=== PATIENT | female | born 1995 | race African-American/Black ===

== ENCOUNTER 2018-03-02 20:41 | Outpatient (REF) | payer MEDICAID, SELFPAY ==
[2018-03-02 22:10] LABS: HCG Qual (Serum) Negative
== END 2018-03-02 21:01 ==
LOC: NCHCN 20:41
PROVIDERS: PCP Specialist/Technologist Athletic Trainer; Visit Provider Specialist/Technologist Athletic Trainer
DX: N91.2 Amenorrhea, unspecified (principal)
CPT/HCPCS: 84703

== ENCOUNTER 2018-03-18 20:09 | Emergency (ER) | payer MEDICAID, SELFPAY ==
[2018-03-18 20:12] VITALS: BP 170/82; PULSE 88; RESP 16; TEMP 36.5; O2SAT 96
[2018-03-18 20:21] VITALS: RESP 18
--- NOTE | 2018-03-18 20:29 | ED.GENADUL_ITS ---
Discharge Plan Disposition Patient Disposition: HOME Condition: Good Discharge Details Chief Complaint: Dizzy/Sync Clinical Impression: Syncope Primary Care Provider: Charanjit Maria ED Provider: Jaiden Burnett Home Meds and New Rx's Prescriptions: Continue aripiprazole [Abilify] 5 MG tablet 5 mg PO MO RF: 0 docusate sodium [Colace] 100 MG capsule 100 mg PO BID RF: 0 trazodone 100 mg Tablet 100 mg PO DAILY RF: 0 albuterol sulfate [ProAir HFA] 90 mcg/actuation Hfa Aerosol Inhaler 2 puff Inhalation DAILY RF: 0 Discharge Instructions Instructions: Syncope (ED) Additional Instructions: follow up with your primary care provider this week. Your blood pressure was elevated here, this should be rechecked with your primary care provider if you have chest pain, difficulty breathing or severe abdominal pain return to the emergency department. Discharge Data Discharge Physician: Jaiden Burnett Medical Decision Making 22 yo female with hx of schizophrenia who comes in with chief complaint of several episodes of brief passing out lasting a few seconds the past few days. She denies any chest pain or sob, no fevers, abd pain, vaginal bleeding, leg pain. She is wells low and perc negative so do not feel pe likely, no hypoxia or tachycardia or evidence of PE. No chest pain or pressure so doubt acs at this time. I suspect psychogenic cause for her symptoms given she does note increased stressors in her life, could also be orthostasis vs vasovagal. Will obtain ecg and hcg. Has normal gait and no deficits on neuro exam so doubt cva ecg shows no evidence of brugada, wpw or other abnormalities. No syncope with exertion so doubt hocm. hcg negative and remains with normal tele here. will have her f/u with her pcp this week and return precautions given Differential Diagnosis orthostasis, vasovagal, psychogenic syncope, ectopic ECG Data Attestation: I personally reviewed and interpreted this ECG (s) as follows: Prior ECG tracings: not available for review Interpretation: sinus rhythm, normal rate at 89, normal pr of 162, no acute st t wave findings HPI General Mode of arrival: ambulatory . Date/Time Provider Initiated Documentation: 03/18/18 20:09 . Limitations to Documentation: no limitations . Information obtained by: patient . History of Present Illness 22 year old F presents to the emergency department with the chief complaint of syncope, and is localized to the head. and it has been intermittent. No relieving factors improve symptom(s), No exacerbating factors reported . Patient notes no other symptoms.. Patient did receive the following treatments prior to arrival, none Related Data Home Medications Medication Instructions Recorded Confirmed docusate sodium [Colace] 100 mg PO BID 03/22/17 03/18/18 aripiprazole [Abilify] 5 mg PO MO tab-cap 09/29/17 03/18/18 albuterol sulfate [ProAir HFA] 2 puff INHALATION DAILY 03/18/18 03/18/18 trazodone 100 mg PO DAILY 03/18/18 03/18/18 Allergies Allergy/AdvReac Type Severity Reaction Status Date / Time Penicillins Allergy Unknown Unverified 03/18/18 20:18 aspirin AdvReac Severe Wheezing Unverified 03/18/18 20:18 General Stated Complaint: Dizzy/Sync JAMES: 3 Review of Systems Review of Systems All systems reviewed & are unremarkable except as noted in HPI and below Constitutional Denies chills, Denies fever(s) and Denies weakness Eyes Denies loss of vision ENT Denies change in voice Cardiovascular Denies chest pain and Denies dyspnea Respiratory Denies dyspnea Gastrointestinal Denies abdominal pain, Denies nausea and Denies vomiting Genitourinary Denies dysuria Musculoskeletal Denies joint swelling Integumentary/Breasts Denies rash Neurologic Denies loss of vision and Denies weakness Psychiatric Denies depression Endocrine Denies cold intolerance and Denies heat intolerance Allergic/Immunologic Reports urticaria PFSH Family History Other Diabetes Essential hypertension Medical History Asthma Insomnia Schizophrenia Social History Smoking/Tobacco Use Status: Current every day Exam Const General: no acute distress Orientation: alert HENMT Head: normal to inspection Ears: external ears normal General nose exam: external nose normal Mouth: moist mucous membranes Eyes General: appearance normal, both eyes and all related structures Neck Neck: normal visual inspection Resp Effort & Inspection: normal respiratory effort and able to speak in complete sentences Cardio Rate: regular rate Skin General skin exam: no rashes or lesions noted Neuro General: alert and oriented x3 Extrem General: normal to inspection Psych Mental Status: mental status grossly normal Course Vital Signs Temperature 36.5 C 03/18/18 20:12 Pulse 88 03/18/18 20:12 Respiratory Rate 16 03/18/18 20:12 Blood Pressure 170/82 H 03/18/18 20:12 Pulse Oximetry 96 03/18/18 20:12 Temperature 36.5 C 03/18/18 20:12 Temperature Source Skin 03/18/18 20:12 Pulse 88 03/18/18 20:12 Respiratory Rate 18 03/18/18 20:21 Respiratory Effort Non-Labored 03/18/18 20:21 Respiratory Depth Normal 03/18/18 20:21 Respiratory Pattern Normal 03/18/18 20:21 Blood Pressure 170/82 H 03/18/18 20:12 Pulse Oximetry 96 03/18/18 20:12 Pain Level 9 03/18/18 20:12
[2018-03-18 21:04] VITALS: BP 149/92; PULSE 87; O2SAT 97
== END 2018-03-18 21:06 | disposition home or self-care (01) ==
LOC: ER 21:08
PROVIDERS: Emergency Provider Emergency Medicine; PCP Specialist/Technologist Athletic Trainer
DX: R42 Dizziness and giddiness (principal)
CPT/HCPCS: 81025; 93005; 99283; 93010

== ENCOUNTER 2018-04-04 14:54 | Emergency (ER) | payer MEDICAID, SELFPAY ==
[2018-04-04 14:58] VITALS: BP 157/99; PULSE 95; RESP 20; TEMP 36.8; O2SAT 96
--- NOTE | 2018-04-04 15:05 | W.ED.GENAD ---
Discharge Plan Disposition Patient Disposition: HOME Condition: Improving Discharge Details Chief Complaint: PsychEval Clinical Impression: Suicidal thoughts, Depression, Financial problems Primary Care Provider: Charanjit Maria ED Provider: Jesus Flynn Home Meds and New Rx's Prescriptions: No Action aripiprazole [Abilify] 5 MG tablet 5 mg PO MO RF: 0 docusate sodium [Colace] 100 MG capsule 100 mg PO BID RF: 0 trazodone 100 mg Tablet 100 mg PO DAILY RF: 0 albuterol sulfate [ProAir HFA] 90 mcg/actuation Hfa Aerosol Inhaler 2 puff Inhalation DAILY RF: 0 PNV cmb#95-ferrous fumarate-FA [] 28 mg iron- 800 mcg Tablet 1 tab PO DAILY RF: 0 Discharge Instructions Instructions: Depression (ED), Suicide Prevention for Adults (ED) Additional Instructions: Please follow the given safety plan and contact [facility] human services if you have any worsening of your psychiatric condition. Feel free to return to the emergency department for any new or worsening symptoms. Referrals: Charanjit Maria [Primary Care Provider] - (As needed for reassessment) Discharge Data Discharge Date/Time-TO BE ENTERED AT DEPARTURE: 04/04/18 19:20 Medical Decision Making <ZACH Chaney - Last Filed: 04/05/18 15:48> Patient 22-year-old female presenting today with chief concern of suicidal ideation. She is accompanied by her fianc?. Patient has history of schizophrenia, asthma, anxiety, depression, suicidal ideation and PTSD. She reports that she has attempted suicide by cutting historically. Was hospitalized 1 year ago after suicidal ideation. She reports that her depression and suicidal ideation seem to be above yesterday. She reports that she and her fianc? are having financial difficulties and seemed to be driving this. Also expressed concerns in her sexual life to nursing staff. States that last night she tried to suffocate herself with a blanket. Her current plan is hang herself. Reports she been taking her medication as prescribed. No recent change to her medication. On exam, she seems calm, cooperative and having good insight. She is appropriate at this time. Is seeking help and is in agreement with moving forward to receive help including admission if necessary. Patient has a counselor whom she sees regularly. She reports she is actively trying to get , last menses was 3 months ago. Will obtain test and laboratory evaluation. Laboratory evaluation significant for mild leukocytosis. As the patient is not having any indication of infection at this point, this is stress mediated. He is seen ALT are also elevated have not been historically. AST is 108, ALT of 97. Patient will need to follow-up with primary care regarding this. UPT negative. Remaining laboratory evaluation without significant abnormality EKG has evaluated the patient. She agrees the patient has concerning history and plan at this point for active suicidal ideation. Agrees that admission is appropriate at this point. Will attempt to find bed placement for the patient At the end of my shift, patient is cooperative and agrees to voluntary admission. Care transition to Ismael Flynn NP will continue to follow patient <Jesus Flynn NP - Last Filed: 04/04/18 23:20> Care of patient was transferred to [place] pending psychiatric admission. Patient remained stable with no new complaint. Patient significant other came to the emergency department while she was eating dinner and after he was done with work and patient stated that she now wanted to contract safety plan and go home as she was feeling better. Patient states that she was able to take a nap and sleep and is now feeling better. Patient states that she did not sleep well last night due to her and her significant other arguing over finances but now that she is got some sleep she feels less suicidal and feels safe to go home. Mental health was re-paged for second evaluation to establish plan of care as patient does see [facility] services on a regular basis for ongoing psychiatric issues. Safety plan was able to be established and patient and significant other are agreeable to plan and given that patient has had multiple occurrences of similar presentation where she states either a medical or psychiatric complaints until significant other gets here and then symptoms improve I do worry about some attention seeking behavior which was discussed with patient. Patient was though encouraged to return for any new or significant worsening of symptoms. After discussion of diagnosis and plan of care patient has no further needs, questions, or concerns and states clear understanding to return to the emergency department for any worsening symptoms. HPI <ZCAH Chaney - Last Filed: 04/05/18 15:48> General Mode of arrival: ambulatory. Date/Time Provider Initiated Documentation: 04/04/18 14:57. Limitations to Documentation: no limitations. Information obtained by: patient and family. History of Present Illness 22 year old F presents to the emergency department with the chief complaint of suicidal ideation, described as severe, Patient started experiencing this day(s) (1) and it has been constant. No exacerbating factors reported . Patient notes no other symptoms.; denies confusion, chest pain, cough, fever/chills, headaches, loss of appetite, malaise, nausea/vomiting, rash, shortness of breath and syncope. Patient did receive the following treatments prior to arrival, other (contacted ANUSHA BANG who advised patient coming for evaluation. She reports she has been taking medications as prescribed, no recent change in meds) Related Data Home Medications Medication Instructions Recorded Confirmed docusate sodium [Colace] 100 mg PO BID 03/22/17 04/04/18 aripiprazole [Abilify] 5 mg PO MO tab-cap 09/29/17 04/04/18 albuterol sulfate [ProAir HFA] 2 puff INHALATION DAILY 03/18/18 04/04/18 trazodone 100 mg PO DAILY 03/18/18 04/04/18 PNV cmb#95-ferrous fumarate-FA 1 tab PO DAILY 04/04/18 04/04/18 [] Allergies Allergy/AdvReac Type Severity Reaction Status Date / Time Penicillins Allergy Unknown Unverified 04/04/18 15:01 aspirin AdvReac Severe Wheezing Unverified 04/04/18 15:01 General Stated Complaint: PsychEval JAMES: 2 Review of Systems <ZACH Chaney - Last Filed: 04/05/18 15:48> Constitutional Reports as per HPI and Denies headache(s) Eyes Denies change in vision ENT Denies headache(s) Cardiovascular Reports as per HPI, Denies chest pain, Denies palpitations, Denies dyspnea and Denies dyspnea on exertion Respiratory Denies cough, Denies dyspnea and Denies dyspnea on exertion Gastrointestinal Denies abdominal pain, Denies nausea and Denies vomiting Genitourinary Reports system reviewed and no additional complaints, except as docu (denies any change in urinary habits) and Reports abnormal menses (reports last menses was 3 months ago, reports she is trying to become . ) Musculoskeletal Denies abnormal gait and Denies back pain Integumentary/Breasts Denies rash Neurologic Denies abnormal gait, Denies headache(s) and Denies memory loss Psychiatric Reports as per HPI, Reports anxiety, Denies change in appetite, Denies depression, Denies auditory hallucinations, Denies irritability and Denies memory loss Endocrine Denies palpitations Exam <ZACH Chaney - Last Filed: 04/05/18 15:48> Const General: cooperative, healthy appearing, comfortable, no acute distress, well developed and well groomed Nutritional Appearance: well nourished and obese Orientation: alert and awake HENMT Head: normal to inspection Ears: hearing grossly normal bilaterally Eyes General: appearance normal, both eyes and all related structures Resp Effort & Inspection: normal respiratory effort, able to speak in complete sentences and no respiratory distress Auscultation: clear to auscultation bilaterally, no rales, no rhonchi and no wheezes Cardio Rate: regular rate Rhythm: regular rhythm Heart Sounds: S1 normal and S2 normal Skin General skin exam: no rashes or lesions noted Lesions: no lesions Rashes: no rashes Neuro General: alert, awake and oriented x3 Cranial Nerves: CN's II-XI intact bilaterally Cognition: normal cognition Speech: speech normal Gait: normal gait Psych Appearance: grossly normal and well kempt Mental Status: mental status grossly normal Speech and Movement: speech and movement normal Mood: congruent mood Affect: normal affect Attitude: cooperative Thought Process: normal Thought Content: normal Insight: insight good Judgment: judgment good Course <ZACH Chaney - Last Filed: 04/05/18 15:48> Vital Signs Temperature 36.8 C 04/04/18 14:58 Pulse 95 H 04/04/18 14:58 Respiratory Rate 20 04/04/18 14:58 Blood Pressure 157/99 H 04/04/18 14:58 Pulse Oximetry 96 04/04/18 14:58 Temperature 36.8 C 04/04/18 14:58 Temperature Source Temporal Artery Scan 04/04/18 14:58 Pulse 95 H 04/04/18 14:58 Respiratory Rate 20 04/04/18 14:58 Respiratory Effort Non-Labored 04/04/18 14:58 Blood Pressure 157/99 H 04/04/18 14:58 Blood Pressure Position Sitting 04/04/18 14:58 Pulse Oximetry 96 04/04/18 14:58 Oxygen Delivery Method Room Air 04/04/18 14:58 Oxygen Flow Rate 0 04/04/18 14:58 Pain Level 6 04/04/18 14:58 Sign Out <ZACH Chaney - Last Filed: 04/05/18 15:48> Sign Out Data: Sign Out Comment: Patient is actively suicidal. Will need f/u with PCP for elevated AST, ALT. Evaluated by [facility], will need placement. Awaiting bed. Care transitioned to Ismael Flynn NP Last updated by Michelle Sapp PA at 04/04/18 17:01
--- NOTE | 2018-04-04 15:23 | ED.GENADUL_ITS ---
Discharge Plan Disposition Patient Disposition: HOME Condition: Improving Discharge Details Chief Complaint: PsychEval Clinical Impression: Suicidal thoughts, Depression, Financial problems Primary Care Provider: Charanjit Maria ED Provider: Jesus Flynn Home Meds and New Rx's Prescriptions: No Action aripiprazole [Abilify] 5 MG tablet 5 mg PO MO RF: 0 docusate sodium [Colace] 100 MG capsule 100 mg PO BID RF: 0 trazodone 100 mg Tablet 100 mg PO DAILY RF: 0 albuterol sulfate [ProAir HFA] 90 mcg/actuation Hfa Aerosol Inhaler 2 puff Inhalation DAILY RF: 0 PNV cmb#95-ferrous fumarate-FA [] 28 mg iron- 800 mcg Tablet 1 tab PO DAILY RF: 0 Discharge Instructions Instructions: Depression (ED), Suicide Prevention for Adults (ED) Additional Instructions: Please follow the given safety plan and contact [facility] human services if you have any worsening of your psychiatric condition. Feel free to return to the emergency department for any new or worsening symptoms. Referrals: Charanjit Maria [Primary Care Provider] - (As needed for reassessment) Discharge Data Discharge Date/Time-TO BE ENTERED AT DEPARTURE: 04/04/18 19:20 Medical Decision Making <ZACH Chaney - Last Filed: 04/05/18 15:48> Patient 22-year-old female presenting today with chief concern of suicidal ideation. She is accompanied by her fianc?. Patient has history of schizophrenia, asthma, anxiety, depression, suicidal ideation and PTSD. She reports that she has attempted suicide by cutting historically. Was hospitalized 1 year ago after suicidal ideation. She reports that her depression and suicidal ideation seem to be above yesterday. She reports that she and her fianc? are having financial difficulties and seemed to be driving this. Also expressed concerns in her sexual life to nursing staff. States that last night she tried to suffocate herself with a blanket. Her current plan is hang herself. Reports she been taking her medication as prescribed. No recent change to her medication. On exam, she seems calm, cooperative and having good insight. She is appropriate at this time. Is seeking help and is in agreement with moving forward to receive help including admission if necessary. Patient has a counselor whom she sees regularly. She reports she is actively trying to get , last menses was 3 months ago. Will obtain test and laboratory evaluation. Laboratory evaluation significant for mild leukocytosis. As the patient is not having any indication of infection at this point, this is stress mediated. He is seen ALT are also elevated have not been historically. AST is 108, ALT of 97. Patient will need to follow-up with primary care regarding this. UPT negative. Remaining laboratory evaluation without significant abnormality EKG has evaluated the patient. She agrees the patient has concerning history and plan at this point for active suicidal ideation. Agrees that admission is appropriate at this point. Will attempt to find bed placement for the patient At the end of my shift, patient is cooperative and agrees to voluntary admission. Care transition to Ismael Flynn NP will continue to follow patient <Jesus Flynn NP - Last Filed: 04/04/18 23:20> Care of patient was transferred to [place] pending psychiatric admission. Patient remained stable with no new complaint. Patient significant other came to the emergency department while she was eating dinner and after he was done with work and patient stated that she now wanted to contract safety plan and go home as she was feeling better. Patient states that she was able to take a nap and sleep and is now feeling better. Patient states that she did not sleep well last night due to her and her significant other arguing over finances but now that she is got some sleep she feels less suicidal and feels safe to go home. Mental health was re-paged for second evaluation to establish plan of care as patient does see [facility] services on a regular basis for ongoing psychiatric issues. Safety plan was able to be established and patient and significant other are agreeable to plan and given that patient has had multiple occurrences of similar presentation where she states either a medical or psychiatric complaints until significant other gets here and then symptoms improve I do worry about some attention seeking behavior which was discussed with patient. Patient was though encouraged to return for any new or significant worsening of symptoms. After discussion of diagnosis and plan of care patient has no further needs, questions, or concerns and states clear understanding to return to the emergency department for any worsening symptoms. HPI <ZACH Chaney - Last Filed: 04/05/18 15:48> General Mode of arrival: ambulatory . Date/Time Provider Initiated Documentation: 04/04/18 14:57 . Limitations to Documentation: no limitations . Information obtained by: patient and family . History of Present Illness 22 year old F presents to the emergency department with the chief complaint of suicidal ideation, described as severe, Patient started experiencing this day(s) (1) and it has been constant. No exacerbating factors reported . Patient notes no other symptoms.; denies confusion, chest pain, cough, fever/ chills, headaches, loss of appetite, malaise, nausea/vomiting, rash, shortness of breath and syncope. Patient did receive the following treatments prior to arrival, other (contacted ANUSHA BANG who advised patient coming for evaluation. She reports she has been taking medications as prescribed, no recent change in meds ) Related Data Home Medications Medication Instructions Recorded Confirmed docusate sodium [Colace] 100 mg PO BID 03/22/17 04/04/18 aripiprazole [Abilify] 5 mg PO MO tab-cap 09/29/17 04/04/18 albuterol sulfate [ProAir HFA] 2 puff INHALATION DAILY 03/18/18 04/04/18 trazodone 100 mg PO DAILY 03/18/18 04/04/18 PNV cmb#95-ferrous fumarate-FA 1 tab PO DAILY 04/04/18 04/04/18 [] Allergies Allergy/AdvReac Type Severity Reaction Status Date / Time Penicillins Allergy Unknown Unverified 04/04/18 15:01 aspirin AdvReac Severe Wheezing Unverified 04/04/18 15:01 General Stated Complaint: PsychEval JAMES: 2 Review of Systems <ZACH Chaney - Last Filed: 04/05/18 15:48> Constitutional Reports as per HPI and Denies headache(s) Eyes Denies change in vision ENT Denies headache(s) Cardiovascular Reports as per HPI, Denies chest pain, Denies palpitations, Denies dyspnea and Denies dyspnea on exertion Respiratory Denies cough, Denies dyspnea and Denies dyspnea on exertion Gastrointestinal Denies abdominal pain, Denies nausea and Denies vomiting Genitourinary Reports system reviewed and no additional complaints, except as docu (denies any change in urinary habits) and Reports abnormal menses (reports last menses was 3 months ago, reports she is trying to become . ) Musculoskeletal Denies abnormal gait and Denies back pain Integumentary/Breasts Denies rash Neurologic Denies abnormal gait, Denies headache(s) and Denies memory loss Psychiatric Reports as per HPI, Reports anxiety, Denies change in appetite, Denies depression, Denies auditory hallucinations, Denies irritability and Denies memory loss Endocrine Denies palpitations Exam <ZACH Chaney - Last Filed: 04/05/18 15:48> Const General: cooperative, healthy appearing, comfortable, no acute distress, well developed and well groomed Nutritional Appearance: well nourished and obese Orientation: alert and awake HENMT Head: normal to inspection Ears: hearing grossly normal bilaterally Eyes General: appearance normal, both eyes and all related structures Resp Effort & Inspection: normal respiratory effort, able to speak in complete sentences and no respiratory distress Auscultation: clear to auscultation bilaterally, no rales, no rhonchi and no wheezes Cardio Rate: regular rate Rhythm: regular rhythm Heart Sounds: S1 normal and S2 normal Skin General skin exam: no rashes or lesions noted Lesions: no lesions Rashes: no rashes Neuro General: alert, awake and oriented x3 Cranial Nerves: CN's II-XI intact bilaterally Cognition: normal cognition Speech: speech normal Gait: normal gait Psych Appearance: grossly normal and well kempt Mental Status: mental status grossly normal Speech and Movement: speech and movement normal Mood: congruent mood Affect: normal affect Attitude: cooperative Thought Process: normal Thought Content: normal Insight: insight good Judgment: judgment good Course <ZACH Chaney - Last Filed: 04/05/18 15:48> Vital Signs Temperature 36.8 C 04/04/18 14:58 Pulse 95 H 04/04/18 14:58 Respiratory Rate 20 04/04/18 14:58 Blood Pressure 157/99 H 04/04/18 14:58 Pulse Oximetry 96 04/04/18 14:58 Temperature 36.8 C 04/04/18 14:58 Temperature Source Temporal Artery Scan 04/04/18 14:58 Pulse 95 H 04/04/18 14:58 Respiratory Rate 20 04/04/18 14:58 Respiratory Effort Non-Labored 04/04/18 14:58 Blood Pressure 157/99 H 04/04/18 14:58 Blood Pressure Position Sitting 04/04/18 14:58 Pulse Oximetry 96 04/04/18 14:58 Oxygen Delivery Method Room Air 04/04/18 14:58 Oxygen Flow Rate 0 04/04/18 14:58 Pain Level 6 04/04/18 14:58 Sign Out <ZACH Chaney - Last Filed: 04/05/18 15:48> Sign Out Data: Sign Out Comment: Patient is actively suicidal. Will need f/u with PCP for elevated AST, ALT. Evaluated by [facility], will need placement. Awaiting bed. Care transitioned to Ismael Flynn NP Last updated by Michelle Sapp PA at 04/04/18 17:01
[2018-04-04 15:50] LABS: Abs Immature Grans 0.01 k/cumm (0.0-0.09); Absolute Basophil Count 0.02 k/cumm (0.0-0.2); Absolute Eosinophil Count 0.25 k/cumm (0.0-0.7); Absolute Lymphocyte Count 2.82 k/cumm (1.2-3.4); Absolute Monocyte Count 0.84 k/cumm (0.11-0.7); Basophils % 0.2; Eosinophils % 2.1; HCT 42.6 % (36.0-46.0); HGB 14.3 g/dL (12.0-15.5); Immature Grans % 0.1; Lymphocytes % 23.4; Mean Corp. HGB Concentration 33.6 g/dL (32.0-36.0); Mean Corpuscular Hemoglobin 30.8 pg (27.0-33.0); Mean Corpuscular Volume 91.8 fL (80-95); Mean Platelet Volume 11.2 fL (8.0-11.0); Neutrophils % 67.2; Platelet Count 281 x1000/uL (130-400); RBC 4.64 m/cumm (4.00-5.20); RBC Distribution Width 13.2 % (11.7-14.6); White Blood Cell Count 12.05 k/cumm (4.4-10.8)
[2018-04-04 16:04] LABS: Bilirubin Negative (Negative); Blood Negative (Negative); Clarity Clear; Glucose Negative (Negative); Ketones Negative (Negative); Leukocyte Esterase Negative (Negative); Nitrite Negative (Negative); Urobilinogen 0.2 EU/dL (Up TO 0.2); pH 7.5 (5-8)
--- NOTE | 2018-04-04 16:04 | PDOC.ERCMPRO ---
Care Management Progress Note 04/04 at 1515-Talia states she is having suicidal thoughts. Stated she tried to suffocate herself last evening with a blanket. Talia states to nursing that she wants to hang herself. Met with Talia, discussed the importance of keeping her safe while she is here in the hospital. Talia stated that she understood our discussion around the care plan, for which we reviewed each item. Michelle SERRANO has ordered a CPSO and Sherlyn Nursing Manager Commercial is aware. Huddle was had in the Emergency Department with Michelle SERRANO, Manager Commercial Sherlyn, Rhea RN, and Jacqueline Rodriguez RN. Care plan was distributed to the appropriate team members. 161Jacob-Nurys MONTEZ has just arrived and will interview patient. Care Plan Talia Joaquin Voluntary 04/04/18 1. Patient can wear own clothing 2. Comfort bath system for personal hygiene 3. No personal belongings in the room 4. Finger foods only, may have a spoon, nursing to account for post meals 5. No telephone 6. Visitors: Boyfriend Nic only 7. Supervised bathroom privileges 8. Patient to have CPSO, licensed sitter, DESIREE, RESEARCH ENGINEER MARINE EQUIPMENT, head sulfide operator 9. May have crayons, paper, and activities (if appropriate) from the mental health activity cart in ED. 10. Patient may have television in available 11. Follow policy on admitted behavioral health patient Please adhere to this care plan. Any changes or issues, please call a huddle: notify [facility] amortization schedule clerk Care Management [phone]; and notify [facility] amortization schedule clerk clinician at [phone]. Any changes, a new care plan must be written and distributed.
[2018-04-04 16:13] LABS: *AMPHETAMINES SCREEN URINE Negative (Negative); *BARBITURATES SCREEN URINE Negative (Negative); *BENZODIAZEPINES SCREEN URINE Negative (Negative); Cannabinoids THC Negative (Negative); Cocaine Screen,Urine Negative (Negative); METHADONE URINE SCREEN Negative (Negative); OPIATES URINE SCREEN Negative (Negative); Tricyclic Antidepressants Negative (Negative)
--- NOTE | 2018-04-04 16:13 | CMPROGNOTE_ITS ---
Care Management Progress Note 04/04 at 1515-Talia states she is having suicidal thoughts. Stated she tried to suffocate herself last evening with a blanket. Talia states to nursing that she wants to hang herself. Met with Talia, discussed the importance of keeping her safe while she is here in the hospital. Talia stated that she understood our discussion around the care plan, for which we reviewed each item. Michelle SERRANO has ordered a CPSO and Sherlyn Nursing Automotive Manufacturer is aware. Huddle was had in the Emergency Department with Michelle SERRANO, Automotive Manufacturer Sherlyn, Rhea RN, and Jacqueline Rodriguez RN. Care plan was distributed to the appropriate team members. 161Jacob-Nurys MONTEZ has just arrived and will interview patient. Care Plan Talia Joaquin Voluntary 04/04/18 1. Patient can wear own clothing 2. Comfort bath system for personal hygiene 3. No personal belongings in the room 4. Finger foods only, may have a spoon, nursing to account for post meals 5. No telephone 6. Visitors: Boyfriend Nic only 7. Supervised bathroom privileges 8. Patient to have CPSO, licensed sitter, DESIREE, REFRACTORY REPAIRER, sexual assault response coordinator 9. May have crayons, paper, and activities (if appropriate) from the mental health activity cart in ED. 10. Patient may have television in available 11. Follow policy on admitted behavioral health patient Please adhere to this care plan. Any changes or issues, please call a huddle: notify [facility] radiocommunications technician Care Management [phone]; and notify [facility] radiocommunications technician clinician at [phone]. Any changes, a new care plan must be written and distributed.
[2018-04-04 16:15] LABS: ALT 97 U/L (12-78); AST 108 U/L (15-37); Albumin 3.3 g/dL (3.4-5.0); Alkaline Phosphatase 75 U/L (46-116); Anion Gap 6.4 mmol/L (3-11); BUN 11 mg/dL (7-18); Bilirubin, Total 0.1 mg/dL (0.2-1.0); CO2 30.6 mmol/L (21.0-32.0); CREATININE 0.56 mg/dL (0.55-1.02); Calcium 9.3 mg/dL (8.5-10.1); Chloride 99 mmol/L (98-107); Glucose 152 mg/dL (70-100); Potassium 4.1 mmol/L (3.5-5.1); Sodium 136 mmol/L (136-145); TSH 2.41 uIU/mL (0.358-3.74); Total Protein 8.1 g/dL (6.4-8.2)
[2018-04-04 16:18] LABS: Salicylate 2.9 mg/dL (2.8-20.0)
[2018-04-04 16:23] LABS: Acetaminophen < 2 ug/mL (10-30)
[2018-04-04 16:29] LABS: ETHANOL BLOOD < 3.0 mg/dL (<3)
--- NOTE | 2018-04-04 16:30 | PDOC.MHCN ---
Date of service: 04/04/18 Time of Service: 16:31 Mental Health Crisis Note Presenting Issue How did you arrive at the ED and why did you come: Patient arrived at the emergency department via private vehicle for thoughts of suicide. Precipitating Factors Client states that she is suicidal. She states that she tried to suffocate herself yesterday with a blanket. She states that she engaged in self-harm (cutting) about a month ago. She is unable to contract for safety. Disposition BEHAVIOR: No abnormal behavior to report EYE CONTACT: Direct MOOD: Calm and cooperative AFFECT: Flat APPETITE: Good SLEEP(trouble falling/staying asleep: Good Plan Client is unable to contract for safety. She will remain at the hospital on a voluntary status until a bed becomes available at a [facility] treatment facility. There are currently no beds available but referrals have been sent to [facility], [facility], and [facility]. Signature Clinician's Name/Title: Nurys Joaquin - [facility] Emergency Clinician
--- NOTE | 2018-04-04 16:49 | PDOC.MHCN_ITS ---
Date of service: 04/04/18 Time of Service: 16:31 Mental Health Crisis Note Presenting Issue How did you arrive at the ED and why did you come: Patient arrived at the emergency department via private vehicle for thoughts of suicide. Precipitating Factors Client states that she is suicidal. She states that she tried to suffocate herself yesterday with a blanket. She states that she engaged in self-harm ( cutting) about a month ago. She is unable to contract for safety. Disposition BEHAVIOR: No abnormal behavior to report EYE CONTACT: Direct MOOD: Calm and cooperative AFFECT: Flat APPETITE: Good SLEEP(trouble falling/staying asleep: Good Plan Client is unable to contract for safety. She will remain at the hospital on a voluntary status until a bed becomes available at a [facility] treatment facility. There are currently no beds available but referrals have been sent to [facility], [facility], and [facility] Signature Clinician's Name/Title: Nurys Joaquin - [facility] Emergency Clinician
--- NOTE | 2018-04-04 18:04 | PDOC.MHCN ---
Mental Health Crisis Note Presenting Issue How did you arrive at the ED and why did you come: Patient's flex brings her to the ER because she is feeling suicidal. Precipitating Factors Several hours after arriving at the ER, patient reports she is feeling better and she requests to go home. Upon a reassessment, she states her depression is a 6 on a scale of 1 to 10 but denies current suicidal ideation. She states that she has been unable to take naps over the past couple of days as she normally does due to being busy during the day. This has caused her to become tired and irritable. She and her fiance have also been arguing about money which resulted in her feeling suicidal. She states she was able to nap while in the ER, so she is now feeling better. We discuss that when she is feeling suicidal during [facility]' business hours, that she should come to [facility] for an assessment as opposed to coming directly to [facility]. She is agreeable to trying this. Disposition BEHAVIOR: Cooperative. EYE CONTACT: Good. MOOD: Describes her mood as depressed. AFFECT: Normal. APPETITE: Good. SLEEP(trouble falling/staying asleep: Good. Plan After consulting with Jesus Flynn, ER provider, the decision is made to discharge patient home with her fidarren. She has an upcoming appointment with her medication provider at [facility] on April 20 and a therapy appointment with Vi Joseph, also at [facility], on May 15. Patient knows how to contact [facility] emergency services and she will call as needed.
--- NOTE | 2018-04-04 18:16 | PDOC.MHCN_ITS ---
Mental Health Crisis Note Presenting Issue How did you arrive at the ED and why did you come: Patient's flex brings her to the ER because she is feeling suicidal. Precipitating Factors Several hours after arriving at the ER, patient reports she is feeling better and she requests to go home. Upon a reassessment, she states her depression is a 6 on a scale of 1 to 10 but denies current suicidal ideation. She states that she has been unable to take naps over the past couple of days as she normally does due to being busy during the day. This has caused her to become tired and irritable. She and her fiance have also been arguing about money which resulted in her feeling suicidal. She states she was able to nap while in the ER, so she is now feeling better. We discuss that when she is feeling suicidal during [facility]' business hours, that she should come to [facility] for an assessment as opposed to coming directly to [facility]. She is agreeable to trying this. Disposition BEHAVIOR: Cooperative. EYE CONTACT: Good. MOOD: Describes her mood as depressed. AFFECT: Normal. APPETITE: Good. SLEEP(trouble falling/staying asleep: Good. Plan After consulting with Jesus Flynn, ER provider, the decision is made to discharge patient home with her fidarren. She has an upcoming appointment with her medication provider at [facility] on April 20 and a therapy appointment with Vi Joseph, also at [facility], on May 15. Patient knows how to contact [facility] emergency services and she will call as needed.
--- NOTE | 2018-04-04 18:55 | PDOC.ERCMPRO ---
- If Service Date Differs Date of service: 04/04/18 Time of Service: 18:55 Care Management Progress Note CM received notification from STAR Bianchi, that Talia will be returning home today. She will F/U with [facility] in the community and has agreed to reaching out to [facility] for an assessment.
[2018-04-04 18:56] VITALS: BP 136/90; PULSE 81; RESP 20; TEMP 36.8; O2SAT 99
--- NOTE | 2018-04-04 18:57 | CMPROGNOTE_ITS ---
- If Service Date Differs Date of service: 04/04/18 Time of Service: 18:55 Care Management Progress Note CM received notification from STAR Bianchi, that Talia will be returning home today. She will F/U with [facility] in the community and has agreed to reaching out to [facility] for an assessment.
== END 2018-04-04 19:20 | disposition home or self-care (01) ==
PROVIDERS: Physician Assistant; Emergency Provider Nurse Practitioner Family; PCP Specialist/Technologist Athletic Trainer
DX: F41.8 Other specified anxiety disorders (principal); R45.851 Suicidal ideations; Z59.9 Problem related to housing and economic circumstances, unspecified
CPT/HCPCS: 36415; 80053; 80307; 81025; 93005; 99285; 80320; 80329; 81003; 84443; 85025; 93010; 99284

== ENCOUNTER 2018-04-17 09:21 | Emergency (ER) | payer MEDICAID, SELFPAY ==
[2018-04-17 09:23] VITALS: BP 155/95; PULSE 78; RESP 16; TEMP 36.5; O2SAT 96
--- NOTE | 2018-04-17 10:05 | ED.GENADUL_ITS ---
Discharge Plan Disposition Patient Disposition: HOME Condition: Improving Discharge Details Chief Complaint: Abd Prob Clinical Impression: Abdominal pain Reason For Visit: JESSICA Primary Care Provider: Charanjit Maria ED Provider: Jesus Flynn Home Meds and New Rx's Prescriptions: Continue aripiprazole [Abilify] 5 MG tablet 5 mg PO MO RF: 0 docusate sodium [Colace] 100 MG capsule 100 mg PO BID RF: 0 trazodone 100 mg Tablet 100 mg PO DAILY RF: 0 albuterol sulfate [ProAir HFA] 90 mcg/actuation Hfa Aerosol Inhaler 2 puff Inhalation DAILY RF: 0 PNV cmb#95-ferrous fumarate-FA [] 28 mg iron- 800 mcg Tablet 1 tab PO DAILY RF: 0 metformin 500 mg Tablet 500 mg PO BID RF: 0 sertraline 25 mg Tablet 25 mg PO DAILY RF: 0 Discharge Instructions Instructions: Abdominal Pain (ED) Additional Instructions: Patient is medically clear to return to the care bed. Patient should take previously prescribed medication as scheduled and follow-up with primary care provider as needed for reassessment. Patient to return to the emergency department for any new or significant worsening of symptoms. Referrals: Charanjit Maria [Primary Care Provider] - (As needed for reassessment ) Discharge Data Discharge Date/Time-TO BE ENTERED AT DEPARTURE: 04/17/18 14:06 Medical Decision Making Patient presenting to the emergency department for chief complaint of abdominal pain. Patient reports approximately 30 minutes prior to arrival she had a sudden onset of sharp left lower quadrant abdominal pain. Patient denies any injury or trauma. She does state that this has occurred in the past and pain seems to last for approximately a month with no specific worsening with eating, no fever chills, no diarrhea. Physical exam is positive for Torres sign and mild left lower quadrant tenderness no other specific physical exam findings are noted. Of notation is patient's large body habitus making good physical exam of abdomen slightly difficult. Plan to check labs and CT image. Concern for possible inflammatory bowel disease, cholecystitis, other intra-abdominal pathology. Review of labs is otherwise nondiagnostic and shows mild elevation of LFTs otherwise no severe leukocytosis and CT scan shows fatty liver disease otherwise no acute intra-abdominal findings noted. Patient was reassessed and stated improvement of symptoms. Patient was p.o. challenged and was able to tolerate intake and stated she was feeling better after eating food again. Patient was discharged and informed to follow-up with primary care for reassessment as needed or return for any new or worsening symptoms. After discussion of diagnosis and plan of care patient has no further needs, questions , or concerns and states clear understanding to return to the emergency department for any worsening symptoms. HPI General Mode of arrival: EMS . Date/Time Provider Initiated Documentation: 04/17/18 09:45 . Limitations to Documentation: no limitations . Information obtained by: patient and RN notes reviewed . History of Present Illness 22 year old F presents to the emergency department with the chief complaint of Abd pain, with intensity rated at 9. Quality is described as sharp, and is localized to the abdomen (llq). Patient reports no radiation. Patient started experiencing this minute(s) (30) and it has been constant. No relieving factors improve symptom(s), No exacerbating factors reported . Patient notes no other symptoms.. Patient did receive the following treatments prior to arrival, none Related Data Home Medications Medication Instructions Recorded Confirmed docusate sodium [Colace] 100 mg PO BID 03/22/17 04/17/18 aripiprazole [Abilify] 5 mg PO MO tab-cap 09/29/17 04/17/18 albuterol sulfate [ProAir HFA] 2 puff INHALATION DAILY 03/18/18 04/17/18 trazodone 100 mg PO DAILY 03/18/18 04/17/18 PNV cmb#95-ferrous fumarate-FA 1 tab PO DAILY 04/04/18 04/17/18 [] metformin 500 mg PO BID 04/17/18 04/17/18 sertraline 25 mg PO DAILY 04/17/18 04/17/18 Allergies Allergy/AdvReac Type Severity Reaction Status Date / Time Penicillins Allergy Unknown Unverified 04/17/18 09:27 aspirin AdvReac Severe Wheezing Unverified 04/17/18 09:27 General Stated Complaint: Abd Prob JAMES: 3 Review of Systems Constitutional Denies chills and Denies fever(s) Cardiovascular Denies chest pain and Denies dyspnea Respiratory Denies dyspnea Gastrointestinal Reports as per HPI, Reports abdominal pain, Denies melena, Denies change in bowel habits, Denies change in stool character, Denies constipation, Denies diarrhea, Denies nausea and Denies vomiting Genitourinary Reports amenorrhea, Denies hematuria, Denies urinary incontinence, Denies urinary hesitancy, Denies urinary urgency and Denies vaginal discharge Integumentary/Breasts Denies rash PFSH Family History Other Diabetes Essential hypertension Medical History Asthma Insomnia Schizophrenia Social History Smoking/Tobacco Use Status: Current every day Exam Const General: cooperative Orientation: alert, awake and oriented x3 Resp Effort & Inspection: normal respiratory effort and able to speak in complete sentences Auscultation: clear to auscultation bilaterally Cardio Rate: regular rate Rhythm: regular rhythm Heart Sounds: S1 normal and S2 normal GI Inspection: large pannus and obesity Palpation: soft, no hepatosplenomegaly, not firm, no guarding, no masses, no pulsatile masses, not rigid, no splenomegaly and tender in the LLQ, in the RUQ and Torres's sign positive; not at McBurney's point, with no rebound tenderness and Rovsing's sign negative Auscultation: normal bowel sounds Back/Spine/Pelvis Back: no CVA tenderness Neuro General: alert, awake, oriented x3, gait normal and moves all extremities Psych Thought Content: no homicidality and suicidality Course Vital Signs Temperature 36.5 C 04/17/18 09:23 Pulse 78 04/17/18 09:23 Respiratory Rate 16 04/17/18 09:23 Blood Pressure 155/95 H 04/17/18 09:23 Pulse Oximetry 96 04/17/18 09:23 Temperature 36.5 C 04/17/18 09:23 Temperature Source Skin 04/17/18 09:23 Pulse 78 04/17/18 09:23 Respiratory Rate 16 04/17/18 09:23 Blood Pressure 155/95 H 04/17/18 09:23 Blood Pressure Position Supine 04/17/18 09:23 Pulse Oximetry 96 04/17/18 09:23 Oxygen Delivery Method Room Air 04/17/18 09:23 Oxygen Flow Rate 0 04/17/18 09:23 Pain Level 9 04/17/18 09:23 Lab/Test Results Lab/Test Results: POC- Test(urine) Negative
[2018-04-17 10:18] LABS: Abs Immature Grans 0.02 k/cumm (0.0-0.09); Absolute Basophil Count 0.03 k/cumm (0.0-0.2); Absolute Lymphocyte Count 2.34 k/cumm (1.2-3.4); Absolute Monocyte Count 0.53 k/cumm (0.11-0.7); Absolute Neutrophil Count 6.82 k/cumm (1.2-6.7); Basophils % 0.3; HCT 42.5 % (36.0-46.0); HGB 14.1 g/dL (12.0-15.5); Immature Grans % 0.2; Lymphocytes % 23.5; Mean Corp. HGB Concentration 33.2 g/dL (32.0-36.0); Mean Corpuscular Hemoglobin 30.7 pg (27.0-33.0); Mean Corpuscular Volume 92.4 fL (80-95); Monocytes % 5.3; Neutrophils % 68.7; Platelet Count 272 x1000/uL (130-400); White Blood Cell Count 9.94 k/cumm (4.4-10.8)
[2018-04-17 10:32] LABS: ALT 136 U/L (12-78); AST 163 U/L (15-37); Albumin 3.4 g/dL (3.4-5.0); Alkaline Phosphatase 68 U/L (46-116); Anion Gap 8.6 mmol/L (3-11); BUN 10 mg/dL (7-18); Bilirubin, Total 0.3 mg/dL (0.2-1.0); CO2 30.4 mmol/L (21.0-32.0); CREATININE 0.73 mg/dL (0.55-1.02); Chloride 98 mmol/L (98-107); Glucose 118 mg/dL (70-100); Lipase 78 U/L (73-393); Sodium 137 mmol/L (136-145); Total Protein 8.2 g/dL (6.4-8.2)
[2018-04-17] MEDS: Omnipaque 350 MG/ML 100 ML BTL IJ (11:27)
--- NOTE | 2018-04-17 11:35 | DI.CT_ITS ---
SYMPTOM/DIAGNOSIS: ABD PAIN CT ABDOMEN AND PELVIS: CT scan of the abdomen and pelvis was performed following intravenous contrast administration. There are no priors for comparison. Comparison ultrasound is 11/24/17 The visualized lung bases are clear. There is diffuse decreased attenuation of the liver consistent with fatty infiltration. The liver appears mildly enlarged. No suspicious hepatic mass is seen. The gallbladder is negative. No biliary ductal dilatation is present. The portal and superior mesenteric veins are patent. The pancreas, spleen and adrenal glands are unremarkable. The kidneys show normal and symmetric enhancement. No evidence of a solid renal mass or obstruction. The urinary bladder is intact. The reproductive organs are unremarkable. The bowel shows no evidence of obstruction or inflammation. No findings to suggest an acute appendicitis are present. The aorta is of normal caliber. No significant abdominal or pelvic adenopathy, ascites or pneumoperitoneum is seen. No acute osseous abnormality is identified. IMPRESSION: No evidence of an acute abdomen. The findings were discussed with the Emergency Department on the date of the examination.
[2018-04-17 12:16] LABS: Bilirubin Negative (Negative); Blood Trace-intact (Negative); Clarity Clear; Glucose Negative (Negative); Ketones Negative (Negative); Leukocyte Esterase Negative (Negative); Nitrite Negative (Negative); Specific Gravity <= 1.005 (1.005-1.025); Urobilinogen 0.2 EU/dL (Up TO 0.2)
[2018-04-17 12:23] LABS: Epithelial Cells Many HPF (Negative); WBC 0-2 HPF (0-5)
[2018-04-17 12:24] LABS: Bacteria Rare HPF (Negative); C & S Indicated? No/Sq. Contamination; Casts Negative LPF (Negative); Crystals Negative HPF (Negative); Mucus Trace (Negative)
[2018-04-17 12:44] VITALS: BP 155/95; PULSE 78; RESP 16; TEMP 36.5; O2SAT 96
== END 2018-04-17 14:06 | disposition home or self-care (01) ==
PROVIDERS: Emergency Provider Nurse Practitioner Family; PCP Specialist/Technologist Athletic Trainer
DX: R10.32 Left lower quadrant pain (principal)
CPT/HCPCS: 80053; 81025; 83690; 99285; 74177; 81003; 81015; 85025; 99283; J3490

== ENCOUNTER 2018-04-18 22:54 | Emergency (ER) | payer MEDICAID, SELFPAY ==
[2018-04-18 23:07] VITALS: BP 159/96; PULSE 88; RESP 16; TEMP 36.4; O2SAT 97
--- NOTE | 2018-04-18 23:07 | DI.CT_ITS ---
SYMPTOMS/DIAGNOSIS: DOUBLE VISION S/P HITTING HEAD ON FRONTAL SIDE DURING FALL CRANIAL CT: A noncontrast cranial CT was performed. The ventricular system is normal in appearance. There is no evidence of an intracranial mass lesion. There is no evidence of a subdural or epidural hematoma. No focal areas of decreased attenuation are seen. CONCLUSION: Normal noncontrast cranial CT.
--- NOTE | 2018-04-18 23:44 | DI.VRAD_ITS ---
EXAM: CT Head Without Intravenous Contrast EXAM DATE/TIME: 04/18/2018 11:08 PM CLINICAL HISTORY: 22 years old, female; Signs and symptoms; Other: Double vision TECHNIQUE: Axial computed tomography images of the head/brain without intravenous contrast. All CT scans at this facility use at least one of these dose optimization techniques: automated exposure control; mA and/or kV adjustment per patient size (includes targeted exams where dose is matched to clinical indication); or iterative reconstruction. Coronal and sagittal reformatted images were created and reviewed. COMPARISON: CT HEAD WITHOUT CONTRAST 02/24/2017 1:01 PM FINDINGS: Brain: Unremarkable. No hemorrhage. No significant white matter disease. No edema. Ventricles: No ventriculomegaly. Bones/joints: No acute fracture. Sinuses: No acute sinusitis. Mastoid air cells: Unremarkable. Soft tissues: Unremarkable. IMPRESSION: No acute intracranial abnormality. Dictated and Authenticated by: Galdino Chang MD. Ordering:CHESTER CHAPMAN MD
[2018-04-19 00:19] VITALS: BP 161/92; PULSE 83; RESP 14; TEMP 36.9; O2SAT 96
--- NOTE | 2018-04-19 00:19 | ED.GENADUL_ITS ---
Discharge Plan Disposition Patient Disposition: HOME Condition: Good Discharge Details Chief Complaint: HeadInjury Clinical Impression: Fall, Contusion Reason For Visit: JESSICA Primary Care Provider: Charanjit Maria ED Provider: Prem Moore Home Meds and New Rx's Prescriptions: No Action aripiprazole [Abilify] 5 MG tablet 5 mg PO MO RF: 0 docusate sodium [Colace] 100 MG capsule 100 mg PO BID RF: 0 trazodone 100 mg Tablet 100 mg PO DAILY RF: 0 albuterol sulfate [ProAir HFA] 90 mcg/actuation Hfa Aerosol Inhaler 2 puff Inhalation DAILY RF: 0 PNV cmb#95-ferrous fumarate-FA [] 28 mg iron- 800 mcg Tablet 1 tab PO DAILY RF: 0 metformin 500 mg Tablet 500 mg PO BID RF: 0 sertraline 25 mg Tablet 25 mg PO DAILY RF: 0 Discharge Instructions Instructions: Contusion in Adults (ED) Additional Instructions: Please drink 8-10 cups of water per day. If you notice any worsening of your symptoms, or any new symptoms such as vomiting, diarrhea, fever, chills, shortness of breath, chest pain, numbness, weakness, or fainting , please return immediately to the emergency department for reevaluation. Please follow up with your primary care provider as soon as possible for reassessment and reevaluation. As always, it was a pleasure participating in your medical care today. Referrals: Charanjit Maria [Primary Care Provider] - Medical Decision Making This is a 22-year-old female who presents for a fall. She fell asleep while on the toilet, fell forward and hit the front of her head. She recalls the event, she admits to mild tenderness on the forehead, but shows no signs of trauma or abnormality. Physical exam neurologic exam showed no other abnormalities except as I was leaving the room the patient states that she sees double vision. Double vision is present in both eyes when they are open or one or the other is closed. It is not improved or worsened by any of these maneuvers. The double vision appears to be inconsistent, and she also shows no signs of difficulty typing, speaking, writing, or reading. She is able to read all signs in the room well without any difficulty. In fact when she looks at the words room 8 she says there are two 8 but the word room looks perfectly normal. The remainder of her neurologic exam is completely normal with no other abnormalities. To be perfectly honest her signs and symptoms do not appear to be consistent with what I would expect with a normal acute neurologic issue. We did get a CT scan to rule out any acute process and there is no evidence of tumor, mass, lesion, or other abnormality. Went back and reassessed the patient she stated that I still see double vision but if we wait a few minutes it might get better. We did contact [facility] neurology, and I spoke with a neurologist there discussed the case, physical exam findings and imaging findings. He too feels that the patient's symptoms appear to be slightly inconsistent, and atypical for neurologic lesion. He had no additional recommendations aside for ophthalmology follow-up on an outpatient basis or acute observation here in the ED for resolution of her symptoms. He did not recommend MRI imaging at this time. I went back and reassessed the patient 7 minutes later she stated that the double vision had completely resolved. I feel that the patient fell asleep at her toilet, suffered from a small contusion on her head, and either has an atypical transient neurologic component causing double vision or a potential factitious issue. Regardless with a complete resolution of her symptoms I feel she is safe for discharge home. We discussed red flags which to return the patient understands. I have extensively reviewed the treatment plan and discharge instructions with the patient. I have addressed all patient concerns at this time. The patient was made aware of what symptoms to monitor for that would warrant a return to the emergency department. Discussed the plan with the patient, they demonstrate verbal understanding and agreement with our assessment and plan at this time. EKG 23: 11 Rate 77, intervals normal, sinus rhythm, no ST elevations or depressions, inverted T wave in V1. No Q waves. No epsilon wave, delta wave, or other abnormality. FINDINGS: Brain: Unremarkable. No hemorrhage. No significant white matter disease. No edema. Ventricles: No ventriculomegaly. Bones/joints: No acute fracture. Sinuses: No acute sinusitis. Mastoid air cells: Unremarkable. Soft tissues: Unremarkable. IMPRESSION: No acute intracranial abnormality. HPI General Date/Time Provider Initiated Documentation: 04/18/18 23:07 . HPI Narrative: This is a 22-year-old -[place] female with a past medical history of schizophrenia, diabetes, and asthma who presents today for evaluation of a fall. Patient states that she was urinating on the toilet when she fell asleep. She is unsure if she passed out or not but she says she often falls asleep while on the toilet. Unfortunately for her she then fell forward and hit her forehead on the ground. Patient states that she woke up immediately when she hit the ground, and remembers the event. since then she has had mild pain on the front of her head, but denies any other pain. She denies any headache, chest pain, shortness of breath, arm or neck pain, back pain. Patient initially denied any vision changes, and as I was walking out the room she said that she thinks she may have double vision now. She says that it is in both eyes. Improved by nothing, made worse by nothing. She denies any other associated symptoms. Patient denies any other complaints at this time. Related Data Home Medications Medication Instructions Recorded Confirmed docusate sodium [Colace] 100 mg PO BID 03/22/17 04/18/18 aripiprazole [Abilify] 5 mg PO MO tab-cap 09/29/17 04/18/18 albuterol sulfate [ProAir HFA] 2 puff INHALATION DAILY 03/18/18 04/18/18 trazodone 100 mg PO DAILY 03/18/18 04/18/18 PNV cmb#95-ferrous fumarate-FA 1 tab PO DAILY 04/04/18 04/18/18 [] metformin 500 mg PO BID 04/17/18 04/18/18 sertraline 25 mg PO DAILY 04/17/18 04/18/18 Allergies Allergy/AdvReac Type Severity Reaction Status Date / Time Penicillins Allergy Unknown Unverified 04/17/18 09:27 aspirin AdvReac Severe Wheezing Unverified 04/17/18 09:27 General Stated Complaint: HeadInjury JAMES: 3 Review of Systems Review of Systems All systems reviewed & are unremarkable except as noted in HPI and below Exam Narrative Exam Narrative: 1.Const: Well-nourished, Well-developed, appearing stated age 2.Eyes: PERRL, no conjunctival injection, and symmetrical lids. Patient subjectively says that she sees double of everything. However this is inconsistent, and depending on how many fingers I hold up she sees either the same amount, double, or even sometimes triple the amount. Patient's findings are consistent no matter which eye is covered. She sees double vision in the left eye and the right eye. She is able to read things on the wall, and on the computer screen well without difficulty. She is able to type well without significant difficulty. There is no evidence of raccoon eyes, velazquez sign, CSF rhinorrhea, mastoid tenderness, cranial crepitus, hemotympanum, exophthalmos, or hyphema. Patient demonstrates intact dentition with no signs of tooth avulsion or fracture, no signs of jaw deformity, no evidence of a LeFort's fracture, with an intact palate, nose and orbital region. There is no evidence of a nasal septal hematoma. No proptosis. Jaw closes symmetrically. Airway is clear. 3.ENT: Atraumatic external nose and ears. Moist MM. Neck: Symmetric, trachea midline, No thyromegaly. 4.CVS: +S1/S2, No murmurs or gallops. Peripheral pulses 2+ and equal in all extremities. Brisk capillary refill in all extremities. 5.RESP: Unlabored respiratory effort. Clear to auscultation bilaterally. No wheezes rales or rhonchi 6.GI: Soft, Nontender/Nondistended, No hepatosplenomegaly. No guarding or rebound. 7.MSK: Normocephalic/Atraumatic, Extremities w/o deformity or ttp No cyanosis or clubbing, Normal movement of all extremities no midline tenderness to palpation over the CTLS spine. Normal ROM in flexion, extension, side bend, and rotation. Patient has +5 out of 5 strength in the lower extremities in dorsiflexion and plantarflexion, knee flexion and extension, hip flexion and extension. There is +2 over 2 dorsalis pedis pulses bilaterally. There is normal sensation to the skin with light touch at the foot, knee, and hip. Normal saddle sensation. Good sensation over the deep sural nerve area bilaterally. Rectal exam deferred. Reflexes are +2 over 4 in the patellar reflex bilaterally. +5 out of 5 strength in the medial, ulnar, radial nerve distribution bilaterally in the hands as well as intact light touch sensation to these dermatomes on the hands 8.Skin: Warm, Dry. No rashes or lesions. 9.Neuro: torch solderer II-XII grossly intact. Sensation grossly intact, no focal neurologic deficits. All 6 cardinal planes of vision are fully intact. No evidence of rotatory or vertical nystagmus. The patient demonstrated a normal [id number], good dexterity. There was no evidence of dysdiadochokinesia. Patient was able to ambulate without difficulty. There was no wide-based gait. Romberg, and rzcs-hu-fyts are both normal on testing. Sensation was intact bilaterally as well as muscle strength bilaterally for all extremities. Patient was able to verbalize butter cup with no slurring, or miss pronunciation. Cerebellar function testing is normal. The patient demonstrates a normal hints exam with no findings concerning for a central event. No vertical nystagmus. The head impulse test is negative for any significant central abnormality. Normal test of skew. No suggestion of a central cerebellar event. 10.Psych: (AAO) x3. Appropriate mood and affect Course Vital Signs Temperature 36.4 C L 04/18/18 23:07 Pulse 88 04/18/18 23:07 Respiratory Rate 16 04/18/18 23:07 Blood Pressure 159/96 H 04/18/18 23:07 Pulse Oximetry 97 04/18/18 23:07 Temperature 36.4 C L 04/18/18 23:07 Temperature Source Skin 04/18/18 23:07 Pulse 88 04/18/18 23:07 Respiratory Rate 16 04/18/18 23:07 Respiratory Effort 04/18/18 23:31 Respiratory Depth Normal 04/18/18 23:31 Respiratory Pattern Normal 04/18/18 23:31 Blood Pressure 159/96 H 04/18/18 23:07 Blood Pressure Position Sitting 04/18/18 23:07 Pulse Oximetry 97 04/18/18 23:07 Oxygen Delivery Method Room Air 04/18/18 23:07 Oxygen Flow Rate 0 04/18/18 23:07
== END 2018-04-19 00:32 | disposition home or self-care (01) ==
LOC: ER 04-19 00:24
PROVIDERS: Emergency Provider Student in an Organized Health Care Education/Training Program; PCP Specialist/Technologist Athletic Trainer
DX: S00.83XA Contusion of other part of head, initial encounter (principal); H53.2 Diplopia; W18.12XA Fall from or off toilet with subsequent striking against object, initial encounter; E11.9 Type 2 diabetes mellitus without complications; Z79.84 Long term (current) use of oral hypoglycemic drugs
CPT/HCPCS: 93005; 99284; 70450; 93010

== ENCOUNTER 2018-04-27 18:30 | Emergency (ER) | payer MEDICAID, SELFPAY ==
[2018-04-27 18:31] VITALS: BP 154/76; PULSE 93; RESP 16; TEMP 36; O2SAT 96
--- NOTE | 2018-04-27 18:45 | DI.RAD_ITS ---
SYMPTOM/DIAGNOSIS: LUQ ABD PAIN PA CHEST, FLAT AND UPRIGHT ABDOMEN: The exam is somewhat limited by patient body habitus. The heart size is normal. The lungs are clear. No free air is visible. There are no dilated bowel loops or air fluid levels. IMPRESSION: Somewhat limited exam. No acute abnormality.
[2018-04-27 18:46] LABS: Bilirubin Negative (Negative); Blood Trace-lysed (Negative); Clarity Cloudy; Glucose Negative (Negative); Ketones Trace mg/dL (Negative); Leukocyte Esterase Negative (Negative); Nitrite Negative (Negative); Specific Gravity 1.025 (1.005-1.025); Urobilinogen 0.2 EU/dL (Up TO 0.2)
--- NOTE | 2018-04-27 18:56 | ED.GENADUL_ITS ---
Discharge Plan Disposition Patient Disposition: HOME Condition: Improving Discharge Details Chief Complaint: Abd Prob Clinical Impression: Abdominal wall pain in left upper quadrant Primary Care Provider: Charanjit Maria ED Provider: Jesus Flynn Home Meds and New Rx's Prescriptions: Continue aripiprazole [Abilify] 5 MG tablet 5 mg PO MO RF: 0 docusate sodium [Colace] 100 MG capsule 100 mg PO BID RF: 0 trazodone 100 mg Tablet 100 mg PO DAILY RF: 0 albuterol sulfate [ProAir HFA] 90 mcg/actuation Hfa Aerosol Inhaler 2 puff Inhalation DAILY RF: 0 PNV cmb#95-ferrous fumarate-FA [] 28 mg iron- 800 mcg Tablet 1 tab PO DAILY RF: 0 metformin 500 mg Tablet 500 mg PO BID RF: 0 sertraline 25 mg Tablet 25 mg PO DAILY RF: 0 Discharge Instructions Instructions: Abdominal Pain (ED) Additional Instructions: Please continue to eat and drink appropriate meals and take [id number] acetaminophen or Motrin as needed for discomfort. Just take as directed on packaging. Return immediately to the emergency department for any new or significant worsening of your symptoms otherwise follow-up with your primary care provider preferably in the next week for reexamination. Please mention to them that your liver function tests have been slowly elevating over the past couple of emergency department visits. Patient is medically cleared to return to the care bed Referrals: Charanjit Maria [Primary Care Provider] - 1 week Medical Decision Making Patient presenting to the emergency department for chief complaint of abdominal pain. Patient states that this pain started yesterday evening and has been persistent. She states that she is at the care bed and has otherwise been doing fine. She states that this pain was not associated with any injury or trauma, food intake, nausea vomiting diarrhea or constipation. Physical exam shows tenderness to the left upper quadrant but of notation is tenderness is even present with light palpation of the surface. Patient is obese making it difficult to differentiate soft tissue injury versus intra-abdominal injury but I highly suspect more of soft tissue injury due to superficiality of tenderness. Plan to check labs including lipase CBC and CMP and do plain film imaging of the abdomen and treat discomfort with acetaminophen and lidocaine patch. Reviewed patient's labs which are for the most part nondiagnostic but do show a normal lipase, mild leukocytosis, and elevated LFTs. Patient was reassessed and continues to complain of superficial left-sided abdominal wall pain. Still pending radiological imaging results from radiologist but my review of imaging shows no specific acute findings but difficult to fully view the abdominal cavity due to body habitus. Patient was p.o. challenged pending radiology interpretation. If radiologist agrees with imaging findings plan to discharge patient but I do feel that she needs a follow-up appointment with primary care in the next week given trending upward LFTs. Magnesium came back and is slightly low also patient given magnesium. Patient was reassessed and states that she feels better after having some taylor crackers and jovita armida. She does still have some mild discomfort so patient was given 15 mg of ketorolac otherwise I feel the patient is able to be safely discharged. I did consider CT imaging of the abdomen but with patient just having CT scan 10 days ago and no acute findings noted I do not feel that reimaging is needed given normal lipase along with superficial nature to discomfort. Plain film imaging of the abdomen shows nonobstructive bowel gas pattern and no acute cardial pulmonary findings. Patient encouraged to return immediately for any new or significant worsening of symptoms otherwise patient was placed on care management list to have a follow-up appointment preferably in the next week for increasing LFTs and abdominal pain. After discussion of diagnosis and plan of care patient has no further needs, questions, or concerns and states clear understanding to return to the emergency department for any worsening symptoms. HPI General Mode of arrival: ambulatory . Date/Time Provider Initiated Documentation: 04/27/18 18:33 . Limitations to Documentation: no limitations . Information obtained by: patient, RN notes reviewed and old records reviewed . History of Present Illness 22 year old F presents to the emergency department with the chief complaint of Abd pain, described as moderate, with intensity rated at 9. Quality is described as sharp, and is localized to the abdomen. Patient reports no radiation. Patient started experiencing this day(s) (2) and it has been constant. No relieving factors improve symptom(s), Movement worsens symptoms . Patient notes no other symptoms.. Patient did receive the following treatments prior to arrival, none Related Data Home Medications Medication Instructions Recorded Confirmed docusate sodium [Colace] 100 mg PO BID 03/22/17 04/27/18 aripiprazole [Abilify] 5 mg PO MO tab-cap 09/29/17 04/27/18 albuterol sulfate [ProAir HFA] 2 puff INHALATION DAILY 03/18/18 04/27/18 trazodone 100 mg PO DAILY 03/18/18 04/27/18 PNV cmb#95-ferrous fumarate-FA 1 tab PO DAILY 04/04/18 04/27/18 [] metformin 500 mg PO BID 04/17/18 04/27/18 sertraline 25 mg PO DAILY 04/17/18 04/27/18 Allergies Allergy/AdvReac Type Severity Reaction Status Date / Time Penicillins Allergy Unknown Unverified 04/27/18 18:35 aspirin AdvReac Severe Wheezing Unverified 04/27/18 18:35 General Stated Complaint: Abd Prob JAMES: 3 Review of Systems Constitutional Denies chills, Denies fever(s) and Denies poor appetite Cardiovascular Denies chest pain and Denies dyspnea Respiratory Denies dyspnea Gastrointestinal Reports as per HPI, Reports abdominal pain, Denies melena, Denies change in bowel habits, Denies constipation, Denies diarrhea, Denies nausea and Denies vomiting Genitourinary Denies hematuria, Denies urinary incontinence, Denies urinary hesitancy and Denies urinary urgency Integumentary/Breasts Denies rash PFSH Family History Other Diabetes Essential hypertension Medical History Asthma Insomnia Schizophrenia Social History Smoking/Tobacco Use Status: Current every day Exam Const General: cooperative Orientation: alert, awake and oriented x3 Resp Effort & Inspection: normal respiratory effort and able to speak in complete sentences Auscultation: clear to auscultation bilaterally Cardio Rate: regular rate Rhythm: regular rhythm Heart Sounds: S1 normal and S2 normal GI Inspection: normal to inspection, no abdominal wall ecchymosis, large pannus and obesity Palpation: soft, no hepatosplenomegaly, not firm, no guarding, no masses, no pulsatile masses, not rigid, no splenomegaly and tender in the LLQ (With light touch of the surface); not at McBurney's point, not periumbilically, Torres's sign negative, obturator sign negative, psoas sign negative, with no rebound tenderness and Rovsing's sign negative Auscultation: normal bowel sounds Back/Spine/Pelvis Back: no CVA tenderness Neuro General: alert, awake, oriented x3, gait normal and moves all extremities Course Vital Signs Temperature 36 C L 04/27/18 18:31 Pulse 93 H 04/27/18 18:31 Respiratory Rate 16 04/27/18 18:31 Blood Pressure 154/76 H 04/27/18 18:31 Pulse Oximetry 96 04/27/18 18:31 Temperature 36 C L 04/27/18 18:31 Temperature Source Skin 04/27/18 18:31 Pulse 93 H 04/27/18 18:31 Respiratory Rate 16 04/27/18 18:31 Respiratory Effort Non-Labored 04/27/18 18:31 Blood Pressure 154/76 H 04/27/18 18:31 Pulse Oximetry 96 04/27/18 18:31 Oxygen Delivery Method Room Air 04/27/18 18:31 Oxygen Flow Rate 0 04/27/18 18:31 Pain Level 9 04/27/18 18:31 Lab/Test Results Lab/Test Results: POC- Test(urine) Negative
[2018-04-27] MEDS: Acetaminophen 500 MG TAB 1000 MG PO (18:57)
[2018-04-27] MEDS: Lidocaine 5% Patch 1 PATCH TP (18:57)
[2018-04-27 19:08] LABS: RBC Negative (0-2); WBC Negative HPF (0-5)
[2018-04-27 19:09] LABS: Bacteria Rare HPF (Negative); C & S Indicated? No/Sq. Contamination; Casts Negative LPF (Negative); Crystals Few Amorphous HPF (Negative); Epithelial Cells Many HPF (Negative); Mucus Trace (Negative)
[2018-04-27 19:18] LABS: Abs Immature Grans 0.03 k/cumm (0.0-0.09); Absolute Basophil Count 0.03 k/cumm (0.0-0.2); Absolute Eosinophil Count 0.32 k/cumm (0.0-0.7); Absolute Lymphocyte Count 2.97 k/cumm (1.2-3.4); Absolute Monocyte Count 0.75 k/cumm (0.11-0.7); Absolute Neutrophil Count 8.83 k/cumm (1.2-6.7); Basophils % 0.2; Eosinophils % 2.5; HCT 42.9 % (36.0-46.0); HGB 14.2 g/dL (12.0-15.5); Immature Grans % 0.2; Mean Corp. HGB Concentration 33.1 g/dL (32.0-36.0); Mean Corpuscular Hemoglobin 30.2 pg (27.0-33.0); Mean Corpuscular Volume 91.3 fL (80-95); Mean Platelet Volume 10.8 fL (8.0-11.0); Monocytes % 5.8; Neutrophils % 68.3; Platelet Count 313 x1000/uL (130-400); RBC Distribution Width 13.1 % (11.7-14.6); White Blood Cell Count 12.93 k/cumm (4.4-10.8)
[2018-04-27 19:31] LABS: ALT 159 U/L (12-78); AST 178 U/L (15-37); Albumin 3.5 g/dL (3.4-5.0); Alkaline Phosphatase 77 U/L (46-116); Anion Gap 9.5 mmol/L (3-11); BUN 12 mg/dL (7-18); Bilirubin, Total 0.2 mg/dL (0.2-1.0); CO2 31.5 mmol/L (21.0-32.0); CREATININE 0.86 mg/dL (0.55-1.02); Calcium 9.3 mg/dL (8.5-10.1); Chloride 98 mmol/L (98-107); Glucose 132 mg/dL (70-100); Lipase 100 U/L (73-393); Magnesium 1.7 mg/dL (1.8-2.4); Potassium 4.2 mmol/L (3.5-5.1); Sodium 139 mmol/L (136-145); Total Protein 8.3 g/dL (6.4-8.2)
[2018-04-27 20:11] VITALS: BP 114/62; PULSE 84; RESP 18; TEMP 37; O2SAT 96
--- NOTE | 2018-04-27 20:40 | DI.VRAD_ITS ---
EXAM: XR Abdomen 2 Views with XR Chest 1 View EXAM DATE/TIME: 04/27/2018 6:51 PM CLINICAL HISTORY: 22 years old, female; Pain; Other: Luq; Patient HX: Luq pain, started last night; Additional info: Limited image quality due to patient habitus. TECHNIQUE: XR of the abdomen (2 views) with XR chest (1 view). COMPARISON: No relevant prior studies available. FINDINGS: Lungs: The pulmonary vasculature is within normal limits. No focal pulmonary consolidation. Pleural space: No pneumothorax. No pleural effusion. Heart/Mediastinum: The cardiomediastinal silhouette is within normal limits. Gastrointestinal tract: Nonobstructive bowel gas pattern. Intraperitoneal space: See Soft Tissues Finding. Bones/joints: The sacroiliac joints, pubic symphysis, and hips are intact. The osseous mineralization is normal. No acute fracture or malalignment. There are 5 nonrib-bearing lumbar vertebrae. Soft tissues: The study is limited due to body habitus. On the upright images, there is no evidence of pneumoperitoneum. IMPRESSION: 1. Nonobstructive bowel gas pattern. 2. No acute cardiopulmonary findings. Dictated and Authenticated by: Ashley Mendez MD. Ordering:NORMA PAUL MD
[2018-04-27] MEDS: Magnesium Oxide 400 MG TAB PO (21:19)
[2018-04-27] MEDS: Ketorolac 15 MG/ML VIAL IVP (21:20)
== END 2018-04-27 21:25 | disposition home or self-care (01) ==
LOC: ER 21:09
PROVIDERS: Emergency Provider Nurse Practitioner Family; PCP Specialist/Technologist Athletic Trainer
DX: R10.12 Left upper quadrant pain (principal); R79.89 Other specified abnormal findings of blood chemistry; E83.42 Hypomagnesemia
CPT/HCPCS: 36415; 80053; 81025; 83690; 96374; 99284; 74022; 81003; 81015; 83735; 85025; J1885

== ENCOUNTER 2018-05-07 00:39 | Emergency (ER) | payer MEDICAID, SELFPAY ==
--- NOTE | 2018-05-07 00:42 | W.ED.GENAD ---
Discharge Plan Disposition Patient Disposition: HOME Condition: Good Discharge Details Chief Complaint: PsychEval Clinical Impression: Elevated blood sugar, Suicidal ideation Reason For Visit: JESSICA Primary Care Provider: Charanjit Maria ED Provider: Kenton Ovalle [place] Meds and New Rx's Prescriptions: Continue aripiprazole [Abilify] 5 MG tablet 5 mg PO MO RF: 0 acetaminophen 325 mg Tablet 650 mg PO Q6H PRNRF: 0 polyethylene glycol 3350 [Miralax] 17 gram Powder In Packet 17 g PO DAILY RF: 0 ondansetron HCl 4 mg Tablet 4 mg PO QID PRNRF: 0 clonazepam 0.5 mg Tablet 1 mg PO BID PRNRF: 0 loperamide 2 mg Tablet 2 mg PO Q6H PRN PRNRF: 0 hydralazine 50 mg Tablet 50 mg PO DAILY RF: 0 trazodone 100 mg Tablet 100 mg PO DAILY RF: 0 albuterol sulfate [ProAir HFA] 90 mcg/actuation Hfa Aerosol Inhaler 2 puff Inhalation DAILY RF: 0 metformin 500 mg Tablet 100 mg PO DAILY RF: 0 sertraline 25 mg Tablet 75 mg PO DAILY RF: 0 Discharge Instructions Additional Instructions: Continue your medications including your metformin. Check your blood sugar at least once a day like you have been doing. Follow-up with your rocket test fire worker and stay at the care bed for safety. Return to ED for any worsening suicidal thoughts, feeling unsafe, persistently elevated blood sugar, vomiting, abdominal pain, confusion. Referrals: Charanjit Maria [Primary Care Provider] - Medical Decision Making Will place IV and give a liter of fluid and check a BMP for anion gap and bicarb. Suspect her sugar will be fine after a liter of LR. health care social worker to see the patient but I think ultimately she will will be able to be discharged back to her care bed. Patient's BMP shows a normal anion gap and normal bicarb. Blood sugar only 255 on lab value. Liter of LR was given. Repeat fingerstick was 200. From medical standpoint patient is ready for discharge. Patient was evaluated by a rocket test fire worker. She is not actively suicidal. She is already in a care bed where she will be watched. She is discharged with her rocket test fire worker to be taken back to her care bed. Medical Records Medical records reviewed: Yes I reviewed the patient's medical records. Lab Data Lab results reviewed: Yes I reviewed the patient's lab results. HPI General Mode of arrival: EMS. Date/Time Provider Initiated Documentation: 05/07/18 00:40. Limitations to Documentation: no limitations. Information obtained by: patient and old records reviewed. HPI Narrative: Patient presents to ED by ambulance from a care bed for evaluation of elevated blood sugar and suicidal thoughts. Patient is on metformin. She took it in the morning as usual. She had 2 peanut butter and jelly sandwiches tonight. Blood sugar has been around 300 now. She feels a little bit lightheaded but otherwise has no complaints physically. In regards to her suicidal thoughts she has history of same. She reports having triggers happen today which is making her have these thoughts. She has no specific plan. She cannot elaborate on the thoughts. Her rocket test fire worker had already been contacted and is here in the department to see her. Related Data Home Medications Medication Instructions Recorded Confirmed aripiprazole [Abilify] 5 mg PO MO tab-cap 09/29/17 04/27/18 albuterol sulfate [ProAir HFA] 2 puff INHALATION DAILY 03/18/18 05/07/18 trazodone 100 mg PO DAILY 03/18/18 05/07/18 metformin 100 mg PO DAILY 04/17/18 05/07/18 sertraline 75 mg PO DAILY 04/17/18 05/07/18 acetaminophen 650 mg PO Q6H PRN 05/07/18 05/07/18 clonazepam 1 mg PO BID PRN 05/07/18 05/07/18 hydralazine 50 mg PO DAILY 05/07/18 05/07/18 loperamide 2 mg PO Q6H PRN PRN 05/07/18 05/07/18 ondansetron HCl 4 mg PO QID PRN 05/07/18 05/07/18 polyethylene glycol 3350 [Miralax] 17 g PO DAILY 05/07/18 05/07/18 Allergies Allergy/AdvReac Type Severity Reaction Status Date / Time Penicillins Allergy Unknown Unverified 05/07/18 00:47 aspirin AdvReac Severe Wheezing Unverified 05/07/18 00:47 General JAMES: 3 Review of Systems Constitutional Denies chills, Denies fatigue, Denies fever(s), Denies headache(s), Denies malaise and Denies weakness Eyes Denies change in vision, Denies other visual disturbances and Denies eye pain ENT Denies otalgia, Denies facial pain, Denies headache(s), Denies nasal congestion, Denies sinus pain, Denies sinus pressure and Denies sore throat Cardiovascular Denies chest pain, Denies syncope, Denies pedal edema, Denies edema, Reports lightheadedness, Denies palpitations, Denies dyspnea and Denies dyspnea on exertion Respiratory Denies cough, Denies dyspnea and Denies dyspnea on exertion Gastrointestinal Denies abdominal pain, Denies diarrhea, Denies nausea and Denies vomiting Genitourinary Denies hematuria, Denies dysuria, Denies pelvic pain and Denies flank pain Musculoskeletal Denies numbness Integumentary/Breasts Denies erythema and Denies rash Neurologic Denies abnormal movements, Denies abnormal speech, Denies syncope, Denies headache(s), Denies focal weakness, Denies numbness and Denies weakness Psychiatric Reports anxiety, Denies hallucinations, Denies homicidal ideation and Reports suicidal ideation Endocrine Denies fatigue and Denies palpitations PFSH Asthma Insomnia Schizophrenia Family History Other Diabetes Essential hypertension Social History Smoking/Tobacco Use Status: Current every day Exam Const General: cooperative, comfortable and no acute distress Nutritional Appearance: obese morbidly obese Orientation: alert and oriented x3 HENMT Head: normocephalic and atraumatic Mouth: moist mucous membranes Neck Neck: trachea midline and supple Resp Effort & Inspection: normal respiratory effort Auscultation: clear to auscultation bilaterally Cardio Rate: regular rate Rhythm: regular rhythm Heart Sounds: S1 normal and S2 normal Skin General skin exam: no rashes or lesions noted Neuro General: alert, oriented x3, gait normal, no focal motor deficits, CN's II-XI intact bilaterally and not confused Extrem General: no clubbing, cyanosis or edema Psych Mental Status: mental status grossly normal Speech and Movement: speech and movement normal Mood: congruent mood Affect: normal affect Attitude: cooperative Thought Process: normal Thought Content: suicidality (thoughts at times but not true ideation/plan)
[2018-05-07 00:43] VITALS: BP 155/105; PULSE 81; RESP 18; TEMP 36.3; O2SAT 96
--- NOTE | 2018-05-07 00:48 | ED.GENADUL_ITS ---
Discharge Plan Disposition Patient Disposition: HOME Condition: Good Discharge Details Chief Complaint: PsychEval Clinical Impression: Elevated blood sugar, Suicidal ideation Reason For Visit: JESSICA Primary Care Provider: Charanjit Maria ED Provider: Kenton Ovalle [place] Meds and New Rx's Prescriptions: Continue aripiprazole [Abilify] 5 MG tablet 5 mg PO MO RF: 0 acetaminophen 325 mg Tablet 650 mg PO Q6H PRNRF: 0 polyethylene glycol 3350 [Miralax] 17 gram Powder In Packet 17 g PO DAILY RF: 0 ondansetron HCl 4 mg Tablet 4 mg PO QID PRNRF: 0 clonazepam 0.5 mg Tablet 1 mg PO BID PRNRF: 0 loperamide 2 mg Tablet 2 mg PO Q6H PRN PRNRF: 0 hydralazine 50 mg Tablet 50 mg PO DAILY RF: 0 trazodone 100 mg Tablet 100 mg PO DAILY RF: 0 albuterol sulfate [ProAir HFA] 90 mcg/actuation Hfa Aerosol Inhaler 2 puff Inhalation DAILY RF: 0 metformin 500 mg Tablet 100 mg PO DAILY RF: 0 sertraline 25 mg Tablet 75 mg PO DAILY RF: 0 Discharge Instructions Additional Instructions: Continue your medications including your metformin. Check your blood sugar at least once a day like you have been doing. Follow-up with your beater worker helper and stay at the care bed for safety. Return to ED for any worsening suicidal thoughts, feeling unsafe, persistently elevated blood sugar, vomiting, abdominal pain, confusion. Referrals: Charanjit Maria [Primary Care Provider] - Medical Decision Making Will place IV and give a liter of fluid and check a BMP for anion gap and bicarb. Suspect her sugar will be fine after a liter of LR. livestock farmworker to see the patient but I think ultimately she will will be able to be discharged back to her care bed. Patient's BMP shows a normal anion gap and normal bicarb. Blood sugar only 255 on lab value. Liter of LR was given. Repeat fingerstick was 200. From medical standpoint patient is ready for discharge. Patient was evaluated by a beater worker helper. She is not actively suicidal. She is already in a care bed where she will be watched. She is discharged with her beater worker helper to be taken back to her care bed. Medical Records Medical records reviewed: Yes I reviewed the patient's medical records. Lab Data Lab results reviewed: Yes I reviewed the patient's lab results. HPI General Mode of arrival: EMS . Date/Time Provider Initiated Documentation: 05/07/18 00:40 . Limitations to Documentation: no limitations . Information obtained by: patient and old records reviewed . HPI Narrative: Patient presents to ED by ambulance from a care bed for evaluation of elevated blood sugar and suicidal thoughts. Patient is on metformin. She took it in the morning as usual. She had 2 peanut butter and jelly sandwiches tonight. Blood sugar has been around 300 now. She feels a little bit lightheaded but otherwise has no complaints physically. In regards to her suicidal thoughts she has history of same. She reports having triggers happen today which is making her have these thoughts. She has no specific plan. She cannot elaborate on the thoughts. Her beater worker helper had already been contacted and is here in the department to see her. Related Data Home Medications Medication Instructions Recorded Confirmed aripiprazole [Abilify] 5 mg PO MO tab-cap 09/29/17 04/27/18 albuterol sulfate [ProAir HFA] 2 puff INHALATION DAILY 03/18/18 05/07/18 trazodone 100 mg PO DAILY 03/18/18 05/07/18 metformin 100 mg PO DAILY 04/17/18 05/07/18 sertraline 75 mg PO DAILY 04/17/18 05/07/18 acetaminophen 650 mg PO Q6H PRN 05/07/18 05/07/18 clonazepam 1 mg PO BID PRN 05/07/18 05/07/18 hydralazine 50 mg PO DAILY 05/07/18 05/07/18 loperamide 2 mg PO Q6H PRN PRN 05/07/18 05/07/18 ondansetron HCl 4 mg PO QID PRN 05/07/18 05/07/18 polyethylene glycol 3350 [Miralax] 17 g PO DAILY 05/07/18 05/07/18 Allergies Allergy/AdvReac Type Severity Reaction Status Date / Time Penicillins Allergy Unknown Unverified 05/07/18 00:47 aspirin AdvReac Severe Wheezing Unverified 05/07/18 00:47 General JAMES: 3 Review of Systems Constitutional Denies chills, Denies fatigue, Denies fever(s), Denies headache(s), Denies malaise and Denies weakness Eyes Denies change in vision, Denies other visual disturbances and Denies eye pain ENT Denies otalgia, Denies facial pain, Denies headache(s), Denies nasal congestion , Denies sinus pain, Denies sinus pressure and Denies sore throat Cardiovascular Denies chest pain, Denies syncope, Denies pedal edema, Denies edema, Reports lightheadedness, Denies palpitations, Denies dyspnea and Denies dyspnea on exertion Respiratory Denies cough, Denies dyspnea and Denies dyspnea on exertion Gastrointestinal Denies abdominal pain, Denies diarrhea, Denies nausea and Denies vomiting Genitourinary Denies hematuria, Denies dysuria, Denies pelvic pain and Denies flank pain Musculoskeletal Denies numbness Integumentary/Breasts Denies erythema and Denies rash Neurologic Denies abnormal movements, Denies abnormal speech, Denies syncope, Denies headache(s), Denies focal weakness, Denies numbness and Denies weakness Psychiatric Reports anxiety, Denies hallucinations, Denies homicidal ideation and Reports suicidal ideation Endocrine Denies fatigue and Denies palpitations PFSH Asthma Insomnia Schizophrenia Family History Other Diabetes Essential hypertension Social History Smoking/Tobacco Use Status: Current every day Exam Const General: cooperative, comfortable and no acute distress Nutritional Appearance: obese morbidly obese Orientation: alert and oriented x3 HENMT Head: normocephalic and atraumatic Mouth: moist mucous membranes Neck Neck: trachea midline and supple Resp Effort & Inspection: normal respiratory effort Auscultation: clear to auscultation bilaterally Cardio Rate: regular rate Rhythm: regular rhythm Heart Sounds: S1 normal and S2 normal Skin General skin exam: no rashes or lesions noted Neuro General: alert, oriented x3, gait normal, no focal motor deficits, CN's II-XI intact bilaterally and not confused Extrem General: no clubbing, cyanosis or edema Psych Mental Status: mental status grossly normal Speech and Movement: speech and movement normal Mood: congruent mood Affect: normal affect Attitude: cooperative Thought Process: normal Thought Content: suicidality (thoughts at times but not true ideation/plan)
--- NOTE | 2018-05-07 01:09 | PDOC.MHCN ---
Date of service: 05/07/18 Time of Service: 01:09 Mental Health Crisis Note Presenting Issue How did you arrive at the ED and why did you come: Client arrived via ambulance due to high blood sugar and SI. Precipitating Factors Client is experiencing SI but has no plan. Denies HI. Client has been staying at the CARE Bed through [facility]. Client stated she was triggered earlier in the day by a board game. Disposition BEHAVIOR: Appropriate EYE CONTACT: Good MOOD: Pleasant and cooperative AFFECT: Engaged and animated APPETITE: Good SLEEP(trouble falling/staying asleep: No trouble sleeping Plan Client agrees to stay safe tonight. The Plan is to return to the CARE Bed after fluids have been administered to help regulate her blood sugar. Stephania Valentine, POSSUM TRAPPER Coat Finisher to transport .
[2018-05-07] MEDS: Lactated Ringers 1,000 ML 1000 ML IV (01:13)
--- NOTE | 2018-05-07 01:15 | PDOC.MHCN_ITS ---
Date of service: 05/07/18 Time of Service: 01:09 Mental Health Crisis Note Presenting Issue How did you arrive at the ED and why did you come: Client arrived via ambulance due to high blood sugar and SI. Precipitating Factors Client is experiencing SI but has no plan. Denies HI. Client has been staying at the CARE Bed through [facility]. Client stated she was triggered earlier in the day by a board game. Disposition BEHAVIOR: Appropriate EYE CONTACT: Good MOOD: Pleasant and cooperative AFFECT: Engaged and animated APPETITE: Good SLEEP(trouble falling/staying asleep: No trouble sleeping Plan Client agrees to stay safe tonight. The Plan is to return to the CARE Bed after fluids have been administered to help regulate her blood sugar. Stephania Valentine, TELLER COORDINATOR Seed Core Operator to transport .
[2018-05-07 01:27] LABS: Anion Gap 7.3 mmol/L (3-11); BUN 14 mg/dL (7-18); CO2 27.7 mmol/L (21.0-32.0); CREATININE 0.71 mg/dL (0.55-1.02); Calcium 8.8 mg/dL (8.5-10.1); Chloride 98 mmol/L (98-107); Glucose 255 mg/dL (70-100); Potassium 3.7 mmol/L (3.5-5.1); Sodium 133 mmol/L (136-145)
[2018-05-07 02:41] VITALS: BP 150/96; PULSE 71; RESP 18; TEMP 36.5; O2SAT 96
== END 2018-05-07 02:40 | disposition home or self-care (01) ==
PROVIDERS: Emergency Provider Emergency Medicine; PCP Specialist/Technologist Athletic Trainer
DX: E11.65 Type 2 diabetes mellitus with hyperglycemia (principal); Z79.84 Long term (current) use of oral hypoglycemic drugs; R45.851 Suicidal ideations
CPT/HCPCS: 36415; 36416; 80048; 82962; 96360; 99284

== ENCOUNTER 2018-05-10 19:58 | Emergency (ER) | payer MEDICAID, SELFPAY ==
[2018-05-10 20:02] VITALS: BP 145/86; PULSE 88; RESP 24; TEMP 36.6; O2SAT 94
[2018-05-10 20:10] VITALS: RESP 24
--- NOTE | 2018-05-10 20:20 | W.ED.GENAD ---
Discharge Plan Disposition Patient Disposition: OTHER Condition: Good Discharge Details Chief Complaint: Chest Pain Clinical Impression: Asthma exacerbation, Chest pain Reason For Visit: MAMADOU Primary Care Provider: Charanjit Maria ED Provider: Kenton Ovalle [facility] Meds and New Rx's Prescriptions: Continue aripiprazole [Abilify] 5 MG tablet 5 mg PO MO RF: 0 acetaminophen 325 mg Tablet 650 mg PO PRNRF: 0 polyethylene glycol 3350 [Miralax] 17 gram Powder In Packet 17 g PO PRN PRNRF: 0 hydralazine 50 mg Tablet 50 mg PO DAILY RF: 0 trazodone 100 mg Tablet 100 mg PO DAILY RF: 0 metformin 500 mg Tablet 100 mg PO DAILY RF: 0 sertraline 25 mg Tablet 75 mg PO DAILY RF: 0 Changed albuterol sulfate [ProAir HFA] 90 mcg/actuation Hfa Aerosol Inhaler 2 puff Inhalation Q4H PRN PRNQty: 8.5 RF: 0 Discharge Instructions Instructions: Chest Pain (ED), Asthma (ED) Additional Instructions: Return to care bed. Continue current medications. Use the inhaler provided with the spacer for future difficulty breathing and wheezing. Follow-up with primary care next week. Return to ED for increased difficulty breathing, fever, worsening/new chest pain, other concerns. Referrals: Charanjit Maria [Primary Care Provider] - Medical Decision Making Patient here with complaint of chest pain and shortness of breath. Chest pain is completely reproducible. She does have some expiratory wheezing and does not have her inhaler. Her EKG is sinus rhythm and normal. I am not overly concerned with the chest pain. I think it probably all musculoskeletal. She is however morbidly obese with family history of cardiac disease and diabetes. Her heart score assuming she has a normal troponin will be 2. We will plan a q3 troponin and if negative will have follow-up as outpatient. Will get chest x-ray. She PERCs out and is not having anything suggestive of PE. Will give Toradol for chest pain. Will give DuoNeb for wheezing. Patient's laboratory studies are unremarkable. First troponin negative. Chest x-ray normal. Her breathing is much better after DuoNeb. She was late in getting Toradol so we will have to reevaluate chest pain after that. Second troponin due at 12:30 in the morning. If negative will plan discharge back to care bed with albuterol inhaler. Patient feels better after Toradol. Second troponin remains negative. Repeat EKG is unchanged. Patient to be discharged back to care bed with an inhaler for future use. Medical Records Medical records reviewed: Yes I reviewed the patient's medical records. Lab Data Lab results reviewed: Yes I reviewed the patient's lab results. ECG Data Attestation: I personally reviewed and interpreted this ECG (s) as follows: Interpretation: #1 - Normal sinus rhythm at a rate of 77. Normal axis and intervals. Normal ST. #2 -Sinus rhythm at 69. Normal axis and interval. Unchanged from earlier. HPI General Mode of arrival: EMS. Date/Time Provider Initiated Documentation: 05/10/18 20:18. Limitations to Documentation: no limitations. Information obtained by: patient. HPI Narrative: Patient here from care bed for evaluation of difficulty breathing and chest pain. Patient states symptoms started about an hour prior to arrival. She thinks it is just her asthma but she does not have her pump. However, the chest pain is something she has not previously had with asthma. It is sharp and in the center of the chest in the sternal area. Somewhat pleuritic. Does not seem to radiate anywhere. She started coughing when she started having difficulty breathing but not prior to that. She has not had fever or URI symptoms. She has some nausea but no abdominal pain. She has had no vomiting. She had no lightheadedness or diaphoresis. EMS was called and she is transported up here for evaluation. She did not receive treatment in route she is only [address] hospital. Related Data Home Medications Medication Instructions Recorded Confirmed aripiprazole [Abilify] 5 mg PO MO tab-cap 09/29/17 05/10/18 trazodone 100 mg PO DAILY 03/18/18 05/10/18 metformin 100 mg PO DAILY 04/17/18 05/10/18 sertraline 75 mg PO DAILY 04/17/18 05/10/18 acetaminophen 650 mg PO PRN 05/07/18 05/07/18 hydralazine 50 mg PO DAILY 05/07/18 05/07/18 polyethylene glycol 3350 [Miralax] 17 g PO PRN PRN 05/07/18 05/10/18 albuterol sulfate [ProAir HFA] 2 puff INHALATION Q4H PRN PRN #8.5 05/11/18 05/10/18 g Previous Rx's Medication Instructions Recorded albuterol sulfate [ProAir HFA] 2 puff INHALATION Q4H PRN PRN #8.5 05/11/18 g Allergies Allergy/AdvReac Type Severity Reaction Status Date / Time Penicillins Allergy Unknown Unverified 05/10/18 20:52 aspirin AdvReac Severe Wheezing Unverified 05/10/18 20:52 General Stated Complaint: Chest Pain JAMES: 3 Review of Systems Constitutional Denies chills, Denies excessive sweating, Denies fever(s), Denies headache(s), Denies malaise and Denies weakness Eyes Denies eye discharge and Denies eye pain ENT Denies otalgia, Denies facial pain, Denies headache(s), Denies nasal congestion, Denies neck pain and Denies sore throat Cardiovascular Reports chest pain, Denies diaphoresis, Denies syncope, Denies rapid heart rate and Reports dyspnea Respiratory Reports cough, Reports dyspnea and Reports wheezing Gastrointestinal Denies abdominal pain, Denies diarrhea, Reports nausea and Denies vomiting Genitourinary Denies hematuria, Denies dysuria, Denies pelvic pain and Denies flank pain Musculoskeletal Denies back pain, Denies neck pain, Denies numbness and Denies tingling Integumentary/Breasts Denies rash Neurologic Denies confusion, Denies syncope, Denies headache(s), Denies numbness, Denies tingling and Denies weakness Psychiatric Denies confusion Endocrine Denies excessive sweating Allergic/Immunologic Reports wheezing PFSH Diabetes mellitus (Chronic) Asthma Insomnia Schizophrenia Family History Other Diabetes Essential hypertension Social History Smoking/Tobacco Use Status: Current every day Exam Const General: cooperative and comfortable Nutritional Appearance: obese morbidly obese Orientation: alert and oriented x3 HENMT Head: normocephalic and atraumatic Mouth: moist mucous membranes Neck Neck: normal visual inspection, trachea midline and supple Chest Chest: tenderness costochondral junction Resp Effort & Inspection: normal respiratory effort and not tachypneic Auscultation: wheezes expiratory wheezes and scattered wheezes Cardio Rate: regular rate Rhythm: regular rhythm Heart Sounds: S1 normal and S2 normal GI Palpation: soft, not firm, no guarding and nontender Back/Spine/Pelvis Thoracic/Lumbar Spine: thoracic and lumbar spine normal to inspection and thoraco-lumbar ROM normal Skin Rashes: no rashes Neuro General: alert, oriented x3, moves all extremities and normal light touch, pain and propioception Extrem General: no clubbing, cyanosis or edema and no calf tenderness Course Vital Signs Temperature 97.9 F 05/10/18 20:02 Pulse 88 05/10/18 20:02 Respiratory Rate 24 05/10/18 20:02 Blood Pressure 145/86 H 05/10/18 20:02 Pulse Oximetry 94 L 05/10/18 20:02 Temperature 97.9 F 05/10/18 20:02 Temperature Source Temporal Artery Scan 05/10/18 20:02 Pulse 88 05/10/18 20:02 Respiratory Rate 24 05/10/18 20:02 Blood Pressure 145/86 H 05/10/18 20:02 Blood Pressure Position Sitting 05/10/18 20:02 Pulse Oximetry 94 L 05/10/18 20:02 Oxygen Delivery Method Room Air 05/10/18 20:02 Oxygen Flow Rate 0 05/10/18 20:02 Pain Level 8 05/10/18 20:02
--- NOTE | 2018-05-10 20:31 | ED.GENADUL_ITS ---
Discharge Plan Disposition Patient Disposition: OTHER Condition: Good Discharge Details Chief Complaint: Chest Pain Clinical Impression: Asthma exacerbation, Chest pain Reason For Visit: MAMADOU Primary Care Provider: Charanjit Maria ED Provider: Kenton Ovalle [place] Meds and New Rx's Prescriptions: Continue aripiprazole [Abilify] 5 MG tablet 5 mg PO MO RF: 0 acetaminophen 325 mg Tablet 650 mg PO PRNRF: 0 polyethylene glycol 3350 [Miralax] 17 gram Powder In Packet 17 g PO PRN PRNRF: 0 hydralazine 50 mg Tablet 50 mg PO DAILY RF: 0 trazodone 100 mg Tablet 100 mg PO DAILY RF: 0 metformin 500 mg Tablet 100 mg PO DAILY RF: 0 sertraline 25 mg Tablet 75 mg PO DAILY RF: 0 Changed albuterol sulfate [ProAir HFA] 90 mcg/actuation Hfa Aerosol Inhaler 2 puff Inhalation Q4H PRN PRNQty: 8.5 RF: 0 Discharge Instructions Instructions: Chest Pain (ED), Asthma (ED) Additional Instructions: Return to care bed. Continue current medications. Use the inhaler provided with the spacer for future difficulty breathing and wheezing. Follow-up with primary care next week. Return to ED for increased difficulty breathing, fever , worsening/new chest pain, other concerns. Referrals: Charanjit Maria [Primary Care Provider] - Medical Decision Making Patient here with complaint of chest pain and shortness of breath. Chest pain is completely reproducible. She does have some expiratory wheezing and does not have her inhaler. Her EKG is sinus rhythm and normal. I am not overly concerned with the chest pain. I think it probably all musculoskeletal. She is however morbidly obese with family history of cardiac disease and diabetes. Her heart score assuming she has a normal troponin will be 2. We will plan a q3 troponin and if negative will have follow-up as outpatient. Will get chest x -ray. She PERCs out and is not having anything suggestive of PE. Will give Toradol for chest pain. Will give DuoNeb for wheezing. Patient's laboratory studies are unremarkable. First troponin negative. Chest x-ray normal. Her breathing is much better after DuoNeb. She was late in getting Toradol so we will have to reevaluate chest pain after that. Second troponin due at 12:30 in the morning. If negative will plan discharge back to care bed with albuterol inhaler. Patient feels better after Toradol. Second troponin remains negative. Repeat EKG is unchanged. Patient to be discharged back to care bed with an inhaler for future use. Medical Records Medical records reviewed: Yes I reviewed the patient's medical records. Lab Data Lab results reviewed: Yes I reviewed the patient's lab results. ECG Data Attestation: I personally reviewed and interpreted this ECG (s) as follows: Interpretation: #1 - Normal sinus rhythm at a rate of 77. Normal axis and intervals. Normal ST. #2 -Sinus rhythm at 69. Normal axis and interval. Unchanged from earlier. HPI General Mode of arrival: EMS . Date/Time Provider Initiated Documentation: 05/10/18 20:18 . Limitations to Documentation: no limitations . Information obtained by: patient . HPI Narrative: Patient here from care bed for evaluation of difficulty breathing and chest pain. Patient states symptoms started about an hour prior to arrival. She thinks it is just her asthma but she does not have her pump. However, the chest pain is something she has not previously had with asthma. It is sharp and in the center of the chest in the sternal area. Somewhat pleuritic. Does not seem to radiate anywhere. She started coughing when she started having difficulty breathing but not prior to that. She has not had fever or URI symptoms. She has some nausea but no abdominal pain. She has had no vomiting. She had no lightheadedness or diaphoresis. EMS was called and she is transported up here for evaluation. She did not receive treatment in route she is only [address]. Related Data Home Medications Medication Instructions Recorded Confirmed aripiprazole [Abilify] 5 mg PO MO tab-cap 09/29/17 05/10/18 trazodone 100 mg PO DAILY 03/18/18 05/10/18 metformin 100 mg PO DAILY 04/17/18 05/10/18 sertraline 75 mg PO DAILY 04/17/18 05/10/18 acetaminophen 650 mg PO PRN 05/07/18 05/07/18 hydralazine 50 mg PO DAILY 05/07/18 05/07/18 polyethylene glycol 3350 [Miralax] 17 g PO PRN PRN 05/07/18 05/10/18 albuterol sulfate [ProAir HFA] 2 puff INHALATION Q4H PRN PRN #8.5 05/11/1805/10 g Previous Rx's Medication Instructions Recorded albuterol sulfate [ProAir HFA] 2 puff INHALATION Q4H PRN PRN #8.5 05/11/18 g Allergies Allergy/AdvReac Type Severity Reaction Status Date / Time Penicillins Allergy Unknown Unverified 05/10/18 20:52 aspirin AdvReac Severe Wheezing Unverified 05/10/18 20:52 General Stated Complaint: Chest Pain JAMES: 3 Review of Systems Constitutional Denies chills, Denies excessive sweating, Denies fever(s), Denies headache(s), Denies malaise and Denies weakness Eyes Denies eye discharge and Denies eye pain ENT Denies otalgia, Denies facial pain, Denies headache(s), Denies nasal congestion , Denies neck pain and Denies sore throat Cardiovascular Reports chest pain, Denies diaphoresis, Denies syncope, Denies rapid heart rate and Reports dyspnea Respiratory Reports cough, Reports dyspnea and Reports wheezing Gastrointestinal Denies abdominal pain, Denies diarrhea, Reports nausea and Denies vomiting Genitourinary Denies hematuria, Denies dysuria, Denies pelvic pain and Denies flank pain Musculoskeletal Denies back pain, Denies neck pain, Denies numbness and Denies tingling Integumentary/Breasts Denies rash Neurologic Denies confusion, Denies syncope, Denies headache(s), Denies numbness, Denies tingling and Denies weakness Psychiatric Denies confusion Endocrine Denies excessive sweating Allergic/Immunologic Reports wheezing PFSH Diabetes mellitus (Chronic) Asthma Insomnia Schizophrenia Family History Other Diabetes Essential hypertension Social History Smoking/Tobacco Use Status: Current every day Exam Const General: cooperative and comfortable Nutritional Appearance: obese morbidly obese Orientation: alert and oriented x3 HENMT Head: normocephalic and atraumatic Mouth: moist mucous membranes Neck Neck: normal visual inspection, trachea midline and supple Chest Chest: tenderness costochondral junction Resp Effort & Inspection: normal respiratory effort and not tachypneic Auscultation: wheezes expiratory wheezes and scattered wheezes Cardio Rate: regular rate Rhythm: regular rhythm Heart Sounds: S1 normal and S2 normal GI Palpation: soft, not firm, no guarding and nontender Back/Spine/Pelvis Thoracic/Lumbar Spine: thoracic and lumbar spine normal to inspection and thoraco-lumbar ROM normal Skin Rashes: no rashes Neuro General: alert, oriented x3, moves all extremities and normal light touch, pain and propioception Extrem General: no clubbing, cyanosis or edema and no calf tenderness Course Vital Signs Temperature 97.9 F 05/10/18 20:02 Pulse 88 05/10/18 20:02 Respiratory Rate 24 05/10/18 20:02 Blood Pressure 145/86 H 05/10/18 20:02 Pulse Oximetry 94 L 05/10/18 20:02 Temperature 97.9 F 05/10/18 20:02 Temperature Source Temporal Artery Scan 05/10/18 20:02 Pulse 88 05/10/18 20:02 Respiratory Rate 24 05/10/18 20:02 Blood Pressure 145/86 H 05/10/18 20:02 Blood Pressure Position Sitting 05/10/18 20:02 Pulse Oximetry 94 L 05/10/18 20:02 Oxygen Delivery Method Room Air 05/10/18 20:02 Oxygen Flow Rate 0 05/10/18 20:02 Pain Level 8 05/10/18 20:02
--- NOTE | 2018-05-10 20:34 | DI.RAD_ITS ---
SYMPTOM/DIAGNOSIS: CHEST PAIN/SHORTNESS OF BREATH PA AND LATERAL CHEST: The exam is somewhat limited by the patient's body habitus. Heart size is normal. The lungs are clear. There is a chronic deformity at the distal clavicle. IMPRESSION: Negative chest x-ray.
[2018-05-10 21:17] VITALS: RESP 24; RESP 8; O2SAT 96
[2018-05-10] MEDS: Albuterol/Ipratropium 3 ML UPD VIAL UPD (21:17)
[2018-05-10 21:34] LABS: Abs Immature Grans 0.04 k/cumm (0.0-0.09); Absolute Basophil Count 0.03 k/cumm (0.0-0.2); Absolute Eosinophil Count 0.32 k/cumm (0.0-0.7); Absolute Lymphocyte Count 3.22 k/cumm (1.2-3.4); Absolute Neutrophil Count 9.52 k/cumm (1.2-6.7); Basophils % 0.2; Eosinophils % 2.3; HCT 41.3 % (36.0-46.0); HGB 13.8 g/dL (12.0-15.5); Immature Grans % 0.3; Lymphocytes % 23.1; Mean Corp. HGB Concentration 33.4 g/dL (32.0-36.0); Mean Corpuscular Hemoglobin 30.8 pg (27.0-33.0); Mean Corpuscular Volume 92.2 fL (80-95); Mean Platelet Volume 10.8 fL (8.0-11.0); Monocytes % 5.9; Neutrophils % 68.2; Platelet Count 300 x1000/uL (130-400); RBC 4.48 m/cumm (4.00-5.20); RBC Distribution Width 13.3 % (11.7-14.6); White Blood Cell Count 13.96 k/cumm (4.4-10.8)
[2018-05-10 21:37] LABS: Absolute Monocyte Count 0.82 k/cumm (0.11-0.7)
[2018-05-10 21:47] VITALS: RESP 1
[2018-05-10 21:49] LABS: Anion Gap 6.8 mmol/L (3-11); BUN 13 mg/dL (7-18); CO2 31.2 mmol/L (21.0-32.0); CREATININE 0.75 mg/dL (0.55-1.02); Calcium 9.7 mg/dL (8.5-10.1); Chloride 99 mmol/L (98-107); Glucose 165 mg/dL (70-100); Potassium 3.8 mmol/L (3.5-5.1); Sodium 137 mmol/L (136-145)
[2018-05-10 22:10] LABS: Troponin I < 0.02 ng/mL (0.00-0.06)
[2018-05-10] MEDS: Ketorolac 15 MG/ML VIAL IVP (22:27)
[2018-05-10] MEDS: Normal Saline Flush 10 ML SYR IVP (22:29)
--- NOTE | 2018-05-10 22:32 | DI.VRAD_ITS ---
EXAM: XR Chest, 2 Views EXAM DATE/TIME: 05/10/2018 8:41 PM CLINICAL HISTORY: 22 years old, female; Pain and signs and symptoms; Shortness of breath; Chest pain; Type not specified; Patient HX: Chest pain/shortness of breath TECHNIQUE: XR of the chest, 2 views. COMPARISON: CR XR ABD FLAT UPRIGHT PA CHEST 04/27/2018 7:13 PM FINDINGS: Lungs: No consolidation. Pleural space: No pleural effusion. No pneumothorax. Heart/Mediastinum: No cardiomegaly. Bones/joints: Chronic appearing cortical density about the distal right clavicle suggesting chronic trauma. IMPRESSION: No acute cardiopulmonary pathology. Dictated and Authenticated by: Mere Cheng MD. Ordering:BRODY FERNANDO MD
[2018-05-11 01:00] LABS: Troponin I < 0.02 ng/mL (0.00-0.06)
[2018-05-11] MEDS: Albuterol HFA 8 GM 60 PUFF INH IH (01:31)
[2018-05-11] MEDS: Inhaler, Assist Device 1 EACH MC (01:32)
[2018-05-11 01:43] VITALS: BP 163/100; PULSE 79; RESP 16; O2SAT 95
== END 2018-05-11 01:42 | disposition other institution (70) ==
PROVIDERS: Emergency Provider Emergency Medicine; PCP Specialist/Technologist Athletic Trainer
DX: J45.901 Unspecified asthma with (acute) exacerbation (principal); R07.9 Chest pain, unspecified; E11.9 Type 2 diabetes mellitus without complications; Z79.84 Long term (current) use of oral hypoglycemic drugs; F17.210 Nicotine dependence, cigarettes, uncomplicated
CPT/HCPCS: 36415; 80048; 93005; 94640; 96374; 99285; 71046; 83735; 84484; 85025; 93010; J1885; J7620

== ENCOUNTER 2018-05-13 13:01 | Emergency (ER) | payer MEDICAID, SELFPAY ==
[2018-05-13 13:00] VITALS: BP 136/61; PULSE 82; RESP 16; TEMP 36.4; O2SAT 97
--- NOTE | 2018-05-13 13:12 | W.ED.GENAD ---
Discharge Plan Disposition Patient Disposition: [facility] Condition: Stable Discharge Details Chief Complaint: PsychEval Clinical Impression: Suicidal ideation, Major depression Primary Care Provider: Charanjit Maria ED Provider: Thu Yusuf Home Meds and New Rx's Prescriptions: No Action aripiprazole [Abilify] 5 MG tablet 5 mg PO MO RF: 0 acetaminophen 325 mg Tablet 650 mg PO PRN PRNRF: 0 polyethylene glycol 3350 [Miralax] 17 gram Powder In Packet 17 g PO PRN PRNRF: 0 hydralazine 50 mg Tablet 50 mg PO DAILY RF: 0 trazodone 100 mg Tablet 100 mg PO HS RF: 0 metformin 500 mg Tablet PO DAILY RF: 0 sertraline 25 mg Tablet 75 mg PO DAILY RF: 0 albuterol sulfate [ProAir HFA] 90 mcg/actuation Hfa Aerosol Inhaler 2 puff Inhalation Q4H PRN PRNQty: 8.5 RF: 0 Discharge Data Discharge Date/Time-TO BE ENTERED AT DEPARTURE: 05/13/18 17:52 Medical Decision Making 22-year-old female with a history of schizophrenia, PTSD, anxiety, depression, diabetes and asthma who presents for auditory hallucinations telling her to kill herself. Patient states she has no specific plan but occasionally has thought of cutting herself. No previous history of suicide attempts. No visual hallucinations, drug use or homicidal ideation. Pt was sent from the [facility] bed where she has been for the past month. Patient had refused evaluation at the [facility] bed and requested transfer to the ED. Patient has been seen here 2 times in the past week - 1 for suicidal ideations and 1 for chest pain, both of which she had lab work and was medically cleared. As patient had unremarkable lab work 3 days ago, I do not see an indication for repeat lab work at this time. We will do an Accu-Chek, urine and UDS and call mental health. 1400 --discussed with mental health - there are beds available and [facility] - will attempt placement. Accucheck 171. UDS and urine negative. Pt is medically cleared. 1703 --d/w Dr. Moore - accepts pt for transfer to [facility]. Pt has been cooperative. Medical Records Medical records reviewed: Yes I reviewed the patient's medical records. Lab Data Lab results reviewed: Yes I reviewed the patient's lab results. Laboratory Tests Range/Units 05/13/18 05/13/18 05/13/18 13:10 13:10 13:30 WBC Cancelled RBC Cancelled Hgb Cancelled Hct Cancelled MCV Cancelled MCH Cancelled MCHC Cancelled RDW Cancelled Plt Count Cancelled MPV Cancelled Abs Immat Gran (auto) Cancelled Immature Gran % Cancelled Neutrophils % Cancelled Lymphocytes % Cancelled Monocytes % Cancelled Eosinophils % Cancelled Basophils % Cancelled Absolute Neutrophils Cancelled Band Neutrophils Cancelled Absolute Lymphocytes Cancelled Absolute Monocytes Cancelled Absolute Eosinophils Cancelled Absolute Basophils Cancelled Metamyelocytes Cancelled Myelocytes Cancelled Promyelocytes Cancelled Nucleated RBCs Cancelled Differential Comment Cancelled Atypical Lymphocytes Cancelled Other Cell Type Cancelled RBC Morphology Cancelled Polychromasia Cancelled Hypochromasia Cancelled Poikilocytosis Cancelled Basophilic Stippling Cancelled Anisocytosis Cancelled Microcytosis Cancelled Macrocytosis Cancelled Spherocytes Cancelled Target Cells Cancelled Tear Drop Cells Cancelled Ovalocytes Cancelled Stomatocytes Cancelled [place] Bodies Cancelled Sofia Cells Cancelled Acanthocytes (Spur) Cancelled Schistocytes Cancelled Sodium Cancelled Potassium Cancelled Chloride Cancelled Carbon Dioxide Cancelled Anion Gap Cancelled BUN Cancelled Creatinine Cancelled Estimated GFR/1.73 m2 Cancelled Glucose Cancelled Calcium Cancelled Urine Opiates Screen (Negative) Negative Urine Methadone Screen (Negative) Negative Ur Barbiturates Screen (Negative) Negative Ur Tricyclics Screen (Negative) Negative Ur Amphetamines Screen (Negative) Negative U Benzodiazepines Scrn (Negative) Negative Urine Cocaine Screen (Negative) Negative Ur THC Screen (Negative) Negative Ethyl Alcohol Cancelled HPI General Mode of arrival: ambulatory. Date/Time Provider Initiated Documentation: 05/13/18 13:06. Limitations to Documentation: no limitations. Information obtained by: patient. HPI Narrative: Patient is a 22-year-old female with a history of obesity, anxiety, depression, diabetes, schizophrenia who presents for hearing voices and suicidal ideation. Patient states the voices are telling her to kill herself. Patient states she has no specific plan but states she occasionally thinks of cutting herself. Denies any previous history of suicide attempt. She has been taking Abilify injection once monthly. She denies any acute medical complaints. Related Data Home Medications Medication Instructions Recorded Confirmed aripiprazole [Abilify] 5 mg PO MO tab-cap 09/29/17 05/13/18 trazodone 100 mg PO HS 03/18/18 05/13/18 metformin mg PO DAILY 04/17/18 05/10/18 sertraline 75 mg PO DAILY 04/17/18 05/13/18 acetaminophen 650 mg PO PRN PRN 05/07/18 05/13/18 hydralazine 50 mg PO DAILY 05/07/18 05/13/18 polyethylene glycol 3350 [Miralax] 17 g PO PRN PRN 05/07/18 05/13/18 albuterol sulfate [ProAir HFA] 2 puff INHALATION Q4H PRN PRN #8.5 05/11/18 05/13/18 g Previous Rx's Medication Instructions Recorded albuterol sulfate [ProAir HFA] 2 puff INHALATION Q4H PRN PRN #8.5 05/11/18 g Allergies Allergy/AdvReac Type Severity Reaction Status Date / Time Penicillins Allergy Unknown Unverified 05/13/18 13:06 aspirin AdvReac Severe Wheezing Unverified 05/13/18 13:06 General Stated Complaint: PsychEval JAMES: 2 Review of Systems Review of Systems All systems reviewed & are unremarkable except as noted in HPI and below Constitutional Reports as per HPI, Denies chills and Denies fever(s) Eyes Denies blurry vision ENT Denies dizziness, Denies sore throat and Denies throat swelling Cardiovascular Denies chest pain and Denies dyspnea Respiratory Denies dyspnea Gastrointestinal Denies abdominal pain, Denies diarrhea and Denies vomiting Genitourinary Denies hematuria and Denies dysuria Musculoskeletal Denies back pain and Denies numbness Integumentary/Breasts Denies lesions and Denies rash Neurologic Denies dizziness and Denies numbness Psychiatric Reports depression, Reports auditory hallucinations, Denies visual hallucinations, Denies homicidal ideation and Reports suicidal ideation Allergic/Immunologic Denies throat swelling PFSH Diabetes mellitus (Chronic) Asthma Insomnia Schizophrenia Family History Other Diabetes Essential hypertension Family History Other Diabetes Essential hypertension Medical History Diabetes mellitus (Chronic) Asthma Insomnia Schizophrenia Social History Smoking/Tobacco Use Status: Current every day Social History Smoking/Tobacco Use Status: Current every day alcohol intake: never substance use type: does not use Exam Const General: cooperative, healthy appearing and no acute distress HENMT Head: normal to inspection Mouth: oral mucosae normal Eyes General: appearance normal, both eyes and all related structures Neck Neck: normal visual inspection Resp Effort & Inspection: normal respiratory effort and able to speak in complete sentences Auscultation: clear to auscultation bilaterally Cardio Rate: regular rate Rhythm: regular rhythm GI Inspection: normal to inspection Palpation: soft, not firm and nontender Skin General skin exam: no rashes or lesions noted Neuro General: alert, awake and oriented x3 Motor: muscle tone normal throughout Extrem General: normal to inspection and full ROM Psych Appearance: grossly normal Affect: normal affect Course Vital Signs Temperature 97.6 F 05/13/18 13:00 Pulse 82 05/13/18 13:00 Respiratory Rate 16 05/13/18 13:00 Blood Pressure 136/61 05/13/18 13:00 Pulse Oximetry 97 05/13/18 13:00 Temperature 97.6 F 05/13/18 13:00 Temperature Source Skin 05/13/18 13:00 Pulse 82 05/13/18 13:00 Respiratory Rate 16 05/13/18 13:00 Respiratory Effort 05/13/18 13:03 Blood Pressure 136/61 05/13/18 13:00 Blood Pressure Position Sitting 05/13/18 13:00 Pulse Oximetry 97 05/13/18 13:00 Oxygen Delivery Method Room Air 05/13/18 13:00 Oxygen Flow Rate 0 05/13/18 13:00 Pain Level 0 05/13/18 13:00
[2018-05-13 14:01] LABS: *AMPHETAMINES SCREEN URINE Negative (Negative); *BARBITURATES SCREEN URINE Negative (Negative); *BENZODIAZEPINES SCREEN URINE Negative (Negative); Cannabinoids THC Negative (Negative); Cocaine Screen,Urine Negative (Negative); METHADONE URINE SCREEN Negative (Negative); OPIATES URINE SCREEN Negative (Negative)
[2018-05-13 14:07] LABS: Tricyclic Antidepressants Negative (Negative)
--- NOTE | 2018-05-13 14:20 | PDOC.MHCN ---
Date of service: 05/13/18 Time of Service: 14:21 Mental Health Crisis Note Presenting Issue How did you arrive at the ED and why did you come: Client arrived at the ER by ambulance from the care bed in [place], [place]. Client was currently at the [facility] as a hospital diversion, but states that she needs a high level of care. Loreta Turcios director of the care bed sent the client to the ER today for psychiatric evaluation. Client states that she is hearing an increase in auditory hallucinations that are deep, demonic and telling her to harm herself. Client is afraid that she may harm herself if she cannot receive psychiatric care. [facility] requested [facility] of care. Precipitating Factors Client reports hearing demonic voices telling her to harm herself. Client states no HI Disposition BEHAVIOR: Client is distant, appears to be consumed in her phone and does not talk much. EYE CONTACT: Poor MOOD: Client appears stressed, dishevelled, and depressed AFFECT: Client is polite but hesitant to communicate APPETITE: Normal SLEEP(trouble falling/staying asleep: Normal 6-8 hours Plan Client declined therapeutic interventions at the [facility] and was only interested in having a high level of care. Readmission to [facility] was discussed, but due to her increasing level of SI and auditory hallucinations the client can not receive the appropriate treatment at the [facility]. Signature Clinician's Name/Title: Shandra ABAD Clinical Guest Services Representative at [facility] On-Call Clinician for 05/13/18-05/14/18
--- NOTE | 2018-05-13 14:35 | PDOC.MHCN_ITS ---
Date of service: 05/13/18 Time of Service: 14:21 Mental Health Crisis Note Presenting Issue How did you arrive at the ED and why did you come: Client arrived at the ER by ambulance from the care bed in [place], [place]. Client was currently at the [facility] as a hospital diversion, but states that she needs a high level of care. Loreta Turcios director of the care bed sent the client to the ER today for psychiatric evaluation. Client states that she is hearing an increase in auditory hallucinations that are deep, demonic and telling her to harm herself. Client is afraid that she may harm herself if she cannot receive psychiatric care. [facility] the requested level of care. Precipitating Factors Client reports hearing demonic voices telling her to harm herself. Client states no HI Disposition BEHAVIOR: Client is distant, appears to be consumed in her phone and does not talk much. EYE CONTACT: Poor MOOD: Client appears stressed, dishevelled, and depressed AFFECT: Client is polite but hesitant to communicate APPETITE: Normal SLEEP(trouble falling/staying asleep: Normal 6-8 hours Plan Client declined therapeutic interventions at the [facility] and was only interested in having a high level of care. [facility] , but due to her increasing level of SI and auditory hallucinations the client can not receive the appropriate treatment at the [facility]. Signature Clinician's Name/Title: Shandra ABAD Clinical Lens Gauger at [facility] On-Call Clinician for 05/13/18-05/14/18
--- NOTE | 2018-05-13 18:10 | PDOC.ERCMPRO ---
Care Management Progress Note VOLUNTARY FOR INPATIENT PSYCHIATRIC STABILIZATION. Since arriving at [facility]; Talia has demonstrated appropriate coping and communication skills, has articulated her needs and concerns and is fully engaged during staff interactions. Huddle Participants: Sherlyn; GABINO, Donn; RN, Aparna; RAI, Shandra; [facility] LABORER LIVESTOCK forge utility worker. Date and time: 05/13@1630 Safety plan has been established with patient, and care team, to adhere to patient goals, identify restrictions based on behavioral status, address nutrition, and determine allowed personal belongings, tools for hygiene and personal care. Determine level of activity including ambulation, level of supervision, visitors, and determine privileges based on behaviors and level of engagement by pt. SAFETY PLAN: 1. Will remain on suicide precautions. To remain in patient's own clothes. 2. Will remain in room under direct supervision of one-on-one staff at all times provided by DESIREE, HUSAM property administrator. 3. May have paper cups, plates, finger foods. 4. Follow [facility] Management of the Admitted Behavioral Health Patient policy. 5. Comfort bath system only. 6. No personal belongings: may have cell phone. 7. No Visitors 8. Bathroom privileges: may use bathroom with staff escort. Placement: Shandra Coats is reviewing for possible admission tonMurray hodgson is reviewing for possible admission tomorrow. No other beds available per Shandra. Patient is currently voluntarily at [facility] and seeking inpatient admission when a bed becomes available. [facility] Frontline Embroidery Specialist will continue seeking placement. Please contact the Assistant Printer Floor Covering Cash Applications Clerk ([phone]) and [facility] Embroidery Specialist ([phone]) for any needed changes in the Safety Plan. Safety plan has been provided to interdepartmental care team including Clinical Coordinator, Nursing Golf Technician.
--- NOTE | 2018-05-13 18:14 | CMPROGNOTE_ITS ---
Care Management Progress Note VOLUNTARY FOR INPATIENT PSYCHIATRIC STABILIZATION. Since arriving at [facility]; Talia has demonstrated appropriate coping and communication skills, has articulated her needs and concerns and is fully engaged during staff interactions. Huddle Participants: Sherlyn; GABINO, Donn; RN, Aparna; RAI, Shandra; [facility] COUNTER MANAGER field ironworker. Date and time: 05/13@1630 Safety plan has been established with patient, and care team, to adhere to patient goals, identify restrictions based on behavioral status, address nutrition, and determine allowed personal belongings, tools for hygiene and personal care. Determine level of activity including ambulation, level of supervision, visitors, and determine privileges based on behaviors and level of engagement by pt. SAFETY PLAN: 1. Will remain on suicide precautions. To remain in patient's own clothes. 2. Will remain in room under direct supervision of one-on-one staff at all times provided by DESIREE, HUSAM foreclosure home inspector. 3. May have paper cups, plates, finger foods. 4. Follow [facility] Management of the Admitted Behavioral Health Patient policy. 5. Comfort bath system only. 6. No personal belongings: may have cell phone. 7. No Visitors 8. Bathroom privileges: may use bathroom with staff escort. Placement: Shandra Coats is reviewing for possible admission tonMurray hodgson is reviewing for possible admission tomorrow. No other beds available per Shandra. Patient is currently voluntarily at [facility] and seeking inpatient admission when a bed becomes available. [facility] Frontline Automobile Designer will continue seeking placement. Please contact the Sheet Metal Worker Apprentice Yardage Caller ([phone]) and [facility] Automobile Designer ([phone]) for any needed changes in the Safety Plan. Safety plan has been provided to interdepartmental care team including Clinical Coordinator, Nursing Drop Wire Stringer.
--- NOTE | 2018-05-13 18:14 | PDOC.ERCMPRO ---
Care Management Progress Note Per Shandra, Talia has been struggling to stay regulated in the community for sometime. 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 Shandra reports Talia has been at the care bed since 04/14/18. Her outsole caser is [employer] and her medication is managed by Ivonne Munoz NP. Talia reports she has been struggling with ongoing SI for some time. She describes command voices telling her to hurt herself. She reports feeling the voices had historically been well managed with beginning the medication Abilify but reports she feels she has adjusted to this and may require a larger dose. Talia shares having an appointment with her medication prescriber, Ivonne but reports feeling a sense of urgency managing the new onset of these voices and reports if she goes to stabilization a doctor can prescribe the increase in Abilify now without waiting and she will not need to see Ivonne on Tuesday. Talia reports besides the voices, all is going well at the care bed. She reports that she does miss her fiance of two years; Nic Gray who she resides with. She shares that he is supportive of the more recent changes and wants her to be well. She shares that he does not have gas money to come see her all the time and will be unable to visit her if she goes to stabilization. She also reports their car is scheduled to go to the shop soon so he will not have a vehicle. Talia shares that she has previously been to [facility] and [place] and is hopeful she will go somewhere else this time. She communicates openly and pleasantly. She is struggling with feeling quite uncomfortable; she is obese and the paper clothes available are too tight. CM requests change in safety plan to permit Talia to wear her own clothes. Talia also reports the command voices have been telling her to use her hospital wrist band to cut her wrist. RAI provides positive feedback for Talia sharing this information and requests with patient permission to have the band removed. PATRICK Pop places a change person the sleeve of Talia shirt for identification in place of the wrist band. Talia also struggles with gas-she flatulates loudly when engaging with this physician underwriter and belches consistently-she reports this is normal for her and shares medical history of struggling with her belly and diabetes. Talia [facility] [place]; CM agrees to revisit safety plan if Talia remains at [facility]. RAI is notified by [facility] at 1720 that [facility] has accepted Talia. Lilia of the ER reports MD to MD is complete, and is coordinating transport. CM requests ER notify [facility] P# [phone] when Talia leaves the building.
--- NOTE | 2018-05-13 18:32 | CMPROGNOTE_ITS ---
Care Management Progress Note Per Shandra, Talia has been struggling to stay regulated in the community for sometime. 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 Shandra reports Talia has been at the care bed since 04/14/18. Her case maker is Layla [employer] and her medication is managed by Ivonne Munoz NP. Talia reports she has been struggling with ongoing SI for some time. She describes command voices telling her to hurt herself. She reports feeling the voices had historically been well managed with beginning the medication Abilify but reports she feels she has adjusted to this and may require a larger dose. Talia shares having an appointment with her medication prescriber, Ivonne but reports feeling a sense of urgency managing the new onset of these voices and reports if she goes to stabilization a doctor can prescribe the increase in Abilify now without waiting and she will not need to see Ivonne on Tuesday. Talia reports besides the voices, all is going well at the care bed. She reports that she does miss her fiance of two years; Nic Gray who she resides with. She shares that he is supportive of the more recent changes and wants her to be well. She shares that he does not have gas money to come see her all the time and will be unable to visit her if she goes to stabilization. She also reports their car is scheduled to go to the shop soon so he will not have a vehicle. Talia shares that she has previously been to [facility] and [place] and is hopeful she will go somewhere else this time. She communicates openly and pleasantly. She is struggling with feeling quite uncomfortable; she is obese and the paper clothes available are too tight. CM requests change in safety plan to permit Talia to wear her own clothes. Talia also reports the command voices have been telling her to use her hospital wrist band to cut her wrist. RAI provides positive feedback for Talia sharing this information and requests with patient permission to have the band removed. PATRICK Pop places a hot wound spring production supervisor the sleeve of Talia shirt for identification in place of the wrist band. Talia also struggles with gas-she flatulates loudly when engaging with this speech writer and belches consistently-she reports this is normal for her and shares medical history of struggling with her belly and diabetes. Talia is hopeful she can transfer to [facility]; CM agrees to revisit safety plan if Talia remains at [facility]. RAI is notified by [facility] at 1720 that [facility] has accepted Talia. Lilia of the ER reports MD to MD is complete, and is coordinating transport. CM requests ER notify [facility] P# [phone] when Talia leaves the building.
== END 2018-05-13 17:52 | disposition short-term general hospital (02) ==
PROVIDERS: Emergency Provider Physician Assistant; PCP Specialist/Technologist Athletic Trainer
DX: F41.8 Other specified anxiety disorders (principal); R45.851 Suicidal ideations; R44.0 Auditory hallucinations; E11.9 Type 2 diabetes mellitus without complications; Z79.84 Long term (current) use of oral hypoglycemic drugs
CPT/HCPCS: 36416; 80048; 80307; 81025; 82962; 99285; 80320; 85025; 99284

== ENCOUNTER 2018-06-02 23:46 | Emergency (ER) | payer MEDICAID, SELFPAY ==
[2018-06-02 23:48] VITALS: BP 148/99; PULSE 79; RESP 15; TEMP 36.7; O2SAT 96
--- NOTE | 2018-06-02 23:58 | NUR.NOTE ---
Nursing Note:pt wanded by ramy calloway.
--- NOTE | 2018-06-03 00:15 | W.ED.GENAD ---
Discharge Plan Disposition Patient Disposition: HOME Condition: Good Discharge Details Chief Complaint: PsychEval Clinical Impression: Adjustment disorder Reason For Visit: JESSICA Primary Care Provider: Charanjit Maria ED Provider: Kenton Ovalle Home Meds and New Rx's Prescriptions: Continued aripiprazole [Abilify] 5 MG tablet 5 mg PO MO RF: 0 acetaminophen 325 mg Tablet 650 mg PO PRN PRNRF: 0 polyethylene glycol 3350 [Miralax] 17 gram Powder In Packet 17 g PO PRN PRNRF: 0 hydralazine 50 mg Tablet 50 mg PO DAILY RF: 0 trazodone 100 mg Tablet 100 mg PO HS RF: 0 metformin 500 mg Tablet PO DAILY RF: 0 sertraline 25 mg Tablet 75 mg PO DAILY RF: 0 ProAir HFA 90 mcg/actuation Hfa Aerosol Inhaler 2 puff Inhalation Q4H PRN PRNQty: 8.5 RF: 0 Discharge Instructions Additional Instructions: Continue your current medications. Stay in the PIT bed tonight and return home tomorrow. Follow-up with your counselors. Medical Decision Making Patient is medically cleared. She denies any suicidal intent or gesture at this time. She has no physical complaint of. I did speak to mental health. They came and evaluated her. She continues to deny being suicidal. She wants to go home. Unfortunately there is no way to get her there tonight. She will therefore be transported [facility] to [facility] and can then find her way back home tomorrow. Follow-up with [facility] and counselors. HPI General Mode of arrival: EMS. Date/Time Provider Initiated Documentation: 06/03/18 00:15. Limitations to Documentation: no limitations. Information obtained by: patient and old records reviewed. HPI Narrative: Patient presenting by ambulance after she called them for feeling suicidal. Patient arrives here no longer feeling suicidal. She has been seen by me a number of times. She does have a psychiatric history and was in the care bed managed by TC. She also had a psychiatric admission recently and was discharged. She reports to me that her boyfriend broke up with her. They have been living together for a couple years. Now she is not sure where she is going to go. She is not feeling suicidal. She does have HOSPICE HOME HEALTH AIDE whom she did speak to. HOSPICE HOME HEALTH AIDE, she reports that patient denied being suicidal to her. Patient has no physical complaints of. Related Data Home Medications Medication Instructions Recorded Confirmed aripiprazole [Abilify] 5 mg PO MO tab-cap 09/29/17 06/02/18 trazodone 100 mg PO HS 03/18/18 06/02/18 metformin mg PO DAILY 04/17/18 05/10/18 sertraline 75 mg PO DAILY 04/17/18 06/02/18 acetaminophen 650 mg PO PRN PRN 05/07/18 06/02/18 hydralazine 50 mg PO DAILY 05/07/18 05/13/18 polyethylene glycol 3350 [Miralax] 17 g PO PRN PRN 05/07/18 06/02/18 ProAir HFA 2 puff INHALATION Q4H PRN PRN #8.5 05/11/18 06/02/18 g Previous Rx's Medication Instructions Recorded ProAir HFA 2 puff INHALATION Q4H PRN PRN #8.5 05/11/18 g Allergies Allergy/AdvReac Type Severity Reaction Status Date / Time Penicillins Allergy Unknown Unverified 06/02/18 23:56 aspirin AdvReac Severe Wheezing Unverified 06/02/18 23:56 General Stated Complaint: PsychEval JAMES: 2 Review of Systems Constitutional Denies chills, Denies fever(s), Denies headache(s) and Denies weakness ENT Denies headache(s) Cardiovascular Denies chest pain, Denies diaphoresis, Denies syncope and Denies dyspnea Respiratory Denies cough and Denies dyspnea Gastrointestinal Denies abdominal pain, Denies nausea and Denies vomiting Musculoskeletal Denies numbness Neurologic Denies syncope, Denies headache(s), Denies focal weakness, Denies numbness and Denies weakness Psychiatric Denies hallucinations, Denies homicidal ideation and Denies suicidal ideation [facility] Medical History Diabetes mellitus (Chronic) Asthma Insomnia Schizophrenia Social History Smoking/Tobacco Use Status: Current every day alcohol intake: never substance use type: does not use Exam Const General: cooperative and no acute distress Nutritional Appearance: obese morbidly obese [facility] Head: normocephalic and atraumatic Neck Neck: normal visual inspection, trachea midline and supple Resp Effort & Inspection: normal respiratory effort Auscultation: clear to auscultation bilaterally Cardio Rate: regular rate Rhythm: regular rhythm Heart Sounds: S1 normal and S2 normal Neuro General: alert, oriented x3, gait normal, no focal motor deficits and CN's II-XI intact bilaterally Psych Appearance: grossly normal Mental Status: mental status grossly normal Speech and Movement: speech and movement normal Mood: congruent mood Affect: normal affect Attitude: cooperative Thought Process: normal Course Vital Signs Temperature 98.1 F 06/02/18 23:48 Pulse 79 06/02/18 23:48 Respiratory Rate 15 06/02/18 23:48 Blood Pressure 148/99 H 06/02/18 23:48 Pulse Oximetry 96 06/02/18 23:48 Temperature 98.1 F 06/02/18 23:48 Temperature Source Temporal Artery Scan 06/02/18 23:48 Pulse 79 06/02/18 23:48 Respiratory Rate 15 06/02/18 23:48 Respiratory Effort Non-Labored 06/02/18 23:55 Blood Pressure 148/99 H 06/02/18 23:48 Blood Pressure Position Sitting 06/02/18 23:48 Pulse Oximetry 96 06/02/18 23:48 Oxygen Delivery Method Room Air 06/02/18 23:48 Oxygen Flow Rate 0 06/02/18 23:48 Pain Level 0 06/02/18 23:48
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
== END 2018-06-03 02:01 | disposition home or self-care (01) ==
PROVIDERS: Emergency Provider Emergency Medicine; PCP Specialist/Technologist Athletic Trainer
DX: F43.21 Adjustment disorder with depressed mood (principal); R45.851 Suicidal ideations; E11.9 Type 2 diabetes mellitus without complications
CPT/HCPCS: 99285; 99282

== ENCOUNTER 2018-06-17 16:34 | Emergency (ER) | payer MEDICAID, SELFPAY ==
[2018-06-17 16:40] VITALS: BP 156/100; PULSE 93; RESP 16; TEMP 36.7; O2SAT 97
--- NOTE | 2018-06-17 17:11 | ED.GENADUL_ITS ---
Discharge Plan Disposition Patient Disposition: HOME Condition: Good Discharge Details Chief Complaint: Diabetes Clinical Impression: Diabetes, H/O medication noncompliance Reason For Visit: high blood sugar Primary Care Provider: Charanjit Maria ED Provider: Prem Moore Home Meds and New Rx's Prescriptions: New Accu-Chek Adriana Plus test strp strip .ROUTE .MEDSUPPLY Qty: 100 RF: 0 No Action aripiprazole [Abilify] 5 MG tablet 5 mg PO MO RF: 0 acetaminophen 325 mg Tablet 650 mg PO PRN PRNRF: 0 polyethylene glycol 3350 [Miralax] 17 gram Powder In Packet 17 g PO PRN PRNRF: 0 hydralazine 50 mg Tablet 50 mg PO DAILY RF: 0 trazodone 100 mg Tablet 100 mg PO HS RF: 0 metformin 500 mg Tablet PO DAILY RF: 0 sertraline 25 mg Tablet 75 mg PO DAILY RF: 0 ProAir HFA 90 mcg/actuation Hfa Aerosol Inhaler 2 puff Inhalation Q4H PRN PRNQty: 8.5 RF: 0 Discharge Instructions Instructions: Diabetes Mellitus Type 2 in Adults (ED) Additional Instructions: Please use your test strips as directed. Please take your metformin as directed. Please follow-up with your primary care provider about potential different modalities for treatment of your diabetes. If you notice any worsening of your symptoms, or any new symptoms such as vomiting, diarrhea, fever, chills, shortness of breath, chest pain, numbness, weakness, or fainting , please return immediately to the emergency department for reevaluation. Please follow up with your primary care provider as soon as possible for reassessment and reevaluation. As always, it was a pleasure participating in your medical care today. Referrals: hCaranjit Maria [Primary Care Provider] - Medical Decision Making This is a 22-year-old female who presents for evaluation of the need for diabetic test strips. She has not been taking her metformin because I do not like to be on pills. She ran out of test strips today. Accu-Chek here demonstrates a blood sugar in the 200s. We will get the patient a new pr escription for diabetic test strips. Vital signs are stable and reassuring and she shows no clinical indications of HH NK or diabetic ketoacidosis. With reassuring vital signs and a reassuring physical exam with a blood glucose only in the 200s I do not think that she requires admission or further laboratory workup as there is no clinical indication at this time. We will recommend that the patient restart her metformin and closely follows up with her primary care provider. I have extensively reviewed the treatment plan and discharge instructions with the patient. I have addressed all patient concerns at this time. The patient was made aware of what symptoms to monitor for that would warrant a return to the emergency department. Discussed the plan with the patient, they demonstrate verbal understanding and agreement with our assessment and plan at this time. HPI General Date/Time Provider Initiated Documentation: 06/17/18 17:01 . HPI Narrative: This is a 22-year-old female with a past medical history of asthma and diabetes who presents today for evaluation of hyperglycemia. The patient states that she ran out of diabetic test strips at home earlier today and needs a refill. She states that her sugar has been in the 500s as of late. Patient states that she has stopped taking her metformin because she does not want to be on pills anymore. Is been 2-3 weeks since she took her last dose of metformin. She does not take any insulin. She has not changed her diet. She denies any headache, chest pain, vision changes, polydipsia, or other complaints. No other modifying factors at this time. She denies any recent surgery, pertinent family history, or IV or illicit drug use. Related Data Home Medications Medication Instructions Recorded Confirmed aripiprazole [Abilify] 5 mg PO MO tab-cap 09/29/17 06/02/18 trazodone 100 mg PO HS 03/18/18 06/02/18 metformin mg PO DAILY 04/17/18 05/10/18 sertraline 75 mg PO DAILY 04/17/18 06/02/18 acetaminophen 650 mg PO PRN PRN 05/07/18 06/02/18 hydralazine 50 mg PO DAILY 05/07/18 05/13/18 polyethylene glycol 3350 [Miralax] 17 g PO PRN PRN 05/07/18 06/02/18 ProAir HFA 2 puff INHALATION Q4H PRN PRN #8.5 05/11/18 06/02/18 g blood sugar diagnostic [Accu-Chek #100 each 06/17/18 Adriana Plus test strp] Previous Rx's Medication Instructions Recorded ProAir HFA 2 puff INHALATION Q4H PRN PRN #8.5 05/11/18 g blood sugar diagnostic [Accu-Chek #100 each 06/17/18 Adriana Plus test strp] Allergies Allergy/AdvReac Type Severity Reaction Status Date / Time Penicillins Allergy Unknown Unverified 06/02/18 23:56 aspirin AdvReac Severe Wheezing Unverified 06/02/18 23:56 General JAMES: 2 Review of Systems Review of Systems All systems reviewed & are unremarkable except as noted in HPI and below PFSH Social History Smoking/Tobacco Use Status: Current every day alcohol intake: never substance use type: does not use Exam Narrative Exam Narrative: 1.Const: Well-nourished, Well-developed, appearing stated age 2.Eyes: PERRL, no conjunctival injection, and symmetrical lids. 3.ENT: Atraumatic external nose and ears. Moist MM. Neck: Symmetric, trachea midline, No thyromegaly. 4.CVS: +S1/S2, No murmurs or gallops. Peripheral pulses 2+ and equal in all extremities. Brisk capillary refill in all extremities. 5.RESP: Unlabored respiratory effort. Clear to auscultation bilaterally. No wheezes rales or rhonchi 6.GI: Soft, Nontender/Nondistended, No hepatosplenomegaly. No guarding or rebound. 7.MSK: Normocephalic/Atraumatic, Extremities w/o deformity or ttp No cyanosis or clubbing, Normal movement of all extremities 8.Skin: Warm, Dry. No rashes or lesions. 9.Neuro: complex care nurse practitioner II-XII grossly intact. Sensation grossly intact, no focal neurologic deficits. 10.Psych: (AAO) x3. Appropriate mood and affect
== END 2018-06-17 17:15 | disposition home or self-care (01) ==
PROVIDERS: Emergency Provider Student in an Organized Health Care Education/Training Program; PCP Specialist/Technologist Athletic Trainer
DX: E11.9 Type 2 diabetes mellitus without complications (principal); E11.65 Type 2 diabetes mellitus with hyperglycemia; Z91.15 Patient's noncompliance with renal dialysis; Z79.84 Long term (current) use of oral hypoglycemic drugs
CPT/HCPCS: 36416; 82962; 99282

== ENCOUNTER 2018-06-27 14:45 | Outpatient (CLI) | payer MEDICAID, SELFPAY ==
[2018-06-27 15:30] LABS: Abs Immature Grans 0.05 k/cumm (0.0-0.09); Absolute Basophil Count 0.03 k/cumm (0.0-0.2); Absolute Eosinophil Count 0.33 k/cumm (0.0-0.7); Absolute Monocyte Count 0.82 k/cumm (0.11-0.7); Basophils % 0.2; Eosinophils % 2.3; HCT 42.1 % (36.0-46.0); HGB 13.9 g/dL (12.0-15.5); Immature Grans % 0.3; Lymphocytes % 23.9; Mean Corpuscular Hemoglobin 30.5 pg (27.0-33.0); Mean Corpuscular Volume 92.5 fL (80-95); Mean Platelet Volume 11.2 fL (8.0-11.0); Monocytes % 5.7; Neutrophils % 67.6; Platelet Count 273 x1000/uL (130-400); RBC 4.55 m/cumm (4.00-5.20); RBC Distribution Width 13.3 % (11.7-14.6); White Blood Cell Count 14.41 k/cumm (4.4-10.8)
[2018-06-27 15:31] LABS: Absolute Lymphocyte Count 3.44 k/cumm (1.2-3.4); Absolute Neutrophil Count 9.74 k/cumm (1.2-6.7)
[2018-06-27 17:21] LABS: ALT 114 U/L (12-78); AST 130 U/L (15-37); Albumin 3.5 g/dL (3.4-5.0); Alkaline Phosphatase 86 U/L (46-116); Anion Gap 7.6 mmol/L (3-11); BUN 12 mg/dL (7-18); Bilirubin, Total 0.2 mg/dL (0.2-1.0); CO2 30.4 mmol/L (21.0-32.0); CREATININE 0.71 mg/dL (0.55-1.02); Calcium 9.4 mg/dL (8.5-10.1); Chloride 101 mmol/L (98-107); Glucose 107 mg/dL (70-100); Sodium 139 mmol/L (136-145); Total Protein 8.1 g/dL (6.4-8.2)
[2018-06-27 17:24] LABS: HCG Quant, Pregnancy < 1 mIU/mL (1-3)
[2018-06-27 17:44] LABS: Hemoglobin A1C 7.8 % (4.5-6.2)
== END 2018-06-27 15:05 ==
PROVIDERS: PCP Specialist/Technologist Athletic Trainer; Visit Provider Obstetrics & Gynecology
DX: Z34.91 Encounter for supervision of normal pregnancy, unspecified, first trimester (principal); E11.65 Type 2 diabetes mellitus with hyperglycemia; Z01.84 Encounter for antibody response examination; Z32.01 Encounter for pregnancy test, result positive
CPT/HCPCS: 36415; 80053; 86850; 86900; 86901; 83036; 84702; 85025

== ENCOUNTER 2018-08-18 20:34 | Emergency (ER) | payer MEDICAID, SELFPAY ==
[2018-08-18] VITALS (22 sets, daily range): BP systolic 138–167; BP diastolic 60–128; PULSE 61–92; RESP 16–27; TEMP 36.6; O2SAT 94–98
--- NOTE | 2018-08-18 20:27 | ED.GENADUL_ITS ---
Discharge Plan Disposition Patient Disposition: HOME Condition: Good Discharge Details Chief Complaint: Seizure Clinical Impression: Witnessed seizure-like activity Reason For Visit: JESSICA Primary Care Provider: Charanjit Maria ED Provider: Kenton vOalle Home Meds and New Rx's Prescriptions: Continued prenat.vits,chanel,aza-iyya-nhdns tablet 1 tab PO DAILY RF: 0 acetaminophen 325 mg Tablet 650 mg PO PRN PRNRF: 0 trazodone 100 mg Tablet 100 mg PO HS RF: 0 metformin 500 mg Tablet PO DAILY RF: 0 sertraline 25 mg Tablet 75 mg PO DAILY RF: 0 ProAir HFA 90 mcg/actuation Hfa Aerosol Inhaler 2 puff Inhalation Q4H PRN PRNQty: 8.5 RF: 0 Accu-Chek Adriana Plus test strp strip .ROUTE .MEDSUPPLY Qty: 100 RF: 0 Discharge Instructions Additional Instructions: Not clear whether you had seizures tonight or not. We will refer you to neurology for evaluation. In the meantime observe seizure precautions which include no driving, swimming, heights, dangerous activity. Follow-up with primary care next week. Return to ED if further neurologic activity or changes, feel unsafe, other concerns Referrals: [facility] [Provider Group] Charanjit Maria [Primary Care Provider] - Medical Decision Making Patient presenting with seizure-like activity. This is going to be a difficult case. She has a long psychiatric history so these could easily be pseudoseizures. She denies overdose/street drug, use but will need to keep this in mind. Also possibility of new onset seizures. Will get laboratory studies. Her vital signs are normal. Her neurological exam is normal. EKG is normal. Head CT done in fall 2017 was normal. Will repeat tonight though she denies headache, trauma, neuro changes. Patient has been fine here. Her mental status other than being a little sedated from the intranasal Versed is fine. She is neurologically intact. Her vital signs have been fine. She has been talking to her fianc? who we did let back in the room. Her sisters have been out talking to the Bronc Breaker stating that patient is trying to harm herself and that she overdosed. Patient denies this. Fianc? cannot corroborate the sister's story. He does state that the patient has said she wanted to harm herself a couple days ago. Patient has a history of same with visits to ED when she recants and goes home. I have seen her a number of times. I am also aware of her social situation where her sisters and family are trying to get her out of the house because they do not want her there. I did speak to her SPA ASSISTANT MANAGER worker. She is also aware of the patient's situation. If the patient is not actively suicidal and there is no evidence of overdose there is no psychiatric intervention necessary. Patient's head CT is negative. Her laboratory studies are unremarkable. Her drug screen is positive for benzodiazepines only. I think she is fine for discharge home. She will need referral to neurology. I am not starting her on antiepileptics. I have discussed seizure precautions with her. She does not drive. Return to ED for any further neurologic events, neurologic changes, feeling unsafe, other concerns. Medical Records Medical records reviewed: Yes I reviewed the patient's medical records. Lab Data Lab results reviewed: Yes I reviewed the patient's lab results. ECG Data Attestation: I personally reviewed and interpreted this ECG (s) as follows: Prior ECG tracings: not available for review Interpretation: Normal sinus rhythm at 85. Normal axis and intervals. No QT prolongation. No QRS prolongation. Nonspecific ST changes. Nothing acute. HPI General Mode of arrival: EMS . Date/Time Provider Initiated Documentation: 08/18/18 20:38 . Limitations to Documentation: altered mental status . Information obtained by: EMS and old records reviewed . HPI Narrative: Patient brought in by EMS for evaluation of possible seizures. Per EMS report family states that she slid off the couch and began shaking all over. When EMS arrived she was reportedly altered. She then began to have some extremity shaking. Blood glucose was fine. Painful stimulation did not stop the shaking. She ultimately received 10 mg of Versed intranasally. Abruptly shaking stopped and she came to relatively quickly. If she was postictal at all, EMS reports that it was a short period of time. She was fine during transport in. She stood and pivoted to move from stretcher to stretcher. Patient has a long psychiatric history. She denies any street drugs or overdose of medications tonight. She denies being suicidal. She reports having diarrhea today but nothing else. She states she does not know what happened tonight. She is groggy from the Versed. Related Data Home Medications Medication Instructions Recorded Confirmed trazodone 100 mg PO HS 03/18/18 07/03/18 metformin mg PO DAILY 04/17/18 07/03/18 sertraline 75 mg PO DAILY 04/17/18 07/03/18 acetaminophen 650 mg PO PRN PRN 05/07/18 07/03/18 ProAir HFA 2 puff INHALATION Q4H PRN PRN #8.5 05/11/18 07/03/18 g Accu-Chek Adriana Plus test strp #100 each 06/17/18 07/03/18 1 tab PO DAILY 06/27/18 07/03/18 vitamin,calcium,dxaswlmh-lpbc-zdzfh acid tablet Previous Rx's Medication Instructions Recorded ProAir HFA 2 puff INHALATION Q4H PRN PRN #8.5 05/11/18 g Accu-Chek Adriana Plus test strp #100 each 06/17/18 Allergies Allergy/AdvReac Type Severity Reaction Status Date / Time Penicillins Allergy Unknown Unverified 07/03/18 08:14 aspirin AdvReac Severe Wheezing Unverified 07/03/18 08:14 General JAMES: 2 Review of Systems Constitutional Denies chills, Denies fever(s), Denies headache(s) and Denies weakness Eyes Denies change in vision, Denies loss of vision and Denies eye pain ENT Denies headache(s), Denies nasal congestion, Denies neck pain, Denies sinus pressure and Denies sore throat Cardiovascular Denies chest pain, Denies syncope, Denies edema and Denies dyspnea Respiratory Denies cough and Denies dyspnea Gastrointestinal Denies abdominal pain, Reports diarrhea, Denies nausea and Denies vomiting Genitourinary Denies dysuria and Denies pelvic pain Musculoskeletal Denies back pain, Denies neck pain and Denies numbness Integumentary/Breasts Denies wounds Neurologic Denies syncope, Denies headache(s), Denies focal weakness, Denies loss of vision, Denies numbness, Reports seizure-like activity and Denies weakness Psychiatric Denies homicidal ideation and Denies suicidal ideation [facility] Medical History Diabetes type 2, uncontrolled (Chronic) Asthma Insomnia Schizophrenia Social History Smoking/Tobacco Use Status: Never Alcohol Intake: never Drug use: Current Sobriety Substance use type: does not use Do you feel safe at home: Yes Do you feel safe in your relationship?: Yes Exam Const General: cooperative, no acute distress and other (mildly sedated from Versed) Nutritional Appearance: obese morbidly obese Orientation: oriented x3 [facility] Head: normocephalic and atraumatic Eyes Pupils: PERRL EOM: EOM intact bilaterally Neck Neck: full ROM, trachea midline and supple Resp Effort & Inspection: normal respiratory effort Auscultation: clear to auscultation bilaterally Cardio Rate: regular rate Rhythm: regular rhythm Heart Sounds: S1 normal and S2 normal GI Palpation: soft and nontender Back/Spine/Pelvis Cervical Spine: cervical ROM normal and No cervical spinal tenderness Skin Trauma: no lacerations or abrasions Neuro General: oriented x3, moves all extremities, no focal motor deficits and CN's II-XI intact bilaterally Speech: speech normal Sensory Exam: no sensory deficits noted Extrem General: no clubbing, cyanosis or edema Psych Appearance: grossly normal Attitude: cooperative Thought Process: normal
[2018-08-18 21:08] LABS: Abs Immature Grans 0.03 k/cumm (0.0-0.09); Absolute Eosinophil Count 0.19 k/cumm (0.0-0.7); Absolute Lymphocyte Count 3.61 k/cumm (1.2-3.4); Basophils % 0.2; Eosinophils % 1.5; HCT 40.8 % (36.0-46.0); HGB 13.8 g/dL (12.0-15.5); Immature Grans % 0.2; Lymphocytes % 29.2; Mean Corp. HGB Concentration 33.8 g/dL (32.0-36.0); Mean Corpuscular Hemoglobin 30.7 pg (27.0-33.0); Mean Corpuscular Volume 90.9 fL (80-95); Mean Platelet Volume 10.7 fL (8.0-11.0); Monocytes % 6.6; Neutrophils % 62.3; Platelet Count 320 x1000/uL (130-400); RBC 4.49 m/cumm (4.00-5.20); RBC Distribution Width 12.9 % (11.7-14.6); White Blood Cell Count 12.35 k/cumm (4.4-10.8)
[2018-08-18 21:10] LABS: Absolute Basophil Count 0.02 k/cumm (0.0-0.2); Absolute Monocyte Count 0.82 k/cumm (0.11-0.7); Absolute Neutrophil Count 7.69 k/cumm (1.2-6.7)
[2018-08-18 21:35] LABS: ALT 93 U/L (12-78); AST 124 U/L (15-37); Albumin 3.5 g/dL (3.4-5.0); Alkaline Phosphatase 66 U/L (46-116); Anion Gap 9.4 mmol/L (3-11); BUN 7 mg/dL (7-18); Bilirubin, Total 0.3 mg/dL (0.2-1.0); CO2 27.6 mmol/L (21.0-32.0); CREATININE 0.72 mg/dL (0.55-1.02); Calcium 9.2 mg/dL (8.5-10.1); Chloride 100 mmol/L (98-107); Glucose 131 mg/dL (70-100); Potassium 3.8 mmol/L (3.5-5.1); Sodium 137 mmol/L (136-145); TSH 3.92 uIU/mL (0.358-3.74); Total Protein 8.8 g/dL (6.4-8.2)
[2018-08-18 21:37] LABS: *AMPHETAMINES SCREEN URINE Negative (Negative); *BARBITURATES SCREEN URINE Negative (Negative); *BENZODIAZEPINES SCREEN URINE POSITIVE (Negative); Cannabinoids THC Negative (Negative); Cocaine Screen,Urine Negative (Negative); METHADONE URINE SCREEN Negative (Negative); OPIATES URINE SCREEN Negative (Negative)
[2018-08-18 21:44] LABS: Salicylate < 2.8 mg/dL (2.8-20.0)
[2018-08-18 21:47] LABS: Tricyclic Antidepressants Negative (Negative)
--- NOTE | 2018-08-18 21:48 | DI.CT_ITS ---
SYMPTOM/DIAGNOSIS: SEIZURE NONCONTRAST HEAD CT: Comparison is made with 04/18/18. A noncontrast cranial CT was performed. The ventricular system is normal in appearance. There is no evidence of an intracranial mass lesion. There is no evidence of a subdural or epidural hematoma. No focal areas of decreased attenuation are seen. CONCLUSION: Normal noncontrast Cranial CT.
[2018-08-18 21:49] LABS: Acetaminophen < 2 ug/mL (10-30)
--- NOTE | 2018-08-18 22:09 | DI.VRAD_ITS ---
EXAM: CT Head Without Contrast EXAM DATE/TIME: 08/18/2018 9:30 PM CLINICAL HISTORY: 22 years old, female; Signs and symptoms; Other: Question seizure TECHNIQUE: Axial computed tomography images of the head/brain without contrast. Coronal and sagittal reformatted images were created and reviewed. COMPARISON: CT HEAD WO 04/18/2018 11:21 PM FINDINGS: Brain: Typical for age. No hemorrhage. No evidence of acute infarct. No mass. Ventricles: No ventriculomegaly. Bones/joints: Unremarkable. Sinuses: No sinus fluid. Mastoid air cells: Unremarkable. Soft tissues: Unremarkable. IMPRESSION: No acute intracranial abnormality. Dictated and Authenticated by: Galdino Chang MD. Ordering:BRODY Fung MD
[2018-08-18 22:12] LABS: ETHANOL BLOOD < 3.0 mg/dL (<3)
--- NOTE | 2018-08-21 10:05 | PDOC.ERCMPRO ---
Care Management Progress Note 08/21-Dr. Ovalle requested assistance with a Neurology f/u in 1-2 weeks for ?seizures. Referral faxed to [facility] Neurology this am.
--- NOTE | 2018-08-21 10:06 | CMPROGNOTE_ITS ---
Care Management Progress Note 08/21-Dr. Ovalle requested assistance with a Neurology f/u in 1-2 weeks for ?seizures. Referral faxed to [facility] Neurology this am.
== END 2018-08-18 22:57 | disposition home or self-care (01) ==
PROVIDERS: Emergency Provider Emergency Medicine; PCP Specialist/Technologist Athletic Trainer
DX: R56.9 Unspecified convulsions (principal); E11.9 Type 2 diabetes mellitus without complications; Z79.84 Long term (current) use of oral hypoglycemic drugs
CPT/HCPCS: 36415; 80053; 80307; 81025; 93005; 99285; 70450; 80320; 80329; 83735; 84443; 85025; 93010

== ENCOUNTER 2018-08-21 19:17 | Emergency (ER) | payer MEDICAID, SELFPAY ==
[2018-08-21 19:30] VITALS: BP 166/91; PULSE 74; RESP 18; TEMP 36.8; O2SAT 96
--- NOTE | 2018-08-21 19:31 | ED.GENADUL_ITS ---
Discharge Plan Disposition Patient Disposition: [facility] Condition: Stable Discharge Details Chief Complaint: PsychEval Clinical Impression: Suicidal ideation Primary Care Provider: Charanjit Maria ED Provider: Jaiden Burnett Home Meds and New Rx's Prescriptions: No Action acetaminophen 325 mg Tablet 650 mg PO PRN PRNRF: 0 gabapentin 300 mg Capsule 300 mg PO TID RF: 0 hydroxyzine HCl 25 mg Tablet 25 mg PO TID PRNRF: 0 meclizine 12.5 mg Tablet 12.5 mg PO TID PRN PRNRF: 0 docusate sodium 100 mg Capsule 100 mg PO HS RF: 0 ondansetron 4 mg Tablet,Disintegrating 4 mg PO QID PRN PRNRF: 0 trazodone 100 mg Tablet 100 mg PO HS RF: 0 metformin 500 mg Tablet 500 mg PO BID RF: 0 sertraline 25 mg Tablet 150 mg PO DAILY RF: 0 albuterol sulfate [ProAir HFA] 90 mcg/actuation Hfa Aerosol Inhaler 2 puff Inhalation Q4H PRN PRNQty: 8.5 RF: 0 Accu-Chek Adriana Plus test strp strip .ROUTE .MEDSUPPLY Qty: 100 RF: 0 Discharge Data Discharge Date/Time-TO BE ENTERED AT DEPARTURE: 08/22/18 01:40 Medical Decision Making <Kenton Ovalle MD - Last Filed: 08/25/18 20:17> Patient is presenting for mental health evaluation. Patient was seen by me Tuesday for seizure-like activity. She has had no further events similar to that. She has been under a great deal of stress today because of the of her half brother. She now reports hearing voices and feeling suicidal and homicidal. She denies any ingestions. She did not harm herself. She has been with her sisters who brought her in for evaluation. I do not feel that she clinically warrants repeat laboratory studies. Her workup Tuesday was completely unremarkable. Her test was negative. I will repeat urine drug screen. She was positive for benzodiazepines Tuesday but that is likely because she received Versed for the seizure-like activity. I will check a fingerstick. Mental health has been called in. They have evaluated the patient. Per mental health worker none of the psychiatric facilities that she has contacted will accept the labs from Tuesday. They want a repeat full set of labs sent before they would even consider her for admission. As her provider I do not feel that this is necessary, I feel she is medically cleared, however, in order to proceed with getting her placed I will order repeat labs. She does have a CPSO assigned. A care plan will be formulated. She will likely be here overnight. Patient's labs continued to be unremarkable. Her liver function is baseline and slightly elevated. Potassium a little low at 3.1 and will replace. Patient signed out to Dr. Burnett. A hiatal has been done and a care plan is in place. CPSO remains. <Jaiden Burnett MD - Last Filed: 08/22/18 00:29> Pt has remained calm and cooperative during stay here, staying in the ED until [facility] bed placement can be found. No beds available here so will remain in the ED. Spoke to resident physician Dr. Agosto and they are going to accept the pt. Accepting provider is Dr. Jackson HPI <Kenton Ovalle MD - Last Filed: 08/25/18 20:17> General Mode of arrival: ambulatory . Date/Time Provider Initiated Documentation: 08/21/18 19:29 . Limitations to Documentation: no limitations . Information obtained by: patient and family . HPI Narrative: Patient presenting with her half-sisters for evaluation of suicidal/homicidal thoughts and hearing voices. Patient has a long history of psychiatric problems. Patient was seen by me Placido night for possible seizure. Since that time she has had no further seizure-like activity. She has been compliant with medications. Her half brother apparently overnight which has caused a great deal of stress. This evening she began to hear voices telling her to harm herself. She tried to find some knives but her sisters had already locked them up. She has not missed any doses of medications. She did not take any medications or drugs she was not supposed to. Her sisters brought her in for evaluation. She has previously heard voices. She has had multiple hospitalizations. She is followed by a DISTRIBUTION SALES REPRESENTATIVE whom she reports talking to earlier today. Related Data Home Medications Medication Instructions Recorded Confirmed trazodone 100 mg PO HS 03/18/18 08/24/18 metformin 500 mg PO BID 04/17/18 08/24/18 sertraline 150 mg PO DAILY 04/17/18 08/24/18 acetaminophen 650 mg PO PRN PRN 05/07/18 08/24/18 albuterol sulfate [ProAir HFA] 2 puff INHALATION Q4H PRN PRN #8.5 05/11/18 08/24/18 g Accu-Chek Adriana Plus test strp #100 each 06/17/18 07/03/18 docusate sodium 100 mg PO HS 08/24/18 08/24/18 gabapentin 300 mg PO TID 08/24/18 08/24/18 hydroxyzine HCl 25 mg PO TID PRN 08/24/18 08/24/18 meclizine 12.5 mg PO TID PRN PRN 08/24/18 08/24/18 ondansetron 4 mg PO QID PRN PRN 08/24/18 08/24/18 Previous Rx's Medication Instructions Recorded albuterol sulfate [ProAir HFA] 2 puff INHALATION Q4H PRN PRN #8.5 05/11/18 g Accu-Chek Adriana Plus test strp #100 each 06/17/18 Allergies Allergy/AdvReac Type Severity Reaction Status Date / Time Penicillins Allergy Unknown Unverified 08/24/18 15:46 aspirin AdvReac Severe Wheezing Unverified 08/24/18 15:46 General JAMES: 3 Review of Systems <Kenton Ovalle MD - Last Filed: 08/25/18 20:17> Constitutional Denies fever(s), Denies headache(s) and Denies weakness ENT Denies otalgia, Denies facial pain, Denies headache(s) and Denies neck pain Cardiovascular Denies chest pain, Denies syncope and Denies dyspnea Respiratory Denies cough and Denies dyspnea Gastrointestinal Denies abdominal pain, Denies diarrhea, Denies nausea and Denies vomiting Musculoskeletal Denies abnormal gait, Denies back pain, Denies neck pain and Denies numbness Integumentary/Breasts Denies rash Neurologic Denies abnormal speech, Denies abnormal gait, Denies syncope, Denies headache(s), Denies numbness, Denies sensory deficit and Denies weakness Psychiatric Reports auditory hallucinations, Reports homicidal ideation and Reports suicidal ideation PFS <Kenton Ovalle MD - Last Filed: 08/25/18 20:17> Social History Smoking/Tobacco Use Status: Current every day Tobacco Type: cigarettes Smoking cigarettes per day: 10 Years smoked: 5 Tobacco: How many years used: 5 Alcohol Intake: current Alcohol Intake frequency: holidays/special occasions only Drug use: Never Substance use type: does not use Do you feel safe at home: Yes Do you feel safe in your relationship?: Yes Additional Social history: Lives in a house with her sister, brother and [id number], and fianc?. Reports daily use of tobacco, but denies alcohol or illicit substance abuse. Exam <Kenton Ovalle MD - Last Filed: 08/25/18 20:17> Const General: cooperative and comfortable Nutritional Appearance: obese morbidly obese Orientation: alert and oriented x3 HENMT Head: normocephalic and atraumatic Neck Neck: trachea midline and supple Resp Effort & Inspection: normal respiratory effort Auscultation: clear to auscultation bilaterally Cardio Rate: regular rate Rhythm: regular rhythm Heart Sounds: S1 normal and S2 normal GI Inspection: normal to inspection Palpation: soft, not firm and nontender Skin Rashes: no rashes Neuro General: alert, oriented x3, gait normal, no focal motor deficits, CN's II-XI intact bilaterally and not confused Cognition: normal cognition Speech: speech normal Extrem General: normal to inspection and full ROM Psych Appearance: grossly normal Mental Status: mental status grossly normal Speech and Movement: speech and movement normal Attitude: cooperative Thought Content: hallucinations auditory, homicidality and suicidality Sign Out <Kenton Ovalle MD - Last Filed: 08/25/18 20:17> Sign Out Data: Sign Out Comment: Signed out to Dr. Felipe pearce pending voluntary psychiatric placement. Last updated by Kenton Ovalle MD at 08/21/18 23:14
--- NOTE | 2018-08-21 20:09 | PDOC.MHCN ---
Date of service: 08/21/18 Time of Service: 20:38 Mental Health Crisis Note Precipitating Factors Mary arrived at ED with her two sisters Guillermo and Mariah. Talia had been hearing voices that were controlling her thoughts, telling her she was worthless, she should kill others then kill herself. She had been looking for knives in the home but sisters hid them and brought her here. She had been her recently on Tuesday night but sent home and follow up care was received by FRUIT LOADER to check on her safety. She is also dealing with the of a half brother. She has not harmed herself and the last major episode her sisters report was in May. Disposition BEHAVIOR: Her behavior is calm and cooperative though she reports an anxiety level of 9. Her sisters often answer for her. She is alert and oriented. EYE CONTACT: She makes excellent eye contact . MOOD: Her mood is depressed. she is worried about the voices. AFFECT: Her affect is flat. APPETITE: She is an obese 22 yo and reports her appetitie is fine. Her sisters say her appetite has dropped but she says not. SLEEP(trouble falling/staying asleep: She rports her sleep is fine without dreams or nightmares. Plan She was initiallly seen by Dr. Ovalle who had contact with her in the ER Tuesday. She made it back home and FRUIT LOADER followed up with her over the weekend. Tonight she is unwilling and unable to prepare a safety contract, her sisters feel she is not safe at home and further care is needed. She is requesting psychiatric placement. The process of contacting hospitals and sending referrals will be done, then arrangements will be made as required. Signature Clinician's Name/Title: Vi Pacheco, [facility] Emergency Services Clinician
--- NOTE | 2018-08-21 20:50 | PDOC.MHCN_ITS ---
Date of service: 08/21/18 Time of Service: 20:38 Mental Health Crisis Note Precipitating Factors Mary arrived at ED with her two sisters Guillermo and Mariah. Talia had been hearing voices that were controlling her thoughts, telling her she was worthless, she should kill others then kill herself. She had been looking for knives in the home but sisters hid them and brought her here. She had been her recently on Tuesday night but sent home and follow up care was received by MAINTENANCE REPRESENTATIVE to check on her safety. She is also dealing with the of a half brother. She has not harmed herself and the last major episode her sisters report was in May. Disposition BEHAVIOR: Her behavior is calm and cooperative though she reports an anxiety level of 9. Her sisters often answer for her. She is alert and oriented. EYE CONTACT: She makes excellent eye contact . MOOD: Her mood is depressed. she is worried about the voices. AFFECT: Her affect is flat. APPETITE: She is an obese 22 yo and reports her appetitie is fine. Her sisters say her appetite has dropped but she says not. SLEEP(trouble falling/staying asleep: She rports her sleep is fine without dreams or nightmares. Plan She was initiallly seen by Dr. Ovalle who had contact with her in the ER Tuesday. She made it back home and MAINTENANCE REPRESENTATIVE followed up with her over the weekend. Tonight she is unwilling and unable to prepare a safety contract, her sisters feel she is not safe at home and further care is needed. She is requesting psychiatric placement. The process of contacting hospitals and sending referrals will be done, then arrangements will be made as required. Signature Clinician's Name/Title: Vi Pacheco, [facility] Emergency Services Clinician
[2018-08-21 22:02] LABS: Abs Immature Grans 0.03 k/cumm (0.0-0.09); Absolute Basophil Count 0.03 k/cumm (0.0-0.2); Absolute Eosinophil Count 0.38 k/cumm (0.0-0.7); Absolute Lymphocyte Count 4.17 k/cumm (1.2-3.4); Absolute Monocyte Count 0.94 k/cumm (0.11-0.7); Absolute Neutrophil Count 5.27 k/cumm (1.2-6.7); Basophils % 0.3; Eosinophils % 3.5; HCT 38.2 % (36.0-46.0); Immature Grans % 0.3; Lymphocytes % 38.5; Mean Corpuscular Hemoglobin 30.7 pg (27.0-33.0); Mean Corpuscular Volume 90.3 fL (80-95); Mean Platelet Volume 10.8 fL (8.0-11.0); Monocytes % 8.7; Neutrophils % 48.7; Platelet Count 278 x1000/uL (130-400); RBC 4.23 m/cumm (4.00-5.20); White Blood Cell Count 10.82 k/cumm (4.4-10.8)
[2018-08-21 22:14] LABS: ALT 94 U/L (12-78); AST 126 U/L (15-37); Albumin 3.2 g/dL (3.4-5.0); Alkaline Phosphatase 67 U/L (46-116); Anion Gap 8.6 mmol/L (3-11); BUN 7 mg/dL (7-18); Bilirubin, Total 0.2 mg/dL (0.2-1.0); CO2 26.4 mmol/L (21.0-32.0); Calcium 9.2 mg/dL (8.5-10.1); Chloride 102 mmol/L (98-107); Glucose 139 mg/dL (70-100); Potassium 3.1 mmol/L (3.5-5.1); Sodium 137 mmol/L (136-145); Total Protein 7.9 g/dL (6.4-8.2)
[2018-08-21 22:29] LABS: ETHANOL BLOOD 11.9 mg/dL (<3)
[2018-08-21 22:32] LABS: Acetaminophen < 2 ug/mL (10-30); Salicylate < 2.8 mg/dL (2.8-20.0)
--- NOTE | 2018-08-21 23:21 | CMPROGNOTE_ITS ---
Care Management Progress Note Talia has been seen in the ED 12 times in the past 6 months. The most recent was on Tuesday08/18/18. Joann Melgar states she is hearing voices directing her to kill other people and then kill herself because she is worthless. Did not feel safe to stay at home with her family and would not agree to a safety contract. States she would like to get help. She is currently a client of [facility] in the [employer] TECHNICIAN Program. VOLUNTARY FOR INPATIENT PSYCHIATRIC STABILIZATION. Talia has been lying on her bed facing the wall but turns over to answer questions. Cooperative at all times since arriving and able to clearly articulate her needs. Huddle Participants: Genny Malcolm, RN; Cecilia, Occupational Health And Safety Adviser; Vi [facility]; RAI Rosales SAFETY PLAN: ED Room #9 AL Time and Date: 08/21/18 22:30 Safety plan has been established with patient, and care team, to adhere to patient goals, identify restrictions based on behavioral status, address nutrition, and determine allowed personal belongings, tools for hygiene and personal care. Determine level of activity including ambulation, level of supervision, visitors, and determine privileges based on behaviors and level of engagement by pt. 1. Will remain on suicide precautions and in her own T-Shirt and sweatpants. (Has been wanded Paper scrubs not available in her size). 2. Will remain in room under direct supervision of one-on-one staff at all times provided by CPSO (DESIREE, HUSAM property maintenance supervisor). 3. May have paper cups, plates, finger foods as well as a metal spoon with which to eat meals. [facility] staff will be responsible for accounting of utensils after meals. 4. Follow [facility] Management of the Admitted Behavioral Health Patient policy printed and attached to the safety plan in physical chart. 5. Comfort bath system only. 6. No personal belongings 7. May have visitors at patient discretion. 8. May use cell phone 9. Staff escort to the bathroom 10. Transition from the ED to the M/S Unit will be coordinated by the live in housekeeper based on staffing and bed availability. 11. Voluntary admission status. If Talia wishes to leave the hospital the [facility] Etl Programmer must be contacted to re-evaluate her prior to her exit from the building. [facility] will be coordinating placement at inpatient facility, last updates included the following: Referrals sent to [facility], [place], [facility] and [place]. Patient is currently voluntarily at [facility] and seeking inpatient admission when a bed becomes available. [facility] Frontline Etl Programmer will continue seeking placement. Please contact the Professional Development Manager Apron Cleaner ([phone]) and [facility] Etl Programmer ([phone]) for any needed changes in the Safety Plan. Safety plan has been provided to interdepartmental care team including Clinical Coordinator , Nursing Security Systems Administrator.
[2018-08-22] MEDS: Potassium Chloride 20 MEQ TABCR 40 MEQ PO (00:10)
--- NOTE | 2018-08-22 00:18 | NUR.NOTE ---
Nursing Note: Pt up to bathroom, urine sample obtained for UDS & UPT. Pt is appropriate, cooperative, pleasant. CPSO present. Pt c/o ear pain and requested MD to take a look- MD made aware. Will CTM.
[2018-08-22 00:33] VITALS: BP 135/88; PULSE 76; RESP 20; TEMP 36.7; O2SAT 92
[2018-08-22 00:33] LABS: *AMPHETAMINES SCREEN URINE Negative (Negative); *BARBITURATES SCREEN URINE Negative (Negative); *BENZODIAZEPINES SCREEN URINE POSITIVE (Negative); Cannabinoids THC Negative (Negative); Cocaine Screen,Urine Negative (Negative); METHADONE URINE SCREEN Negative (Negative); OPIATES URINE SCREEN Negative (Negative); Tricyclic Antidepressants Negative (Negative)
== END 2018-08-22 01:40 | disposition short-term general hospital (02) ==
PROVIDERS: Emergency Medicine; Emergency Provider Emergency Medicine; PCP Specialist/Technologist Athletic Trainer
DX: R45.851 Suicidal ideations (principal); R45.850 Homicidal ideations; F43.21 Adjustment disorder with depressed mood
CPT/HCPCS: 36415; 36416; 80053; 80307; 82962; 99285; 80320; 80329; 85025; 99283

== ENCOUNTER 2018-08-24 15:32 | Observation (INO) | payer MEDICAID, SELFPAY ==
[2018-08-24 15:33] VITALS: BP 162/100; PULSE 84; RESP 12; TEMP 36.9; O2SAT 96
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
[2018-08-24 16:30] LABS: Abs Immature Grans 0.01 k/cumm (0.0-0.09); Absolute Basophil Count 0.02 k/cumm (0.0-0.2); Absolute Eosinophil Count 0.33 k/cumm (0.0-0.7); Absolute Lymphocyte Count 3.46 k/cumm (1.2-3.4); Absolute Monocyte Count 0.63 k/cumm (0.11-0.7); Absolute Neutrophil Count 5.58 k/cumm (1.2-6.7); Basophils % 0.2; Eosinophils % 3.3; HCT 41.8 % (36.0-46.0); HGB 13.9 g/dL (12.0-15.5); Immature Grans % 0.1; Lymphocytes % 34.5; Mean Corp. HGB Concentration 33.3 g/dL (32.0-36.0); Mean Corpuscular Hemoglobin 30.2 pg (27.0-33.0); Mean Corpuscular Volume 90.9 fL (80-95); Mean Platelet Volume 11.3 fL (8.0-11.0); Monocytes % 6.3; Neutrophils % 55.6; Platelet Count 275 x1000/uL (130-400); White Blood Cell Count 10.03 k/cumm (4.4-10.8)
[2018-08-24 16:42] LABS: ALT 92 U/L (12-78); AST 94 U/L (15-37); Albumin 3.4 g/dL (3.4-5.0); Alkaline Phosphatase 71 U/L (46-116); Anion Gap 11.6 mmol/L (3-11); BUN 8 mg/dL (7-18); Bilirubin, Total 0.2 mg/dL (0.2-1.0); CO2 25.4 mmol/L (21.0-32.0); Calcium 9.2 mg/dL (8.5-10.1); Chloride 101 mmol/L (98-107); Glucose 166 mg/dL (70-100); Potassium 3.6 mmol/L (3.5-5.1); Sodium 138 mmol/L (136-145); TSH 1.46 uIU/mL (0.358-3.74); Total Protein 8.1 g/dL (6.4-8.2)
--- NOTE | 2018-08-24 17:05 | NUR.NOTE ---
patient conversing with cpso. advised cpso that voices were getting louder in her head. advised her that she is in a safe, controlled atmosphere and we are closely monitoring her.
--- NOTE | 2018-08-24 17:54 | NUR.NOTE ---
patient has been appropriate. has been with patient since approx 1699.
--- NOTE | 2018-08-24 18:36 | PDOC.MHCN ---
Date of service: 08/24/18 Time of Service: 18:37 Mental Health Crisis Note Presenting Issue How did you arrive at the ED and why did you come: A arrived to the ED via ambulance. A reported that she is hearing voices that are getting worse and I am about to write goodbye letters. A reported that she has had these voices for 3 days. She said she was at [facility] and was not there long enough (2 days) and was told she was going home. She said she was home for 2 hours before calling the ambulance. She said her family does not feel safe with me being home and they can not watch me. A lives in a home with 4 adult people who she reports are not willing to watch her. She said she feels she is going to wake up and do something to hurt herself or her family because but did not mention voices in this sentence. 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 Precipitating Factors A stated that she is getting to the point of writing goodbye letters. Eugenia is not willing to contract for any safety. It as written in her d/c paperwork that her step brother last weekend and this was a stressor. Eugenia does not feel she was in the hospital long enough. This clinician talked in depth with Eugenia about whether her voices were actual voices or just her thoughts. She was able to admit that they were her thoughts. I explained that the reason I felt they were thoughts was because she is able to have a detailed conversation with me and had specific detail that someone who was struggling with auditory hallucinations would struggle with. This clinician explained to A that I do not believe she needs to be in a hospital. I explained that being in a hospital setting with people who do not know her is not therapeutic. Disposition BEHAVIOR: A is cooperative for the most part. She is not willing to engage in any kind of safety plan. No behavior issues. EYE CONTACT: engaged and appropriate MOOD: presents as sad and soft spoken. AFFECT: Normal most of the time tearful when being told she was not going to a hospital. Presents also as sad. APPETITE: Normal and hungry eating dinner at time of this report. SLEEP(trouble falling/staying asleep: Pt reported that last night she woke up but was told by nurses seh could not take any meds and she did fall back asleep. [facility] [place] is willing to accept A as they had another person back out of admission. 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
--- NOTE | 2018-08-24 18:59 | NUR.NOTE ---
Nursing Note: recieved report from tb nurse for the pt
--- NOTE | 2018-08-24 19:10 | PDOC.MHCN_ITS ---
Date of service: 08/24/18 Time of Service: 18:37 Mental Health Crisis Note Presenting Issue How did you arrive at the ED and why did you come: A arrived to the ED via ambulance. A reported that she is hearing voices that are getting worse and I am about to write goodbye letters. A reported that she has had these voices for 3 days. She said she was at [facility] and was not there long enough (2 days) and was told she was going home. She said she was home for 2 hours before calling the ambulance. She said her family does not feel safe with me being home and they can not watch me. A lives in a home with 4 adult people who she reports are not willing to watch her. She said she feels she is going to wake up and do something to hurt herself or her family because but did not mention voices in this sentence. 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 Precipitating Factors A stated that she is getting to the point of writing goodbye letters. Eugenia is not willing to contract for any safety. It as written in her d/c paperwork that her step brother last weekend and this was a stressor. Eugenia does not feel she was in the hospital long enough. This clinician talked in depth with Eugenia about whether her voices were actual voices or just her thoughts. She was able to admit that they were her thoughts. I explained that the reason I felt they were thoughts was because she is able to have a detailed conversation with me and had specific detail that someone who was struggling with auditory hallucinations would struggle with. This clinician explained to A that I do not believe she needs to be in a hospital. I explained that being in a hospital setting with people who do not know her is not therapeutic. Disposition BEHAVIOR: A is cooperative for the most part. She is not willing to engage in any kind of safety plan. No behavior issues. EYE CONTACT: engaged and appropriate MOOD: presents as sad and soft spoken. AFFECT: Normal most of the time tearful when being told she was not going to a hospital. Presents also as sad. APPETITE: Normal and hungry eating dinner at time of this report. SLEEP(trouble falling/staying asleep: Pt reported that last night she woke up but was told by nurses seh could not take any meds and she did fall back asleep. [facility] is willing to accept A as they had another person back out of admission. 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
--- NOTE | 2018-08-24 20:47 | PDOC.ERCMPRO ---
Care Management Progress Note Talia has been seen in the ED 13 times in the past 6 months. The most recent was on Tuesday08/21/18 with transfer to [facility] for inpatient psychiatric treatment. She was discharged home this morning. Joann Melgar states she is hearing voices again directing her to kill herself because she is worthless. Attempting to scratch open her arm with the ID band. Did not feel safe to stay at home with her family and would not agree to a safety contract. Family does not feel they can take care of her. She is currently a client of [facility] in the AIR SUPPORT CONTROL OFFICER Program and her worker will be in tomorrow to help find an alternative setting/crisis bed. VOLUNTARY FOR CIRISIS BED PLACEMENT AND STABILIZATION. Cooperative at all times since arriving and able to clearly articulate her needs. Huddle Participants: Dr. Moore, Beverley, RN; Lyn, Collector Of Internal Revenue; Neli [facility]; RAI Rosales SAFETY PLAN: ED Room #5 AL Time and Date: 08/24/18 20:30 Safety plan has been established with patient, and care team, to adhere to patient goals, identify restrictions based on behavioral status, address nutrition, and determine allowed personal belongings, tools for hygiene and personal care. Determine level of activity including ambulation, level of supervision, visitors, and determine privileges based on behaviors and level of engagement by pt. 1. Will remain in her own T-Shirt and sweatpants. (Has been wanded Paper scrubs not available in her size). 2. Will remain in room under direct supervision of one-on-one staff at all times provided by CPSO (DESIREE, JIG GRINDER senior packaging engineer). 3. May have paper cups, plates, finger foods. No spoon at this time. 4. Follow [facility] Management of the Admitted Behavioral Health Patient policy printed and attached to the safety plan in physical chart. 5. Comfort bath system only. 6. No personal belongings 7. May have visitors at patient discretion. 8. May use cell phone 9. Staff escort to the bathroom 10. Transition from the ED to the M/S Unit will be coordinated by the power house control room operator based on staffing and bed availability. 11. Voluntary admission status. If Talia wishes to leave the hospital the [facility] Silver Plater must be contacted to re-evaluate her prior to her exit from the building. [facility] will be coordinating placement at crisis bed facility. There were no beds available tonight. Patient is currently voluntarily at [facility] and seeking placement at a crisis bed. [facility] Frontline Silver Plater, AIR SUPPORT CONTROL OFFICER property worker will continue seeking placement. Please contact the Commissions Manager Command And Control Specialist ([phone]) and [facility] Silver Plater ([phone]) for any needed changes in the Safety Plan. Safety plan has been provided to interdepartmental care team including Clinical Coordinator , Nursing Account Services Representative.
--- NOTE | 2018-08-24 20:57 | CMPROGNOTE_ITS ---
Care Management Progress Note Talia has been seen in the ED 13 times in the past 6 months. The most recent was on Tuesday08/21/18 with transfer to [facility] for inpatient psychiatric treatment. She was discharged home this morning. Joann Melgar states she is hearing voices again directing her to kill herself because she is worthless. Attempting to scratch open her arm with the ID band. Did not feel safe to stay at home with her family and would not agree to a safety contract. Family does not feel they can take care of her. She is currently a client of [facility] in the [employer] Program and her worker will be in tomorrow to help find an alternative setting/crisis bed. VOLUNTARY FOR CIRISIS BED PLACEMENT AND STABILIZATION. Cooperative at all times since arriving and able to clearly articulate her needs. Huddle Participants: Dr. Moore, Beverley, RN; Lyn, Commercial Lines Account Assistant; Neli [facility]; RAI Rosales SAFETY PLAN: ED Room #5 AL Time and Date: 08/24/18 20:30 Safety plan has been established with patient, and care team, to adhere to patient goals, identify restrictions based on behavioral status, address nutrition, and determine allowed personal belongings, tools for hygiene and personal care. Determine level of activity including ambulation, level of supervision, visitors, and determine privileges based on behaviors and level of engagement by pt. 1. Will remain in her own T-Shirt and sweatpants. (Has been wanded Paper scrubs not available in her size). 2. Will remain in room under direct supervision of one-on-one staff at all times provided by [employer] (DESIREE, THRESHING DEPARTMENT SUPERVISOR integrated logistics programs director). 3. May have paper cups, plates, finger foods. No spoon at this time. 4. Follow [facility] Management of the Admitted Behavioral Health Patient policy printed and attached to the safety plan in physical chart. 5. Comfort bath system only. 6. No personal belongings 7. May have visitors at patient discretion. 8. May use cell phone 9. Staff escort to the bathroom 10. Transition from the ED to the M/S Unit will be coordinated by the boilerhouse mechanic based on staffing and bed availability. 11. Voluntary admission status. If Talia wishes to leave the hospital the [facility] Budget Examiner must be contacted to re-evaluate her prior to her exit from the building. [facility] will be coordinating placement at crisis bed facility. There were no beds available tonight. Patient is currently voluntarily at [facility] and seeking placement at a crisis bed. [facility] Frontline Budget Examiner, [employer] workers compensation claims analyst will continue seeking placement. Please contact the Ager Operator Activity Director ([phone]) and [facility] Budget Examiner ([phone]) for any needed changes in the Safety Plan. Safety plan has been provided to interdepartmental care team including Clinical Coordinator , Nursing Legislative Advocate.
--- NOTE | 2018-08-24 21:07 | NUR.NOTE ---
Nursing Note: at about 1945 cpso reports to mme that pt was scratching her wrist with the plastic bracelet
--- NOTE | 2018-08-25 06:35 | NUR.NOTE ---
Nursing Note: at 0230 this am gave pt paper pants and top her pants were solid
[2018-08-25] MEDS: Gabapentin 300 MG CAP PO ×2 (09:09→18:06)
[2018-08-25] MEDS: Sertraline 50 MG TAB 150 MG PO (09:09)
[2018-08-25] MEDS: metFORMIN 500 MG TAB PO ×2 (09:09→18:07)
--- NOTE | 2018-08-25 09:13 | NUR.NOTE ---
Nursing Note: Patient continues her menses, requires frequent clothing changes and needs encouragement to maintain personal hygiene. Pt's bgl checked post meal, given her AM medications.
--- NOTE | 2018-08-25 09:36 | PDOC.ERCMPRO ---
Care Management Progress Note 08/25-This CM reached out to facilities for placement. [facility]-phone [phone] Spoke with Jessie. Jessie states that they have one bed on the emerging adult unit and is willing to accept referral. Referral faxed at 0915 this am. [facility] -[phone], Spoke with Cj. Cj states there are no beds available. [phone], spoke with Rick, no beds today. [phone], Spoke with Jacqueline, no beds today. Qwglpfx-[phone], spoke with Gloria, no beds and their ED is full. [phone], Spoke with Mer, no beds. Juanis (Care Bed, [facility])-[phone] phone and [phone] fax. Parth from [facility] spoke with them and they have care beds available and are willing to accept referral which was faxed. Patient is being admitted to the med/surg floor. 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 Parth from [facility] stated that he would come back in if Talia becomes more acute or if a bed becomes available. This CM reported off to inpatient care management. Dr. Burnett is aware of the above.
--- NOTE | 2018-08-25 10:09 | CMPROGNOTE_ITS ---
Care Management Progress Note 08/25-This CM reached out to facilities for placement. [facility] [phone] Spoke with Jessie. Jessie states that they have one bed on the emerging adult unit and is willing to accept referral. Referral faxed at 0915 this am. [facility] -[phone], Spoke with Cj. Cj states there are no beds available. [phone], spoke with Rick, no beds today. [phone], Spoke with Jacqueline, no beds today. [id number]-[phone], spoke with Gloria, no beds and their ED is full. Gfunvit-[phone], Spoke with Mer, no beds. Juanis (Care Bed, [facility])-[phone] phone and [phone] fax. Parth from [facility] spoke with them and they have care beds available and are willing to accept referral which was faxed. Patient is being admitted to the med/surg floor. 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 Parth from [facility] stated that he would come back in if Talia becomes more acute or if a bed becomes available. This CM reported off to inpatient care management. Dr. Burnett is aware of the above.
--- NOTE | 2018-08-25 10:55 | W.PM.HP.N ---
Date of service: 08/25/18 Time of Service: 10:55 Assessment and Plan (1) Suicidal ideation: Current visit: Yes Status: Acute Unsure if the patient is truly suicidal, she is currently denying any plans to harm herself or any suicidality, rather that she is experiencing command auditory hallucinations that are instructing her to commit suicide. Regardless. Patient is being evaluated by mental health and care management with plans for referral to admit to an inpatient psychiatric unit. Please note that she was just discharged yesterday from [facility] for the same complaint. Following her admission there her SSRI therapy was increased and gabapentin was added. The thought of using an antipsychotic such as Ariprazole was deemed risky secondary to the patient's elevated blood sugar and diagnosis of DM, given her relatively young age. For now we will continue on with her home regimen of gabapentin, sertraline, and nightly trazodone. We will also admit with one-to-one observer with an inpatient safety plan in place. (2) Tobacco abuse: Current visit: Yes Status: Chronic NRT in the form of Nicotrol. (3) Depression: Current visit: Yes Status: Chronic Treatment as above. (4) Diabetes type 2, uncontrolled: Current visit: No Status: Chronic Noted. Will hold metformin as an inpatient, and cover with sliding scale coverage. (5) DVT prophylaxis: Current visit: Yes Status: Acute SC Lovenox. History of Present Illness Chief Complaint: Hearing voices Narrative: 22-year-old woman with a past medical history significant for borderline personality disorder and depression, being admitted from [facility] Emergency Department on 08/25 with a diagnosis of suicidal ideation. Ms. Joaquin has a prior medical history significant for borderline personality disorder, adjustment disorder, depression, and anxiety. She also has a prior history of syncope for which she was hospitalized in 2017, asthma, tobacco abuse, and mention of prescription drug abuse in the past by history. The patient was just admitted at [facility] inpatient psychiatric unit, discharged the day prior to her admission here with the same complaints. She was noted to be in a worsening state of depression due to a recent in her family, and reported command auditory hallucinations instructing her to harm herself and to commit suicide. She was fully evaluated by psychiatry while inpatient at [facility], noted that her auditory hallucinations were not a psychiatric disorder, rather likely a stress response. And the time of her discharge she was said to be no longer suicidal. However, upon her discharge she continued to hear these voices and presented back to the emergency department. However, she has no plan, and is denying any intent to harm herself or others. In fact she reports not being suicidal, instead seeking help because her voices continue on. Mental health has evaluated her, and she is currently being admitted while awaiting an inpatient psychiatric bed. Review of Systems Review of Systems All systems reviewed & are unremarkable except as noted in HPI and below PFSH Medical History History of prescription drug abuse (Chronic) Tobacco abuse (Chronic) Asthma (Chronic) Suicidal ideation (Acute) Adjustment disorder (Acute) Depression (Chronic) History of syncope (Chronic) Borderline personality disorder (Chronic) Morbid obesity (Chronic) Diabetes type 2, uncontrolled (Chronic) Asthma Insomnia Schizophrenia Social History Smoking/Tobacco Use Status: Current every day Tobacco Type: cigarettes Smoking cigarettes per day: 10 Years smoked: 5 Tobacco: How many years used: 5 Alcohol Intake: current Alcohol Intake frequency: holidays/special occasions only Drug use: Never Substance use type: does not use Do you feel safe at home: Yes Do you feel safe in your relationship?: Yes Additional Social history: Lives in a house with her sister, brother and [id number], and fianc?. Reports daily use of tobacco, but denies alcohol or illicit substance abuse. Meds Home Medications Medication Instructions Recorded Confirmed Type trazodone 100 mg PO HS 03/18/18 08/24/18 History metformin 500 mg PO BID 04/17/18 08/24/18 History sertraline 150 mg PO DAILY 04/17/18 08/24/18 History acetaminophen 650 mg PO PRN PRN 05/07/18 08/24/18 History albuterol sulfate [ProAir HFA] 2 puff INHALATION Q4H PRN PRN #8.5 05/11/18 08/24/18 Rx g Accu-Chek Adriana Plus test strp #100 each 06/17/18 07/03/18 Rx docusate sodium 100 mg PO HS 08/24/18 08/24/18 History gabapentin 300 mg PO TID 08/24/18 08/24/18 History hydroxyzine HCl 25 mg PO TID PRN 08/24/18 08/24/18 History meclizine 12.5 mg PO TID PRN PRN 08/24/18 08/24/18 History ondansetron 4 mg PO QID PRN PRN 08/24/18 08/24/18 History Allergies Allergy/AdvReac Type Severity Reaction Status Date / Time Penicillins Allergy Unknown Unverified 08/24/18 15:46 aspirin AdvReac Severe Wheezing Unverified 08/24/18 15:46 Exam Narrative Exam Narrative: General: Patient appears comfortable, AAOX3, NAD. Obese. Neck: Supple CV: Regular, nontachycardic, S1S2, No rubs, murmurs, or gallops. Pulmonary: Clear to auscultation bilaterally, no crackles, wheezing, or rhonchi Abdomen: + Bowel Sounds, soft, nontender, nondistended. Obese in contour. Vascular: No lower extremity edema Neurologic: CN II-XII grossly intact. No focal deficits. Psych: Normal mood and slightly blunted affect. Results Labs : 08/24/18 16:15 08/24/18 16:15 Laboratory Results - last 24 hr 08/24/18 08/24/18 16:15 16:15 WBC 10.03 RBC 4.60 Hgb 13.9 Hct 41.8 MCV 90.9 MCH 30.2 MCHC 33.3 RDW 13.0 Plt Count 275 MPV 11.3 H Immature Gran % 0.1 Neutrophils % 55.6 Lymphocytes % 34.5 Monocytes % 6.3 Eosinophils % 3.3 Basophils % 0.2 Absolute Neutrophils 5.58 Absolute Lymphocytes 3.46 H Absolute Monocytes 0.63 Absolute Eosinophils 0.33 Absolute Basophils 0.02 Sodium 138 Potassium 3.6 Chloride 101 Carbon Dioxide 25.4 Anion Gap 11.6 H BUN 8 Creatinine 0.80 Estimated GFR/1.73 m2 >= 60.00 Glucose 166 H Calcium 9.2 Total Bilirubin 0.2 AST 94 H ALT 92 H Alkaline Phosphatase 71 Total Protein 8.1 Albumin 3.4 TSH 1.46 Last Vital Signs Temp 36.9 C 08/24/18 15:33 Pulse 84 08/24/18 15:33 Resp 12 08/24/18 15:33 BP 162/100 H 08/24/18 15:33 Pulse Ox 96 08/24/18 15:33
[2018-08-25 11:03] VITALS: BP 158/94; PULSE 89; RESP 22; TEMP 36.7; O2SAT 96
--- NOTE | 2018-08-25 11:07 | HPE_ITS ---
Date of service: 08/25/18 Time of Service: 10:55 Assessment and Plan (1) Suicidal ideation: Current visit: Yes Status: Acute Unsure if the patient is truly suicidal, she is currently denying any plans to harm herself or any suicidality, rather that she is experiencing command auditory hallucinations that are instructing her to commit suicide. Regardless. Patient is being evaluated by mental health and care management with plans for referral to admit to an inpatient psychiatric unit. Please note that she was just discharged yesterday from [facility] for the same complaint. Following her admission there her SSRI therapy was increased and gabapentin was added. The thought of using an antipsychotic such as Ariprazole was deemed risky secondary to the patient's elevated blood sugar and diagnosis of DM, given her relatively young age. For now we will continue on with her home regimen of gabapentin, sertraline, and nightly trazodone. We will also admit with one-to-one observer with an inpatient safety plan in place. (2) Tobacco abuse: Current visit: Yes Status: Chronic NRT in the form of Nicotrol. (3) Depression: Current visit: Yes Status: Chronic Treatment as above. (4) Diabetes type 2, uncontrolled: Current visit: No Status: Chronic Noted. Will hold metformin as an inpatient, and cover with sliding scale coverage. (5) DVT prophylaxis: Current visit: Yes Status: Acute SC Lovenox. History of Present Illness Chief Complaint: Hearing voices Narrative: 22-year-old woman with a past medical history significant for borderline personality disorder and depression, being admitted from [facility] Emergency Department on 08/25 with a diagnosis of suicidal ideation. Ms. Joaquin has a prior medical history significant for borderline personality disorder, adjustment disorder, depression, and anxiety. She also has a prior history of syncope for which she was hospitalized in 2017, asthma, tobacco abuse, and mention of prescription drug abuse in the past by history. The patient was just admitted at [facility] inpatient psychiatric unit, discharged the day prior to her admission here with the same complaints. She was noted to be in a worsening state of depression due to a recent in her family, and reported command auditory hallucinations instructing her to harm herself and to commit grey icide. She was fully evaluated by psychiatry while inpatient at [facility], noted that her auditory hallucinations were not a psychiatric disorder, rather likely a stress response. And the time of her discharge she was said to be no longer suicidal. However, upon her discharge she continued to hear these voices and presented back to the emergency department. However, she has no plan, and is denying any intent to harm herself or others. In fact she reports not being suicidal, instead seeking help because her voices continue on. Mental health has evaluated her, and she is currently being admitted while awaiting an inpatient psychiatric bed. Review of Systems Review of Systems All systems reviewed & are unremarkable except as noted in HPI and below PFSH Medical History History of prescription drug abuse (Chronic) Tobacco abuse (Chronic) Asthma (Chronic) Suicidal ideation (Acute) Adjustment disorder (Acute) Depression (Chronic) History of syncope (Chronic) Borderline personality disorder (Chronic) Morbid obesity (Chronic) Diabetes type 2, uncontrolled (Chronic) Asthma Insomnia Schizophrenia Social History Smoking/Tobacco Use Status: Current every day Tobacco Type: cigarettes Smoking cigarettes per day: 10 Years smoked: 5 Tobacco: How many years used: 5 Alcohol Intake: current Alcohol Intake frequency: holidays/special occasions only Drug use: Never Substance use type: does not use Do you feel safe at home: Yes Do you feel safe in your relationship?: Yes Additional Social history: Lives in a house with her sister, brother and [id number], and fianc?. Reports daily use of tobacco, but denies alcohol or illicit substance abuse. Meds Home Medications Medication Instructions Recorded Confirmed Type trazodone 100 mg PO HS 03/18/18 08/24/18 History metformin 500 mg PO BID 04/17/18 08/24/18 History sertraline 150 mg PO DAILY 04/17/18 08/24/18 History acetaminophen 650 mg PO PRN PRN 05/07/18 08/24/18 History albuterol sulfate [ProAir HFA] 2 puff INHALATION Q4H PRN PRN #8.5 05/11/18 08/24/18 Rx g Accu-Chek Adriana Plus test strp #100 each 06/17/18 07/03/18 Rx docusate sodium 100 mg PO HS 08/24/18 08/24/18 History gabapentin 300 mg PO TID 08/24/18 08/24/18 History hydroxyzine HCl 25 mg PO TID PRN 08/24/18 08/24/18 History meclizine 12.5 mg PO TID PRN PRN 08/24/18 08/24/18 History ondansetron 4 mg PO QID PRN PRN 08/24/18 08/24/18 History Allergies Allergy/AdvReac Type Severity Reaction Status Date / Time Penicillins Allergy Unknown Unverified 08/24/18 15:46 aspirin AdvReac Severe Wheezing Unverified 08/24/18 15:46 Exam Narrative Exam Narrative: General: Patient appears comfortable, AAOX3, NAD. Obese. Neck: Supple CV: Regular, nontachycardic, S1S2, No rubs, murmurs, or gallops. Pulmonary: Clear to auscultation bilaterally, no crackles, wheezing, or rhonchi Abdomen: + Bowel Sounds, soft, nontender, nondistended. Obese in contour. Vascular: No lower extremity edema Neurologic: CN II-XII grossly intact. No focal deficits. Psych: Normal mood and slightly blunted affect. Results Labs : 08/24/18 16:15 08/24/18 16:15 Laboratory Results - last 24 hr 08/24/18 08/24/18 16:15 16:15 WBC 10.03 RBC 4.60 Hgb 13.9 Hct 41.8 MCV 90.9 MCH 30.2 MCHC 33.3 RDW 13.0 Plt Count 275 MPV 11.3 H Immature Gran % 0.1 Neutrophils % 55.6 Lymphocytes % 34.5 Monocytes % 6.3 Eosinophils % 3.3 Basophils % 0.2 Absolute Neutrophils 5.58 Absolute Lymphocytes 3.46 H Absolute Monocytes 0.63 Absolute Eosinophils 0.33 Absolute Basophils 0.02 Sodium 138 Potassium 3.6 Chloride 101 Carbon Dioxide 25.4 Anion Gap 11.6 H BUN 8 Creatinine 0.80 Estimated GFR/1.73 m2 >= 60.00 Glucose 166 H Calcium 9.2 Total Bilirubin 0.2 AST 94 H ALT 92 H Alkaline Phosphatase 71 Total Protein 8.1 Albumin 3.4 TSH 1.46 Last Vital Signs Temp 36.9 C 08/24/18 15:33 Pulse 84 08/24/18 15:33 Resp 12 08/24/18 15:33 BP 162/100 H 08/24/18 15:33 Pulse Ox 96 08/24/18 15:33
[2018-08-25 11:38] VITALS: BP 158/94; PULSE 89; RESP 22; TEMP 36.7; O2SAT 96
[2018-08-25] MEDS: Acetaminophen 325 MG TAB PO (12:22)
[2018-08-25] MEDS: Enoxaparin 40 MG/0.4 ML SYR SC (12:22)
[2018-08-25 13:28] LABS: *AMPHETAMINES SCREEN URINE Negative (Negative); *BARBITURATES SCREEN URINE Negative (Negative); *BENZODIAZEPINES SCREEN URINE Negative (Negative); Cannabinoids THC Negative (Negative); Cocaine Screen,Urine Negative (Negative); METHADONE URINE SCREEN Negative (Negative); OPIATES URINE SCREEN Negative (Negative)
[2018-08-25 13:29] LABS: Tricyclic Antidepressants Negative (Negative)
[2018-08-25 13:34] LABS: Bilirubin Negative (Negative); Blood Large (Negative); Clarity Turbid; Glucose Negative (Negative); Ketones Negative (Negative); Leukocyte Esterase Negative (Negative); Nitrite Negative (Negative); Specific Gravity >= 1.030 (1.005-1.025); Urobilinogen 0.2 EU/dL (Up TO 0.2)
[2018-08-25 13:38] LABS: C & S Indicated? No
[2018-08-25 15:15] VITALS: BP 139/78; PULSE 78; RESP 20; TEMP 36.5; O2SAT 94
--- NOTE | 2018-08-25 17:08 | DSE_ITS ---
Date of service: 08/25/18 Time of Service: 17:07 DS: Diagnosis Discharge Diagnosis (1) Suicidal ideation: Status: Acute (2) Tobacco abuse: Status: Chronic (3) Depression: Status: Chronic (4) Diabetes type 2, uncontrolled: Status: Chronic Discharge Plan Disposition Patient Disposition: HOME Condition: Stable Discharge Details Chief Complaint: PsychEval Reason For Visit: SUICIDAL IDEATION Admit Date/Time: 08/25/18 10:01 Admit Provider: Clint Go Attending Provider: Clint Go Primary Care Provider: Charanjit Maria ED Provider: Jaiden Burnett Hospital Course Hospital Course: 22-year-old woman with a past medical history significant for borderline personality disorder and depression, being admitted from [facility] Emergency Department on 08/25 with a diagnosis of suicidal ideation. Ms. Joaquin has a prior medical history significant for borderline personality disorder, adjustment disorder, depression, and anxiety. She also has a prior history of syncope for which she was hospitalized in 2017, asthma, tobacco abuse, and mention of prescription drug abuse in the past by history. The patient was just admitted at [facility] inpatient psychiatric unit, discharged the day prior to her admission here with the same complaints. She was noted to be in a worsening state of depression due to a recent in her family, and reported command auditory hallucinations instructing her to harm herself and to commit suicide. She was fully evaluated by psychiatry while inpatient at [facility], noted that her auditory hallucinations were not a psychiatric disorder, rather likely a stress response. And the time of her discharge she was said to be no longer suicidal. However, upon her discharge she continued to hear these voices and presented back to the emergency department. However, she has no plan, and is denying any intent to harm herself or others. In fact she reports not being suicidal, instead seeking help because her voices continue on. Mental health has evaluated her, and she is currently being admitted while awaiting an inpatient psychiatric bed. (1) Suicidal ideation: Unlikely that patient is truly suicidal - she initially denied any plans to harm herself or any suicidality, rather that she was experiencing command auditory hallucinations that were instructing her to commit suicide. She was just discharged yesterday from [facility] for the same complaint. Following her admission there her SSRI therapy was increased and gabapentin was added. The thought of using an antipsychotic such as Ariprazole was deemed risky secondary to the patient's elevated blood sugar and diagnosis of DM, given her relatively young age. Her symptoms were deemed likely not psychiatric disorder, but rather a stress response. She was denied inpatient admission at other facility(s) according to care management. We discussed this in detail, and patient did concede that she is not suicidal, and will not harm herself. As she has appointments scheduled in the community with therapists, etc. she is being discharged home. For now we will continue on with her home regimen of gabapentin, sertraline, and nightly trazodone. (2) Tobacco abuse: NRT in the form of Nicotrol was provided. (3) Depression: Treatment as above. (4) Diabetes type 2, uncontrolled: Noted. Will continue metformin. Home Meds and New Rx's Prescriptions: Continued acetaminophen 325 mg Tablet 650 mg PO PRN PRNRF: 0 gabapentin 300 mg Capsule 300 mg PO TID RF: 0 hydroxyzine HCl 25 mg Tablet 25 mg PO TID PRNRF: 0 meclizine 12.5 mg Tablet 12.5 mg PO TID PRN PRNRF: 0 docusate sodium 100 mg Capsule 100 mg PO HS RF: 0 ondansetron 4 mg Tablet,Disintegrating 4 mg PO QID PRN PRNRF: 0 trazodone 100 mg Tablet 100 mg PO HS RF: 0 metformin 500 mg Tablet 500 mg PO BID RF: 0 sertraline 25 mg Tablet 150 mg PO DAILY RF: 0 albuterol sulfate [ProAir HFA] 90 mcg/actuation Hfa Aerosol Inhaler 2 puff Inhalation Q4H PRN PRNQty: 8.5 RF: 0 Accu-Chek Adriana Plus test strp strip .ROUTE .MEDSUPPLY Qty: 100 RF: 0 Discharge Instructions Activity:: Activity as Tolerated Equipment/Supplies:: No Equipment Needed Diet:: Carb Counting Discharge Orders Discharge Orders: Discharge Order (Routine); Ordered 08/25/18 Ordered By: Clint Go DS: Data Vitals/I&O Vitals and I&O: Vital Signs Temperature 36.5 C 08/25/18 15:15 Temperature Source Tympanic 08/25/18 15:15 Pulse 78 08/25/18 15:15 Pulse Rhythm Regular 08/25/18 11:38 Respiratory Rate 20 08/25/18 15:15 Respiratory Effort 08/25/18 11:38 Respiratory Depth Normal 08/25/18 11:38 Respiratory Pattern Normal 08/25/18 11:38 Blood Pressure 139/78 08/25/18 15:15 Pulse Oximetry 94 L 08/25/18 15:15 Oxygen Delivery Method Room Air 08/25/18 15:15 Oxygen Flow Rate 0 08/25/18 15:15 Pain Level 0 08/25/18 15:15 Intake & Output 08/24/18 08/25/18 08/25/18 23:59 11:59 23:59 Intake Total 240 / 480 240 / 480 Output Total 400 / 400 Balance 240 / 80 -160 / 80 Weight 166.922 kg 166.922 kg Intake: Oral 240 / 480 240 / 480 Output: Urine 400 / 400 Other: Urine Color Yellow Cm Dark Red Urine Appearance Clear Clear Urine Odor None None Comment wasnt a hat in the toilet so i couldnt measure urine Stool Size Moderate Stool Characteristics Soft Formed Voiding Methods Toilet Toilet Labs on day of discharge: Labs from last 24 hours 08/25/18 08/25/18 12:53 12:53 Urine Color Red Urine Clarity Turbid Urine pH 6.0 Ur Specific [place] >= 1.030 H Urine Protein 100 H Urine Ketones Negative Urine Blood Large H Urine Nitrite Negative Urine Bilirubin Negative Urine Urobilinogen 0.2 Ur Leukocyte Esterase Negative Urine RBC Urine WBC Not Applicable Ur Epithelial Cells Not Applicable Urine Crystals Not Applicable Urine Bacteria Not Applicable Urine Mucus Not Applicable Ur Culture Indicated? No Urine Glucose Negative Urine Opiates Screen Negative Urine Methadone Screen Negative Ur Barbiturates Screen Negative Ur Tricyclics Screen Negative Ur Amphetamines Screen Negative U Benzodiazepines Scrn Negative Urine Cocaine Screen Negative Ur THC Screen Negative [facility] Medical History History of prescription drug abuse (Chronic) Tobacco abuse (Chronic) Asthma (Chronic) Suicidal ideation (Acute) Adjustment disorder (Acute) Depression (Chronic) History of syncope (Chronic) Borderline personality disorder (Chronic) Morbid obesity (Chronic) Diabetes type 2, uncontrolled (Chronic) Asthma Insomnia Schizophrenia Family History Other Diabetes Essential hypertension Social History Smoking/Tobacco Use Status: Current every day Tobacco Type: cigarettes Smoking cigarettes per day: 10 Years smoked: 5 Tobacco: How many years used: 5 Alcohol Intake: current Alcohol Intake frequency: holidays/special occasions only Drug use: Never Substance use type: does not use Do you feel safe at home: Yes Do you feel safe in your relationship?: Yes Additional Social history: Lives in a house with her sister, brother and [id number], and fianc?. Reports daily use of tobacco, but denies alcohol or illicit substance abuse.
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
== END 2018-08-25 17:55 | disposition home or self-care (01) ==
LOC: ER 08-25 10:05 → MS 08-25 10:56
PROVIDERS: Student in an Organized Health Care Education/Training Program; Admitting Provider Internal Medicine; Emergency Provider Emergency Medicine; PCP Specialist/Technologist Athletic Trainer; Visit Provider Internal Medicine
DX: R45.851 Suicidal ideations (principal); R44.0 Auditory hallucinations; F32.9 Major depressive disorder, single episode, unspecified; F17.210 Nicotine dependence, cigarettes, uncomplicated; E11.9 Type 2 diabetes mellitus without complications; F60.3 Borderline personality disorder; Z79.84 Long term (current) use of oral hypoglycemic drugs
CPT/HCPCS: 36415; 36416; 80053; 80307; 82962; 99219; 99285; J1650; NC; 81003; 81015; 84443; 85025; 99284; G0378

== ENCOUNTER 2018-08-25 21:03 | Inpatient (IN) | payer MEDICAID, SELFPAY ==
[2018-08-25 21:07] VITALS: BP 149/96; PULSE 87; RESP 16; TEMP 36.1; O2SAT 95
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
--- NOTE | 2018-08-25 22:06 | NUR.NOTE ---
Nursing Note: CM called, states she will put in care plan for pt.
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
[2018-08-25 23:35] VITALS: BP 149/96; PULSE 87; RESP 16; TEMP 36.1; O2SAT 95
[2018-08-25 23:52] VITALS: BP 129/86; PULSE 85; RESP 24; TEMP 37.1; O2SAT 95
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
[2018-08-26] MEDS: metFORMIN 500 MG TAB PO ×2 (09:13→16:51)
[2018-08-26] MEDS: Gabapentin 300 MG CAP PO ×3 (09:13→19:34)
[2018-08-26] MEDS: Sertraline 25 MG TAB 150 MG PO (09:13)
--- NOTE | 2018-08-26 09:30 | PDOC.CMIN ---
- If Service Date Differs Date of service: 08/26/18 Time of Service: 09:30 Care Management Initial Assess REASON FOR HOSPITALIZATION:: Suicidal Ideation PAST MEDICAL HISTORY/PAST SURGICAL HISTORY:: Adjustment disorder, asthma, borderline personality disorder, depression, DM, history of prescription drug abuse, insomnia, obesity, schizophrenia. PREVIOUS FUNCTIONAL STATUS/SOCIAL/FAMILY SUPPORTS:: Talia lives with her male partner in [place], [place]. She is disabled and is supported in the community by mental health through TOBACCO SHAKER program. CURRENT FUNCTIONAL STATUS:: Talia makes good eye contact she was able to meet with TOBACCO SHAKER today. She is awaiting placement anticipate no beds today. She will remain on SI precautions at this time. ADVANCE DIRECTIVES:: None on file declines at this time. Has patient been provided with information about the portal?: Yes Did the patient sign up for the portal?: No CODE STATUS:: Full Code INSURANCE COVERAGE / FINANCIAL ISSUES:: Medicaid CURRENT HOME/COMMUNITY SERVICES/EQUIPMENT:: TOBACCO SHAKER through [facility] PRIMARY CARE PHYSICIAN:: ZACH Jackson [facility] POTENTIAL DISCHARGE NEEDS:: Psychiatric facility for stabilization PATIENT/FAMILY EDUCATION NEEDS:: Safety plan education and review, update psychiatric placement and expectations of transfer. ANTICIPATED BARRIERS TO DISCHARGE:: Psychiatric bed availability. TRANSPORTATION:: Via [employer] Professional when bed is available coordinated by CM PLAN:: Talia is a 22 year old female readmitted for psychiatric stabilization after [facility] [place]. Safety plan created with the patient and care team. Awaiting placement at accepting facility for stabilization for known psychiatric disorder.
--- NOTE | 2018-08-26 09:42 | INITIAL_ITS ---
- If Service Date Differs Date of service: 08/26/18 Time of Service: 09:30 Care Management Initial Assess REASON FOR HOSPITALIZATION:: Suicidal Ideation PAST MEDICAL HISTORY/PAST SURGICAL HISTORY:: Adjustment disorder, asthma, borderline personality disorder, depression, DM, history of prescription drug abuse, insomnia, obesity, schizophrenia. PREVIOUS FUNCTIONAL STATUS/SOCIAL/FAMILY SUPPORTS:: Talia lives with her male partner in [place], [place]. She is disabled and is supported in the community by mental health through CUT OUT WORKER program. CURRENT FUNCTIONAL STATUS:: Talia makes good eye contact she was able to meet with CUT OUT WORKER today. She is awaiting placement anticipate no beds today. She will remain on SI precautions at this time. ADVANCE DIRECTIVES:: None on file declines at this time. Has patient been provided with information about the portal?: Yes Did the patient sign up for the portal?: No CODE STATUS:: Full Code INSURANCE COVERAGE / FINANCIAL ISSUES:: Medicaid CURRENT HOME/COMMUNITY SERVICES/EQUIPMENT:: CUT OUT WORKER through [facility] PRIMARY CARE PHYSICIAN:: ZACH Jackson [facility] POTENTIAL DISCHARGE NEEDS:: Psychiatric facility for stabilization PATIENT/FAMILY EDUCATION NEEDS:: Safety plan education and review, update psychiatric placement and expectations of transfer. ANTICIPATED BARRIERS TO DISCHARGE:: Psychiatric bed availability. TRANSPORTATION:: Via Digital Performance Analyst when bed is available coordinated by CM PLAN:: Talia is a 22 year old female readmitted for psychiatric stabilization a fter discharge from [facility] [place] over the past week. Safety plan created with the patient and care team. Awaiting placement at accepting facility for stabilization for known psychiatric disorder.
--- NOTE | 2018-08-26 09:45 | PHARADMIT ---
Admission Pharmacy Clinical Review suicidal; depression Code Status Full Code Current Weight 168.9 kg Renally Cleared and Narrow Therapeutic Index Meds Crcl over 100 mL/min current meds okay QTc Value / Action Taken QTc 449 from 08/18/18 BP Control, Fever BP 129/86 afebrile Electrolytes reviewed n/a DVT Prophylaxis none Opiate Usage / Scheduled Bowel Regimen Ordered no/keron docusate Plt/SCr for Heparin / Enoxaparin n/a INR for Warfarin n/a H/H stable, WBC/Bands n/a Antibiotic appropriateness n/a Cultures and Sensitivities n/a Surgical ABX d/c within 24 hr n/a DM control / Insulin Dosing FSBG 132 has metformin ordered bid Heart Failure (Check EF%) (SHEY's, B-Block, Diuretics) none IV to PO Switch n/a Home Meds Reviewed -sertraline may enhance the serotonergic effect of trazodone increasing the risk of serotonin syndrome -multiple FELTMAKER depressants: gabapentin, meclizine, hydroxyzine Home Meds Not Ordered medroxyprogesterone (rx only for 10 days/from 2017) Comments awaiting placement per CM
[2018-08-26 10:40] VITALS: BP 148/91; PULSE 80; RESP 20; TEMP 36.6; O2SAT 97
[2018-08-26 16:24] VITALS: BP 142/95; PULSE 78; RESP 20; TEMP 37; O2SAT 96
[2018-08-26] MEDS: Acetaminophen 650 MG SUPP PR (18:32)
[2018-08-26] MEDS: traZODone 100 MG TAB PO (21:23)
[2018-08-26] MEDS: Docusate Sodium 100 MG CAP PO (21:23)
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
[2018-08-26 23:29] VITALS: BP 120/77; PULSE 83; RESP 22; TEMP 36.7; O2SAT 95
[2018-08-27 07:40] VITALS: BP 136/75; PULSE 81; RESP 20; TEMP 36.9; O2SAT 95
[2018-08-27] MEDS: Gabapentin 300 MG CAP PO ×2 (07:52→13:22)
[2018-08-27] MEDS: Sertraline 25 MG TAB 150 MG PO (07:52)
[2018-08-27] MEDS: metFORMIN 500 MG TAB PO (07:52)
[2018-08-27 10:04] LABS: HGB 12.8 g/dL (12.0-15.5); Mean Corp. HGB Concentration 33.7 g/dL (32.0-36.0); Mean Corpuscular Hemoglobin 30.6 pg (27.0-33.0); Mean Corpuscular Volume 90.9 fL (80-95); Platelet Count 227 x1000/uL (130-400); RBC 4.18 m/cumm (4.00-5.20); RBC Distribution Width 12.7 % (11.7-14.6)
--- NOTE | 2018-08-27 11:06 | CMPROGNOTE_ITS ---
- If Service Date Differs Date of service: 08/27/18 Time of Service: 11:04 Care Management Progress Note S/O:CM met with Talia at the bedside, she is currently stating that she is not suicidal and that she will be okay if she can return home to her Fiance. She does state that she has had several hospital admissions she states they have not been helpful. She reports she does not know if she could cope with going to a warming halfway. When this option is presented to her she states I would throw myself in front of a car. When CM ask her if she feels suicidal she states not if I can go home to my fiance. CM reviewed support system with Talia she reports Nic Gray is her only support. She has lived with Nic in his home for the last two years. She has a Father that lives in [place] she does not have contact with him. Her sister recently moved into the home about 6 months ago. She states that she does not have a good relationship with her. AIRPLANE MECHANIC APPRENTICE is a new resource for her she reports that she is not utilizing the service well. She has not attended any support groups through the service. She does have a therapist Vi Joseph through [facility]. She states she has also [facility] to [facility] for subsid[facility] she cannot remember the person name she met with. She states she does not have any other housing supports or family she can stay with. CM reviewed resources and support with patient and AIRPLANE MECHANIC APPRENTICE medical case manager, CM recommended DBT therapy and group therapy to assist her with coping tools to strategic alliances manager her emotions. Talia is willing to sign a safety plan with mental health so that she can return home. Her fiance and her sister Breana agree to having her return home today. A: Talia is a 22 year old female admitted with Suicidal Ideation P: Talia is being discharged home today with a plan and outpatient support through [facility]. She has met with [facility] and agreed to a safety plan which includes a contract for safety and follow up with her community provider. [facility] is referring her to increased supports through [facility]. CM faxed information to [facility] addressed to Vi Joseph and Stephania Vazquez her AIRPLANE MECHANIC APPRENTICE CM. Talia will need increased services through the agency including referral to support groups that may provide increase coping skills. Talia sister will pick her up today.
[2018-08-27] MEDS: Acetaminophen 500 MG TAB 1000 MG PO (11:21)
[2018-08-27 12:33] LABS: HCG Qual (Urine) Negative
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
--- NOTE | 2018-08-27 15:05 | PDOC.CMDIS ---
- If Service Date Differs Date of service: 08/27/18 Time of Service: 15:05 LACE Index Scoring Tool - Questions: Length of Stay (in days): 2 Acuity (Admit via E.D.?): Yes Comorbidities: Diabetes w/o Complication E.D. Visits: 14 - Answers: Total Score: 10 Risk of Readmission: High Risk Care Management Discharge Reason for Hospitalization: Suicidal Ideation Discharge Plan: CM met with Talia at the bedside, she is currently stating that she is not suicidal and that she will be okay if she can return home to her Fiance. She does state that she has had several hospital admissions she states they have not been helpful. She reports she does not know if she could cope with going to a warming correction. When this option is presented to her she states I would throw myself in front of a car. When CM ask her if she feels suicidal she states not if I can go home to my fiance. CM reviewed support system with Talia she reports Nic Gray is her only support. She has lived with Nic in his home for the last two years. She has a Father that lives in [place] she does not have contact with him. Her sister recently moved into the home about 6 months ago. She states that she does not have a good relationship with her. BEHAVIORAL ANALYST is a new resource for her she reports that she is not utilizing the service well. She has not attended any support groups through the service. She does have a therapist Vi Joseph through [facility]. She states she has also utilized [facility] to apply for subsidized housing she cannot remember the person name she met with. She states she does not have any other housing supports or family she can stay with. CM reviewed resources and support with patient and BEHAVIORAL ANALYST returned case inspector, CM recommended DBT therapy and group therapy to assist her with coping tools to government contracts manager her emotions. Talia is willing to sign a safety plan with mental health so that she can return home. Her fidarren and her sister Breana agree to having her return home today. Talia is being discharged home today with a plan and outpatient support through [facility]. She has met with [facility] and agreed to a safety plan which includes a contract for safety and follow up with her community provider. [facility] is referring her to increased supports through [facility]. CM faxed information to [facility] addressed to Vi Joseph and Stephania D'joo her BEHAVIORAL ANALYST CM. Talia will need increased services through the agency including referral to support groups that may provide increase coping skills. Talia sister will pick her up today. Patient/Family Education Needs: Education, limitations and follow up plan. CM faxed information to chronic career development engineer and [facility]. CM provided patient with a notebook for journaling and reviewed some techniques to manage stress including going outside to take a break from the situation and using her stress ball for relief. CM provided Talia with the safety plan and contact information for mental health for crisis. - MH Services (Omit if N/A) Current MH Services: BEHAVIORAL ANALYST
--- NOTE | 2018-08-27 15:09 | CMDISCH_ITS ---
- If Service Date Differs Date of service: 08/27/18 Time of Service: 15:05 LACE Index Scoring Tool - Questions: Length of Stay (in days): 2 Acuity (Admit via E.D.?): Yes Comorbidities: Diabetes w/o Complication E.D. Visits: 14 - Answers: Total Score: 10 Risk of Readmission: High Risk Care Management Discharge Reason for Hospitalization: Suicidal Ideation Discharge Plan: CM met with Talia at the bedside, she is currently stating that she is not suicidal and that she will be okay if she can return home to her Fiance. She does state that she has had several hospital admissions she states they have not been helpful. She reports she does not know if she could cope with going to a warming senior care. When this option is presented to her she states I would throw myself in front of a car. When CM ask her if she feels suicidal she states not if I can go home to my fiance. CM reviewed support system with Talia she reports Nic Gray is her only support. She has lived with Nic in his home for the last two years. She has a Father that lives in [place] she does not have contact with him. Her sister recently moved into the home about 6 months ago. She states that she does not have a good relationship with her. [facility] is a new resource for her she reports that she is not utilizing the service well. She has not attended any support groups through the service. She does have a therapist Vi Joseph through [facility]. She states she has also utilized [facility] to apply for subsidized housing she cannot remember the person name she met with. She states she does not have any other housing supports or family she can stay with. CM reviewed resources and support with patient and [facility] rn case manager hospice, CM recommended DBT therapy and group therapy to assist her with coping tools to editorial project manager her emotions. Talia is willing to sign a safety plan with mental health so that she can return home. Her fidarren and her sister Breana agree to having her return home today. Talia is being discharged home today with a plan and outpatient support through [facility]. She has met with [facility] and agreed to a safety plan which includes a contract for safety and follow up with her community provider. [facility] is referring her to increased supports through [facility]. CM faxed information to [facility] addressed to Vi Joseph and Stephania D'joo her INWEAVER CM. Talia will need increased services through the agency including referral to support groups that may provide increase coping skills. Talia sister will pick her up today. Patient/Family Education Needs: Education, limitations and follow up plan. CM faxed information to chronic critical care specialist and [facility]. CM provided patient with a notebook for journaling and reviewed some techniques to manage stress including going outside to take a break from the situation and using her stress ball for relief. CM provided Talia with the safety plan and contact information for mental health for crisis. - MH Services (Omit if N/A) Current MH Services: [facility]
--- NOTE | 2018-08-29 21:18 | PDOC.ERCMPRO ---
Care Management Progress Note Talia has been seen in the ED 15 times in the past 6 months-five of these visits were in the last eleven days. She was [place] [facility] [place] on 08/22/18-she discharged and re-presented twice on 08/25/18 to [facility] ED resulting in admissions to MED/SURG discharging to home with each event. She presents to the ED again via [facility] following a period of aggression and reports of SI. Per recent assessments, this is a behavioral pattern that HI TEACHER is reportedly attempting to manage in the community without further hospitalization; likely resulting in further escalation of Talia's behavioral presentation due to stress response and feeling safe and cared for in the setting at [facility]. She was assessed this evening by [facility] crisis who reports Talia requires further observation overnight due to continued statements of self harm and inability to comply with safety planning. Placement will be sought for psychiatric stabilization, in the event Talia remains at [facility] through the night, she will be re-evaluated by [facility] HI TEACHER tomorrow. VOLUNTARY FOR CRISIS BED PLACEMENT AND/OR PSYCHIATRIC STABILIZATION. SAFETY PLAN: ED Time and Date: 08/29/18 1. Will remain in her own T-Shirt and sweatpants. (Has been waned by security. Paper scrubs not available in her size). 2. Will remain in room under direct supervision of one-on-one staff at all times provided by [facility] (DESIREE, PAIN MANAGEMENT SPECIALIST television camera operator). 3. May have paper cups, plates, finger foods, metal spoon to be accounted for by staff after meal. 4. Follow [facility] Management of the Admitted Behavioral Health Patient policy printed and attached to the safety plan in physical chart. 5. Comfort bath system only. 6. No personal belongings except clothing and glasses. 7. No visitors at this time 8. No phone 9. Staff escort to the bathroom 10. Voluntary admission status. If Talia wishes to leave the hospital the [facility] Pulping Machine Operator must be contacted to re-evaluate her prior to her exiting the building. [facility] will be coordinating placement at crisis bed facility. Patient is currently voluntarily at [facility] and seeking placement at crisis beds and psychiatric hospitals. [facility] Frontline Pulping Machine Operator will continue seeking placement. Please contact the Head Neck Surgeon Slide Attendant ([phone]) and [facility] Pulping Machine Operator ([phone]) for any needed changes in the Safety Plan. Safety plan has been provided to interdepartmental care team including Clinical Coordinator and Nursing Tube Machine Operator Helper. - MH Services (Omit if N/A) Current MH Services: HI TEACHER
--- NOTE | 2018-08-29 21:40 | CMPROGNOTE_ITS ---
Care Management Progress Note Talia has been seen in the ED 15 times in the past 6 months-five of these visits were in the last eleven days. She was [place] [facility] [place] on 08/22/18-she discharged and re-presented twice on 08/25/18 to [facility] ED resulting in admissions to MED/SURG discharging to home with each event. She presents to the ED again via [facility] following a period of aggression and reports of SI. Per recent assessments, this is a behavioral pattern that FLOAT OPERATOR is reportedly attempting to manage in the community without further hospitalization; likely resulting in further escalation of Talia's behavioral presentation due to stress response and feeling safe and cared for in the setting at [facility]. She was assessed this evening by [facility] crisis who reports Talia requires further observation overnight due to continued statements of self harm and inability to comply with safety planning. Placement will be sought for psychiatric stabilization, in the event Talia remains at [facility] through the night, she will be re-evaluated by [facility] FLOAT OPERATOR tomorrow. VOLUNTARY FOR CRISIS BED PLACEMENT AND/OR PSYCHIATRIC STABILIZATION. SAFETY PLAN: ED Time and Date: 08/29/18 1. Will remain in her own T-Shirt and sweatpants. (Has been waned by security. Paper scrubs not available in her size). 2. Will remain in room under direct supervision of one-on-one staff at all times provided by [employer] (DESIREE, CUT TOBACCO BULKER embossing calender operator). 3. May have paper cups, plates, finger foods, metal spoon to be accounted for by staff after meal. 4. Follow [facility] Management of the Admitted Behavioral Health Patient policy printed and attached to the safety plan in physical chart. 5. Comfort bath system only. 6. No personal belongings except clothing and glasses. 7. No visitors at this time 8. No phone 9. Staff escort to the bathroom 10. Voluntary admission status. If Talia wishes to leave the hospital the [facility] Shop Steward must be contacted to re-evaluate her prior to her exiting the building. [facility] will be coordinating placement at crisis bed facility. Patient is currently voluntarily at [facility] and seeking placement at crisis beds and psychiatric hospitals. [facility] Frontline Shop Steward will continue seeking placement. Please contact the Speech And Drama Teacher Branch Lead ([phone]) and [facility] Shop Steward ([phone]) for any needed changes in the Safety Plan. Safety plan has been provided to interdepartmental care team including Clinical Coordinator and Nursing Advertising Vice President. - MH Services (Omit if N/A) Current MH Services: FLOAT OPERATOR
== END 2018-08-27 14:52 | disposition home or self-care (01) | DRG 881 ==
LOC: ER 22:57 → MS 23:39
PROVIDERS: Nurse Practitioner Family; Admitting Provider General Practice; Emergency Provider Emergency Medicine; PCP Specialist/Technologist Athletic Trainer; Visit Provider Internal Medicine
DX: F32.9 Major depressive disorder, single episode, unspecified (principal); R45.851 Suicidal ideations; R44.0 Auditory hallucinations; F60.3 Borderline personality disorder; E11.9 Type 2 diabetes mellitus without complications; F17.210 Nicotine dependence, cigarettes, uncomplicated; N92.6 Irregular menstruation, unspecified; Z79.84 Long term (current) use of oral hypoglycemic drugs
CPT/HCPCS: 36415; 85027; 99221; 99239; 99285; 81025; 99283

== ENCOUNTER 2018-08-29 18:10 | Emergency (ER) | payer MEDICAID, SELFPAY ==
--- NOTE | 2018-08-29 18:16 | NUR.NOTE ---
Nursing Note: Patient assessed by this scribe. Is in [facility] custody at this time. [facility] will continue to accompany patient in waiting room until able to get patient in ER.
[2018-08-29 19:24] VITALS: BP 155/102; PULSE 71; RESP 20; TEMP 36.8; O2SAT 97
--- NOTE | 2018-08-29 20:14 | NUR.NOTE ---
assumed care of patient, MH incoming Nursing Note:
--- NOTE | 2018-08-29 20:37 | NUR.NOTE ---
patient being evaulated by mental health Nursing Note:
--- NOTE | 2018-08-29 22:18 | NUR.NOTE ---
patient given food Nursing Note:
[2018-08-29] MEDS: Gabapentin 300 MG CAP (23:45)
[2018-08-29] MEDS: metFORMIN 500 MG TAB (23:45)
[2018-08-29] MEDS: traZODone 100 MG TAB (23:46)
--- NOTE | 2018-08-29 23:46 | NUR.NOTE ---
patient Nursing Note: medicated per MD order
--- NOTE | 2018-08-30 00:27 | NUR.NOTE ---
Nursing Note: Received report from previous nurse. Pt is currently here voluntary for inpatient admission. CPSO in place, pt currently resting quietly, appears to be asleep on left side, RR even & unlabored. Will CTM
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
[2018-08-30 03:02] VITALS: RESP 20
--- NOTE | 2018-08-30 05:11 | NUR.NOTE ---
Nursing Note: Pt has rested throughout this warehouse shift supervisor without awakening. CPSO has been present. Plan to follow up with MH later this AM for voluntary inpatient admission or possible crisis bed placement. Will CTM.
--- NOTE | 2018-08-30 07:53 | PDOC.ERCMPRO ---
Care Management Progress Note [id number] CM called [facility] and spoke with Jaiden. Jaiden states he has a note that says no referral was sent last evening and that the mixed crop and livestock farm worker in the morning will send the referral. Discussed sending referral. Jaiden requested referral be sent now so they can review. [facility] beds [facility]. Referral faxed to [facility] this am.
--- NOTE | 2018-08-30 07:59 | CMPROGNOTE_ITS ---
Care Management Progress Note [id number] CM called [facility] and spoke with Jaiden. Jaiden states he has a note that says no referral was sent last evening and that the airport utility worker in the morning will send the referral. Discussed sending referral. Jaiden requested referral be sent now so they can review. [facility]. Referral faxed to [facility] this am.
[2018-08-30] MEDS: Acetaminophen 500 MG TAB (09:30)
[2018-08-30] MEDS: Gabapentin 300 MG CAP PO ×2 (09:37→20:23)
[2018-08-30] MEDS: metFORMIN 500 MG TAB PO ×2 (09:38→20:23)
[2018-08-30] MEDS: Sertraline 50 MG TAB 150 MG PO (09:38)
[2018-08-30 09:56] VITALS: BP 110/60; PULSE 81; RESP 16; TEMP 36.5; O2SAT 96
--- NOTE | 2018-08-30 10:10 | PDOC.ERCMPRO ---
- If Service Date Differs Date of service: 08/29/18 Time of Service: 21:15 Care Management Progress Note NOTE FROM 08/29/18@2113 Talia has been seen in the ED 15 times in the past 6 months-five of these visits were in the last eleven days. She was transferred to [facility] for stabilization on 08/22/18-she discharged and re-presented twice on 08/25/18 to [facility] ED resulting in admissions to MED/SURG discharging to home with each event. She presents to the ED again via [facility] following a period of aggression and reports of SI. Per recent assessments, this is a behavioral pattern that PANTOGRAPHER is reportedly attempting to manage in the community without further hospitalization; likely resulting in further escalation of Talia's behavioral presentation due to stress response and feeling safe and cared for in the setting at [facility]. She was assessed this evening by [facility] crisis who reports Talia requires further observation overnight due to continued statements of self harm and inability to comply with safety planning. Placement will be sought for psychiatric stabilization, in the event Talia remains at [facility] through the night, she will be re-evaluated by [facility] PANTOGRAPHER tomorrow. VOLUNTARY FOR CRISIS BED PLACEMENT AND/OR PSYCHIATRIC STABILIZATION. SAFETY PLAN: ED Time and Date: 08/29/18 1. Will remain in her own T-Shirt and sweatpants. (Has been waned by security. Paper scrubs not available in her size). 2. Will remain in room under direct supervision of one-on-one staff at all times provided by CPSO (DESIREE, GLOBAL PRODUCT MANAGER high lift operator). 3. May have paper cups, plates, finger foods, metal spoon to be accounted for by staff after meal. 4. Follow [facility] Management of the Admitted Behavioral Health Patient policy printed and attached to the safety plan in physical chart. 5. Comfort bath system only. 6. No personal belongings except clothing and glasses. 7. No visitors at this time 8. No phone 9. Staff escort to the bathroom 10. Voluntary admission status. If Talia wishes to leave the hospital the [facility] Cabinetmaker Helper must be contacted to re-evaluate her prior to her exiting the building. [facility] will be coordinating placement at crisis bed facility. Patient is currently voluntarily at [facility] and seeking placement at crisis beds and psychiatric hospitals. [facility] Frontline Cabinetmaker Helper will continue seeking placement. Please contact the Independent Distributor Cant Hooker ([phone]) and [facility] Cabinetmaker Helper ([phone]) for any needed changes in the Safety Plan. Safety plan has been provided to interdepartmental care team including Clinical Coordinator and Nursing Access Control Officer. - MH Services (Omit if N/A) Current MH Services: PANTOGRAPHER
--- NOTE | 2018-08-30 10:12 | CMPROGNOTE_ITS ---
- If Service Date Differs Date of service: 08/29/18 Time of Service: 21:15 Care Management Progress Note NOTE FROM 08/29/18@2118 Talia has been seen in the ED 15 times in the past 6 months-five of these visits were in the last eleven days. She was transferred to [facility] for stabilizat ion on 08/22/18-she discharged and re-presented twice on 08/25/18 to [facility] ED resulting in admissions to MED/SURG discharging to home with each event. She presents to the ED again via [facility] following a period of aggression and reports of SI. Per recent assessments, this is a behavioral pattern that STRUCTURAL DRAFTSMAN is reportedly attempting to manage in the community without further hospitalization; likely resulting in further escalation of Talia's behavioral presentation due to stress response and feeling safe and cared for in the setting at [facility]. She was assessed this evening by [facility] crisis who reports Talia requires further observation overnight due to continued statements of self harm and inability to comply with safety planning. Placement will be sought for psychiatric stabilization, in the event Talia remains at [facility] through the night, she will be re-evaluated by [facility] STRUCTURAL DRAFTSMAN tomorrow. VOLUNTARY FOR CRISIS BED PLACEMENT AND/OR PSYCHIATRIC STABILIZATION. SAFETY PLAN: ED Time and Date: 08/29/18 1. Will remain in her own T-Shirt and sweatpants. (Has been waned by security. Paper scrubs not available in her size). 2. Will remain in room under direct supervision of one-on-one staff at all times provided by CPSO (DESIREE, SUPERVISOR PORCELAIN DEPARTMENT ornamental plasterer helper). 3. May have paper cups, plates, finger foods, metal spoon to be accounted for by staff after meal. 4. Follow [facility] Management of the Admitted Behavioral Health Patient policy printed and attached to the safety plan in physical chart. 5. Comfort bath system only. 6. No personal belongings except clothing and glasses. 7. No visitors at this time 8. No phone 9. Staff escort to the bathroom 10. Voluntary admission status. If Talia wishes to leave the hospital the [facility] Alarm Technician must be contacted to re-evaluate her prior to her exiting the building. [facility] will be coordinating placement at crisis bed facility. Patient is currently voluntarily at [facility] and seeking placement at crisis beds and psychiatric hospitals. [facility] Frontline Alarm Technician will continue seeking placement. Please contact the Optical Instrument Repairer Reservoir Engineering Manager ([phone]) and [facility] C risis Worker ([phone]) for any needed changes in the Safety Plan. Safety plan has been provided to interdepartmental care team including Clinical Coordinator and Nursing Medical Laboratory Technical Officer. - MH Services (Omit if N/A) Current MH Services: STRUCTURAL DRAFTSMAN
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
[2018-08-30 11:04] LABS: Abs Immature Grans 0.01 k/cumm (0.0-0.09); Absolute Basophil Count 0.04 k/cumm (0.0-0.2); Absolute Eosinophil Count 0.35 k/cumm (0.0-0.7); Absolute Lymphocyte Count 2.64 k/cumm (1.2-3.4); Absolute Monocyte Count 0.47 k/cumm (0.11-0.7); Absolute Neutrophil Count 4.74 k/cumm (1.2-6.7); Basophils % 0.5; Eosinophils % 4.2; HCT 37.2 % (36.0-46.0); HGB 12.2 g/dL (12.0-15.5); Immature Grans % 0.1; Mean Corp. HGB Concentration 32.8 g/dL (32.0-36.0); Mean Corpuscular Hemoglobin 30.3 pg (27.0-33.0); Mean Corpuscular Volume 92.3 fL (80-95); Mean Platelet Volume 11.2 fL (8.0-11.0); Monocytes % 5.7; Neutrophils % 57.5; Platelet Count 229 x1000/uL (130-400); RBC 4.03 m/cumm (4.00-5.20); RBC Distribution Width 13.2 % (11.7-14.6); White Blood Cell Count 8.25 k/cumm (4.4-10.8)
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
[2018-08-30 11:15] LABS: ALT 104 U/L (12-78); AST 118 U/L (15-37); Albumin 3.1 g/dL (3.4-5.0); Alkaline Phosphatase 61 U/L (46-116); Anion Gap 9.9 mmol/L (3-11); BUN 9 mg/dL (7-18); Bilirubin, Total 0.2 mg/dL (0.2-1.0); CO2 29.1 mmol/L (21.0-32.0); CREATININE 0.78 mg/dL (0.55-1.02); Calcium 8.8 mg/dL (8.5-10.1); Chloride 102 mmol/L (98-107); Glucose 194 mg/dL (70-100); Potassium 3.8 mmol/L (3.5-5.1); Sodium 141 mmol/L (136-145); Total Protein 7.3 g/dL (6.4-8.2)
[2018-08-30 11:25] LABS: Acetaminophen 3 ug/mL (10-30); Salicylate < 2.8 mg/dL (2.8-20.0)
[2018-08-30 11:31] LABS: ETHANOL BLOOD < 3.0 mg/dL (<3)
[2018-08-30 12:14] LABS: *AMPHETAMINES SCREEN URINE Negative (Negative); *BARBITURATES SCREEN URINE Negative (Negative); *BENZODIAZEPINES SCREEN URINE Negative (Negative); Cannabinoids THC Negative (Negative); Cocaine Screen,Urine Negative (Negative); METHADONE URINE SCREEN Negative (Negative); OPIATES URINE SCREEN Negative (Negative)
[2018-08-30 12:16] LABS: Tricyclic Antidepressants Negative (Negative)
--- NOTE | 2018-08-30 20:27 | NUR.NOTE ---
blood glucose at 1200 was 98
[2018-08-30] MEDS: traZODone 100 MG TAB PO (21:43)
--- NOTE | 2018-08-30 21:53 | NUR.NOTE ---
Nursing Note: Received report from previous nurse. Pt has remained calm, engaged, and appropriate today. Allowed to shower, oral care performed, room cleaned and linen changed. Given HS medications as ordered, lights off and pt resting quietly at this time. CPSO present, awaiting voluntary admission, will CTM.
--- NOTE | 2018-08-30 23:12 | NUR.NOTE ---
Nursing Note: [facility] stated they had no beds tonight but may have one tomorrow
--- NOTE | 2018-08-31 04:22 | NUR.NOTE ---
Nursing Note: Pt has remained asleep this costume rental clerk. CPSO has been present. Awaiting voluntary admission, will CTM.
--- NOTE | 2018-08-31 07:02 | PDOC.ERCMPRO ---
Care Management Progress Note 08/31-This CM will reach out to [facility] at 8 am on bed availability. [facility] and [facility] have [facility] Talia but no beds available. Safety Plan has been updated. SAFETY PLAN: Jay. 08/31/18 1. Will remain in her own T-Shirt and sweatpants. (Has been waned by security. Paper scrubs not available in her size). 2. Will remain in room under direct supervision of one-on-one staff at all times provided by CPSO (DESIREE, SALES OPERATIONS ANALYST vp platforms). 3. May have paper cups, plates, finger foods, metal spoon to be accounted for by staff after meal. Diabetic diet has been ordered. 4. Follow [facility] Management of the Admitted Behavioral Health Patient policy printed and attached to the safety plan in physical chart. 5. Comfort bath system, may have shower if staff available. 6. No personal belongings except clothing and glasses. 7. No visitors at this time 8. No phone 9. Staff escort to the bathroom 10. Voluntary admission status. If Talia wishes to leave the hospital the [facility] Plate Take Out Worker must be contacted to re-evaluate her prior to her exiting the building. [facility] bed facility. Patient is currently voluntarily at [facility] and seeking placement at crisis beds and psychiatric hospitals. [facility] Frontline Plate Take Out Worker will continue seeking placement. Please contact the Exceptional Student Education Aide Melter Caster ([phone]) and [facility] Plate Take Out Worker ([phone]) for any needed changes in the Safety Plan. Safety plan has been provided to interdepartmental care team including Clinical Coordinator and Nursing Assistant Manager Airside Operations.
--- NOTE | 2018-08-31 07:11 | CMPROGNOTE_ITS ---
Care Management Progress Note 08/31-This CM will reach out to [facility] at 8 am on bed availability. [facility] Talia but no beds available. Safety Plan has been updated. SAFETY PLAN: Jay. 08/31/18 1. Will remain in her own T-Shirt and sweatpants. (Has been waned by security. Paper scrubs not available in her size). 2. Will remain in room under direct supervision of one-on-one staff at all times provided by CPSO (DESIREE, THREAD MACHINE OPERATOR loan supervisor). 3. May have paper cups, plates, finger foods, metal spoon to be accounted for by staff after meal. Diabetic diet has been ordered. 4. Follow [facility] Management of the Admitted Behavioral Health Patient policy printed and attached to the safety plan in physical chart. 5. Comfort bath system, may have shower if staff available. 6. No personal belongings except clothing and glasses. 7. No visitors at this time 8. No phone 9. Staff escort to the bathroom 10. Voluntary admission status. If Talia wishes to leave the hospital the [facility] Lunchroom Supervisor must be contacted to re-evaluate her prior to her exiting the building. [facility] bed facility. Patient is currently voluntarily at [facility] and seeking placement at crisis beds and psychiatric hospitals. [facility] Frontline Lunchroom Supervisor will continue seeking placement. Please contact the Steel Rod Buster Database Tester ([phone]) and [facility] Lunchroom Supervisor ([phone]) for any needed changes in the Safety Plan. Safety plan has been provided to interdepartmental care team including Clinical Coordinator and Nursing Shorts Sifter.
[2018-08-31] MEDS: metFORMIN 500 MG TAB PO (07:29)
[2018-08-31] MEDS: Gabapentin 300 MG CAP PO (07:30)
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
[2018-08-31] MEDS: Sertraline 50 MG TAB 150 MG PO (09:50)
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
== END 2018-08-31 11:52 ==
PROVIDERS: Emergency Medicine; Emergency Provider Student in an Organized Health Care Education/Training Program; PCP Specialist/Technologist Athletic Trainer
DX: F32.9 Major depressive disorder, single episode, unspecified (principal); S51.812A Laceration without foreign body of left forearm, initial encounter; R45.851 Suicidal ideations; X78.1XXA Intentional self-harm by knife, initial encounter; E11.9 Type 2 diabetes mellitus without complications; S60.221A Contusion of right hand, initial encounter; W22.8XXA Striking against or struck by other objects, initial encounter
CPT/HCPCS: 36415; 36416; 80053; 80307; 81025; 82962; 99285; 73130; 80320; 80329; 85025

== ENCOUNTER 2018-09-12 18:51 | Emergency (ER) | payer MEDICAID, SELFPAY ==
[2018-09-12 18:51] VITALS: BP 158/105; PULSE 84; RESP 22; O2SAT 97
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
[2018-09-12 19:27] LABS: Bilirubin Small (Negative); Blood Large (Negative); Clarity Cloudy; Glucose Negative (Negative); Ketones Trace mg/dL (Negative); Leukocyte Esterase Trace (Negative); Nitrite Negative (Negative); Specific Gravity 1.025 (1.005-1.025); Urobilinogen 0.2 EU/dL (Up TO 0.2)
[2018-09-12 19:30] LABS: Abs Immature Grans 0.05 k/cumm (0.0-0.09); Absolute Basophil Count 0.03 k/cumm (0.0-0.2); Absolute Eosinophil Count 0.34 k/cumm (0.0-0.7); Absolute Monocyte Count 0.82 k/cumm (0.11-0.7); Absolute Neutrophil Count 9.02 k/cumm (1.2-6.7); Basophils % 0.2; Eosinophils % 2.6; HCT 38.9 % (36.0-46.0); HGB 13.1 g/dL (12.0-15.5); Immature Grans % 0.4; Mean Corp. HGB Concentration 33.7 g/dL (32.0-36.0); Mean Corpuscular Hemoglobin 30.7 pg (27.0-33.0); Mean Corpuscular Volume 91.1 fL (80-95); Mean Platelet Volume 10.9 fL (8.0-11.0); Monocytes % 6.3; Neutrophils % 69.5; Platelet Count 285 x1000/uL (130-400); RBC 4.27 m/cumm (4.00-5.20); RBC Distribution Width 13.3 % (11.7-14.6); White Blood Cell Count 12.98 k/cumm (4.4-10.8)
[2018-09-12 19:31] LABS: Absolute Lymphocyte Count 2.73 k/cumm (1.2-3.4)
[2018-09-12 19:31] LABS: *AMPHETAMINES SCREEN URINE Negative (Negative); *BARBITURATES SCREEN URINE Negative (Negative); *BENZODIAZEPINES SCREEN URINE Negative (Negative); Cannabinoids THC Negative (Negative); Cocaine Screen,Urine Negative (Negative); METHADONE URINE SCREEN Negative (Negative); OPIATES URINE SCREEN Negative (Negative)
[2018-09-12 19:33] LABS: Tricyclic Antidepressants Negative (Negative)
[2018-09-12 19:35] LABS: Bacteria Many HPF (Negative); C & S Indicated? No/Sq. Contamination; Casts Negative LPF (Negative); Crystals Negative HPF (Negative); Epithelial Cells Many HPF (Negative); Mucus Negative (Negative); Other Cells Negative (Negative); RBC 20-50 (0-2)
[2018-09-12 19:42] LABS: ALT 90 U/L (12-78); AST 75 U/L (15-37); Albumin 3.7 g/dL (3.4-5.0); Alkaline Phosphatase 73 U/L (46-116); Anion Gap 10.2 mmol/L (3-11); BUN 9 mg/dL (7-18); Bilirubin, Total 0.3 mg/dL (0.2-1.0); CO2 27.8 mmol/L (21.0-32.0); CREATININE 0.71 mg/dL (0.55-1.02); Calcium 8.8 mg/dL (8.5-10.1); Chloride 100 mmol/L (98-107); Glucose 119 mg/dL (70-100); Potassium 3.7 mmol/L (3.5-5.1); Sodium 138 mmol/L (136-145); Total Protein 8.4 g/dL (6.4-8.2)
[2018-09-12 19:55] LABS: ETHANOL BLOOD < 3.0 mg/dL (<3)
[2018-09-12 20:00] LABS: Salicylate 3.4 mg/dL (2.8-20.0)
--- NOTE | 2018-09-12 20:03 | PDOC.ERCMPRO ---
Care Management Progress Note Talia has been seen in the ED 16 times in the past 6 months-six of these visits within the last month. She was transferred to [facility] for stabilization on 08/22/18-she discharged and re-presented twice on 08/25/18 to [facility] ED resulting in admissions to MED/SURG discharging to home with each event. She presents to the ED again following a negative interaction with her sister who she currently resides with. Per recent assessments, this is a behavioral pattern that INTERNAL CONTROLS ANALYST is reportedly attempting to manage in the community without further hospitalization. She will be assessed this evening by [facility] crisis to determine whether Talia requires further observation due to continued statements of self harm and inability to comply with safety planning. In the event Talia remains at [facility] through the night, she will be re-evaluated by [facility] ES or INTERNAL CONTROLS ANALYST tomorrow. VOLUNTARY FOR CRISIS BED PLACEMENT AND/OR PSYCHIATRIC STABILIZATION. SAFETY PLAN: ED Time and Date: 09/12/18 1. Personal clothing permitted. (Has been waned by security. Paper scrubs not available in her size). 2. Will remain in room under supervision of [facility] medical staff; no CPSO required per provider. 3. May have paper cups, plates, finger foods, metal spoon to be accounted for by staff after meal. 4. Follow [facility] Management of the Admitted Behavioral Health Patient policy printed and attached to the safety plan in physical chart. 5. Staff escort to shower room at RN discretion, comfort bath system available. 6. No personal belongings except clothing and glasses. 7. No visitors at this time 8. No phone contact at this time. 9. Staff escort to the bathroom. 10. Voluntary admission status. If Talia wishes to leave the hospital the [facility] Sap Functional Analyst must be contacted to re-evaluate her prior to her exiting the building. [facility] will be coordinating placement at crisis bed facility. Please refer to [facility] note for placement updates. Patient is currently voluntarily at [facility] and seeking placement at crisis beds and psychiatric hospitals. [facility] Frontline Sap Functional Analyst will continue seeking placement. Please contact the Inspector Crystal Pleater ([phone]) and [facility] Sap Functional Analyst ([phone]) for any needed changes in the Safety Plan. Safety plan has been provided to interdepartmental care team including Clinical Coordinator and Nursing Transmission Superintendent. - Services (Omit if N/A) Current MH Services: Care Bed (Currently seeking crisis bed placement.)
[2018-09-12 20:08] LABS: Acetaminophen < 2 ug/mL (10-30)
--- NOTE | 2018-09-12 20:23 | CMPROGNOTE_ITS ---
Care Management Progress Note Talia has been seen in the ED 16 times in the past 6 months-six of these visits within the last month. She was transferred to [facility] for stabilization on 08/22/18- she discharged and re-presented twice on 08/25/18 to [facility] ED resulting in admissions to MED/SURG discharging to home with each event. She presents to the ED again following a negative interaction with her sister who she currently resides with. Per recent assessments, this is a behavioral pattern that ASPHALT PLANT OPERATOR is reportedly attempting to manage in the community without further hospitalization. She will be assessed this evening by [facility] crisis to determine whether Talia requires further observation due to continued statements of self harm and inability to comply with safety planning. In the event Talia remains at [facility] through the night, she will be re-evaluated by [facility] ES or ASPHALT PLANT OPERATOR tomorrow. VOLUNTARY FOR CRISIS BED PLACEMENT AND/OR PSYCHIATRIC STABILIZATION. SAFETY PLAN: ED Time and Date: 09/12/18 1. Personal clothing permitted. (Has been waned by security. Paper scrubs not available in her size). 2. Will remain in room under supervision of [facility] medical staff; no CPSO required per provider. 3. May have paper cups, plates, finger foods, metal spoon to be accounted for by staff after meal. 4. Follow [facility] Management of the Admitted Behavioral Health Patient policy printed and attached to the safety plan in physical chart. 5. Staff escort to shower room at RN discretion, comfort bath system available. 6. No personal belongings except clothing and glasses. 7. No visitors at this time 8. No phone contact at this time. 9. Staff escort to the bathroom. 10. Voluntary admission status. If Talia wishes to leave the hospital the [facility] Prepress Proofer must be contacted to re-evaluate her prior to her exiting the building. [facility] will be coordinating placement at crisis bed facility. Please refer to [facility] note for placement updates. Patient is currently voluntarily at [facility] and seeking placement at crisis beds and psychiatric hospitals. [facility] Frontline Prepress Proofer will continue seeking placement. Please contact the Flask Cleaner Color Control Supervisor ([phone]) and [facility] Prepress Proofer ([phone]) for any needed changes in the Safety Plan. Safety plan has been provided to interdepartmental care team including Clinical Coordinator and Nursing Director Of Corporate Responsibility. - Services (Omit if N/A) Current MH Services: Care Bed (Currently seeking crisis bed placement.)
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
[2018-09-12 22:46] LABS: TSH (W/Ref FT4) 2.63 uIU/mL (0.358-3.74)
[2018-09-12 22:51] VITALS: BP 139/94; PULSE 74; O2SAT 97
[2018-09-12] MEDS: Acetaminophen 325 MG TAB 650 MG PO (23:21)
[2018-09-12] MEDS: metFORMIN 500 MG TAB (23:25)
--- NOTE | 2018-09-12 23:35 | DI.CT_ITS ---
SYMPTOM/DIAGNOSIS: PAIN, HIT HEAD ON FLOOR NONCONTRAST HEAD CT: Comparison is made with 08/18/18. A noncontrast cranial CT was performed. The ventricular system is normal in appearance. There is no evidence of an intracranial mass lesion. There is no evidence of a subdural or epidural hematoma. No focal areas of decreased attenuation are seen. CONCLUSION: Normal noncontrast Cranial CT.
[2018-09-12] MEDS: traZODone 100 MG TAB PO (23:45)
[2018-09-12] MEDS: Gabapentin 600 MG TAB PO (23:45)
--- NOTE | 2018-09-12 23:47 | DI.VRAD_ITS ---
EXAM: CT Head Without Contrast EXAM DATE/TIME: 09/12/2018 11:14 PM CLINICAL HISTORY: 22 years old, female; Injury or trauma; Injury history: Hit head on floor, ; initial encounter; Blunt trauma (contusions or hematomas); Injury date: 09/12/18; Injury details: Headache and dizziness after hitting head on floor. Forehead to floor TECHNIQUE: Imaging protocol: Axial computed tomography images of the head/brain without contrast. Coronal and sagittal reformatted images were created and reviewed. Radiation optimization: All CT scans at this facility use at least one of these dose optimization techniques: automated exposure control; mA and/or kV adjustment per patient size (includes targeted exams where dose is matched to clinical indication); or iterative reconstruction. COMPARISON: CT HEAD WO 08/18/2018 9:39 PM FINDINGS: Brain: Typical for age. No hemorrhage. No evidence of acute infarct. No mass. Ventricles: No ventriculomegaly. Bones/joints: Unremarkable. Sinuses: No sinus fluid. Mastoid air cells: Unremarkable. Soft tissues: Unremarkable. IMPRESSION: No acute intracranial abnormality. Dictated and Authenticated by: Galdino Chang MD. Ordering:DOROTHEA Duvall MD
[2018-09-13 01:55] VITALS: RESP 22
--- NOTE | 2018-09-13 09:07 | PDOC.ERCMPRO ---
Care Management Progress Note 09/13-Ramonita, Chronic Relocation Commissioner at [facility] called this morning. Ramonita stated that Talia had an appt at [facility] today but is not going to make it because she is in the emergency department for mental health issues. Ramonita stated that the last appt at [place] was missed because Talia was in the ED as well. Ramonita states they have been trying to get Talia into the office to help her with her diabetes and to address her medical issues. The current phone number is not working. Ramonita also stated that Talia was in the emergency department at [facility] on 09/09 for a syncopal episode and that Talia was questioning whether it had to do with her IUD. At [place], Talia's blood sugars were high. Ramonita as been reaching out this week but again, the phone number is not working. Discussed the above with Dr. Angulo. This CM called Ji at [facility] at 0910 this morning. Ji states that LOG CLERK will be coming to see Talia and they should be here within the hour. Discussed with Ji the possibility of LOG CLERK finding Talia housing where she lives alone rather than with her boyfriend and her sister. Most of the ED visits were because of an argument with her sister. Currently waiting on LOG CLERK and will discuss disposition once they have evaluated.
--- NOTE | 2018-09-13 09:19 | CMPROGNOTE_ITS ---
Care Management Progress Note 09/13-Ramonita, Chronic Fresh Food Manager at [facility] called this morning. Ramonita stated that Talia had an appt at [facility] today but is not going to make it because she is in the emergency department for mental health issues. Ramonita stated that the last appt at [facility] was missed because Talia was in the ED as well. Ramonita states they have been trying to get Talia into the office to help her with her diabetes and to address her medical issues. The current phone number is not working. Ramonita also stated that Talia was in the emergency department at [facility] on 09/09 for a syncopal episode and that Talia was questioning whether it had to do with her IUD. At [place], Talia's blood sugars were high. Ramonita as been reaching out this week but again, the phone number is not working. Discussed the above with Dr. Angulo. This CM called Ji at [facility] at 0910 this morning. Ji states that EXPORT SALES ASSISTANT will be coming to see Talia and they should be here within the hour. Discussed with Ji the possibility of EXPORT SALES ASSISTANT finding Talia housing where she lives alone rather than with her boyfriend and her sister. Most of the ED visits were because of an argument with her sister. Currently waiting on EXPORT SALES ASSISTANT and will discuss disposition once they have evaluated.
[2018-09-13] MEDS: Gabapentin 600 MG TAB PO (10:29)
[2018-09-13] MEDS: metFORMIN 500 MG TAB PO (10:29)
[2018-09-13] MEDS: Sertraline 50 MG TAB 200 MG PO (10:29)
[2018-09-13 11:22] VITALS: BP 148/100; PULSE 70; RESP 16; TEMP 36.6; O2SAT 98
--- NOTE | 2018-09-13 11:36 | PDOC.MHCN ---
Date of service: 09/13/18 Time of Service: 11:38 Mental Health Crisis Note Presenting Issue How did you arrive at the ED and why did you come: Client was brought to [facility] via ambulance as the client was experiencing suicidal ideation. Precipitating Factors Client states that she can keep herself safe. Disposition BEHAVIOR: Cooperative EYE CONTACT: Appropriate MOOD: Frustrated with living situation AFFECT: Frustrated and sad APPETITE: Good SLEEP(trouble falling/staying asleep: Normally sleeps okay Plan Client has ageed to be safe and will return home with the assistance of [employer] staff. Client has an appointment with Vi Joseph [facility] therapist, on 09/14/2018 at 2:00. Client has an appointment with Ivonne Munoz [facility] PMHNP, on 09/20/2018 4:30.
--- NOTE | 2018-09-13 12:11 | PDOC.MHCN_ITS ---
Date of service: 09/13/18 Time of Service: 11:38 Mental Health Crisis Note Presenting Issue How did you arrive at the ED and why did you come: Client was brought to [facility] via ambulance as the client was experiencing suicidal ideation. Precipitating Factors Client states that she can keep herself safe. Disposition BEHAVIOR: Cooperative EYE CONTACT: Appropriate MOOD: Frustrated with living situation AFFECT: Frustrated and sad APPETITE: Good SLEEP(trouble falling/staying asleep: Normally sleeps okay Plan Client has ageed to be safe and will return home with the assistance of [employer] staff. Client has an appointment with Vi Joseph [facility] therapist, on 09/14/2018 at 2:00. Client has an appointment with Ivonne Munoz [facility] PMHNP, on 09/20/2018 4:30.
== END 2018-09-13 11:20 | disposition home or self-care (01) ==
PROVIDERS: Emergency Medicine; Student in an Organized Health Care Education/Training Program; Emergency Provider Emergency Medicine; PCP Specialist/Technologist Athletic Trainer
DX: F60.3 Borderline personality disorder (principal); R45.851 Suicidal ideations; R45.850 Homicidal ideations; R51 Headache
CPT/HCPCS: 36415; 36416; 80053; 80307; 81025; 82962; 99285; 70450; 80320; 80329; 81003; 81015; 84443; 85025; 99284

== ENCOUNTER 2018-09-20 15:41 | Emergency (ER) | payer MEDICAID, SELFPAY ==
[2018-09-20 16:02] VITALS: BP 137/70; PULSE 82; RESP 16; TEMP 36.6
--- NOTE | 2018-09-20 16:08 | DI.RAD_ITS ---
SYMPTOM/DIAGNOSIS: EVALUATE FOR GLASS IN PUNCTURE WOUND, LACERATION LEFT FOREARM: Two views were obtained, suspicion of foreign body. No bony abnormality or foreign body identified.
[2018-09-20] MEDS: Acetaminophen 500 MG TAB 1000 MG PO (16:27)
[2018-09-20] MEDS: Lidocaine/Epinephri/Tetracaine Topical Gel 3 ML (16:28)
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
--- NOTE | 2018-09-20 17:30 | DI.VRAD_ITS ---
EXAM: XR Left Forearm, 2 Views EXAM DATE/TIME: 09/20/2018 4:09 PM CLINICAL HISTORY: 22 years old, female; Signs and symptoms; Other: Possible superficial foreign body; Additional info: Evaluation for glass in wound TECHNIQUE: Imaging protocol: XR Left forearm 2 views. COMPARISON: No relevant prior studies available. FINDINGS: Bones/joints: Normal. Soft tissues: No significant soft tissue swelling. No radiopaque foreign bodies. IMPRESSION: No radiopaque foreign bodies. Dictated and Authenticated by: Francisco Rolon MD. Ordering:NORMA Lee MD
== END 2018-09-20 18:47 | disposition home or self-care (01) ==
PROVIDERS: Emergency Provider Nurse Practitioner Family; PCP Specialist/Technologist Athletic Trainer
DX: S50.852A Superficial foreign body of left forearm, initial encounter (principal); W01.0XXA Fall on same level from slipping, tripping and stumbling without subsequent striking against object, initial encounter
CPT/HCPCS: 10120; 73090

== ENCOUNTER 2018-10-09 19:06 | Emergency (ER) | payer MEDICAID, SELFPAY ==
--- NOTE | 2018-10-09 19:10 | NUR.NOTE ---
i have some light cramping and i took a test and it was negative so i want to get checked if it was a fals negative
[2018-10-09 19:12] VITALS: BP 163/93; PULSE 88; RESP 17; TEMP 37.2; O2SAT 95
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
[2018-10-09 19:40] VITALS: BP 163/93; PULSE 88; RESP 17; TEMP 37.2; O2SAT 95
== END 2018-10-09 19:40 | disposition home or self-care (01) ==
PROVIDERS: Emergency Provider Student in an Organized Health Care Education/Training Program; PCP Specialist/Technologist Athletic Trainer
DX: Z32.02 Encounter for pregnancy test, result negative (principal)
CPT/HCPCS: 81025; 99282

== ENCOUNTER 2018-10-14 21:54 | Emergency (ER) | payer MEDICAID, SELFPAY ==
[2018-10-14 22:00] VITALS: BP 141/115; PULSE 88; RESP 18; TEMP 36.8; O2SAT 95
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
[2018-10-14 22:27] LABS: Bilirubin Negative (Negative); Blood Large (Negative); Clarity Cloudy; Glucose Negative (Negative); Ketones Negative (Negative); Leukocyte Esterase Negative (Negative); Nitrite Negative (Negative); Specific Gravity >= 1.030 (1.005-1.025); Urobilinogen 0.2 EU/dL (Up TO 0.2); pH 6.5 (5-8)
[2018-10-14 22:29] LABS: C & S Indicated? Yes; RBC >50 (0-2)
== END 2018-10-14 23:05 | disposition home or self-care (01) ==
PROVIDERS: Emergency Provider Physician Assistant; PCP Specialist/Technologist Athletic Trainer
DX: N92.3 Ovulation bleeding (principal)
CPT/HCPCS: 81025; 87077; 99283; 81003; 81015; 87086; 99282

== ENCOUNTER 2018-10-24 21:22 | Emergency (ER) | payer MEDICAID, SELFPAY ==
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
[2018-10-24 21:39] VITALS: BP 156/105; PULSE 105; RESP 26; TEMP 37.1; O2SAT 98
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
--- NOTE | 2018-10-24 21:51 | NUR.NOTE ---
Nursing Note: Per no sitter calling counsilor
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
[2018-10-24 23:37] VITALS: BP 156/105; PULSE 105; RESP 26; O2SAT 98
== END 2018-10-24 23:37 | disposition home or self-care (01) ==
PROVIDERS: Emergency Provider Emergency Medicine; PCP Specialist/Technologist Athletic Trainer
DX: F43.20 Adjustment disorder, unspecified (principal); S50.812A Abrasion of left forearm, initial encounter; X83.8XXA Intentional self-harm by other specified means, initial encounter; E11.9 Type 2 diabetes mellitus without complications
CPT/HCPCS: 81025; 99284

== ENCOUNTER 2018-10-26 19:39 | Emergency (ER) | payer MEDICAID, SELFPAY ==
[2018-10-26 19:42] VITALS: BP 163/84; PULSE 92; RESP 18; TEMP 36.7; O2SAT 96
[2018-10-26 19:53] VITALS: RESP 18
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
== END 2018-10-26 22:19 | disposition home or self-care (01) ==
PROVIDERS: Emergency Provider Emergency Medicine; PCP Specialist/Technologist Athletic Trainer
DX: F43.22 Adjustment disorder with anxiety (principal)
CPT/HCPCS: 99283

== ENCOUNTER 2018-11-15 21:59 | Emergency (ER) | payer MEDICARE, MEDICAID, SELFPAY ==
[2018-11-15 22:03] VITALS: BP 150/98; PULSE 90; RESP 18; TEMP 36.6; O2SAT 96
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
--- NOTE | 2018-11-15 23:49 | NUR.NOTE ---
Nursing Note: Pt provided w/portable phone to call [address] to inquire about a motel voucher
== END 2018-11-16 00:59 | disposition home or self-care (01) ==
PROVIDERS: Emergency Provider Nurse Practitioner Family; PCP Specialist/Technologist Athletic Trainer
DX: R45.89 Other symptoms and signs involving emotional state (principal); Z59.0 Homelessness; E11.9 Type 2 diabetes mellitus without complications; Z79.84 Long term (current) use of oral hypoglycemic drugs
CPT/HCPCS: 99281

== ENCOUNTER 2018-11-17 10:13 | Emergency (ER) | payer MEDICARE, MEDICAID, SELFPAY ==
[2018-11-17 10:19] VITALS: BP 142/100; PULSE 97; RESP 20; TEMP 36.8; O2SAT 98
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
[2018-11-17] MEDS: Doxycycline Hyclate 100 MG CAP 200 MG PO (10:41)
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
[2018-11-17 10:45] VITALS: BP 142/100; PULSE 97; RESP 20; TEMP 36.8; O2SAT 98
== END 2018-11-17 10:46 | disposition home or self-care (01) ==
PROVIDERS: Emergency Provider Nurse Practitioner Family; PCP Specialist/Technologist Athletic Trainer
DX: S30.861A Insect bite (nonvenomous) of abdominal wall, initial encounter (principal); W57.XXXA Bitten or stung by nonvenomous insect and other nonvenomous arthropods, initial encounter; N91.2 Amenorrhea, unspecified
CPT/HCPCS: 36415; 99283; 84702

== ENCOUNTER 2018-11-17 13:17 | Outpatient (CLI) | payer MEDICAID, SELFPAY ==
[2018-11-17 14:33] LABS: HCG Quant, Pregnancy < 1 mIU/mL (1-3)
== END 2018-11-17 13:37 ==
PROVIDERS: PCP Specialist/Technologist Athletic Trainer; Visit Provider Obstetrics & Gynecology
DX: N91.2 Amenorrhea, unspecified (principal)
CPT/HCPCS: 36415; 84702